=== PATIENT | female | born 1935 | race Hispanic/Latino ===

== ENCOUNTER 2017-07-10 15:14 | Inpatient (IN) | payer MEDICARE ==
[~2017-07-10] VITALS: Ht 162.6 cm; Wt 81.2 kg
[~2017-07-10 15:14] MED LIST: ALEVE220 M1 PO; LISINOPRIL20 MG PO; MECLIZINE HCL12.5 MG PO; OMEPRAZOLE40 MG PO; PRAVASTATIN SOD40 MG PO; TIZANIDINE HCL4 MG PO
[2017-07-10] MEDS ORDERED: HYDROCODONE/APAP 5MG-325MG TAB PO ONE (15:45)
[2017-07-10] MEDS ORDERED: IBUPROFEN 600 MG TAB PO STA (16:03)
[2017-07-10 16:16] LABS: BASOPHILS % 0.2 % (0.0-1.0); HEMATOCRIT 30.2 % (34.2-44.1); HEMOGLOBIN 10.3 g/dL (12.0-16.0); LYMPHOCYTES # (AUTO) 0.4 (1.0-3.2); MEAN CORPUSCULAR HEMOGLOBIN 36.9 pg (28-32); MEAN CORPUSCULAR HGB CONC 34.1 g/dL (31-35); MEAN CORPUSCULAR VOLUME 108.2 fL (81-99); MONOCYTES # (AUTO) 7.1 (0.2-0.8); MONOCYTES % 33.4 % (4.4-11.3); NEUTROPHILS # (AUTO) 13.5 (2.1-6.9); NEUTROPHILS % 63.5 % (38.7-80.0); PLATELET COUNT 211 x10e3/uL (140-360); RED BLOOD COUNT 2.79 x10e6/uL (3.6-5.1); RED CELL DISTRIBUTION WIDTH 18.2 % (11.7-14.4)
[2017-07-10 16:36] LABS: ALANINE AMINOTRANSFERASE 10 IU/L (0-55); ALBUMIN 3.6 g/dL (3.5-5.0); ALBUMIN/GLOBULIN RATIO 0.9 (0.8-2.0); ALKALINE PHOSPHATASE 63 IU/L (40-150); ANION GAP 13.9 mmol/L (8-16); BLOOD UREA NITROGEN 16 mg/dL (7-26); BUN/CREATININE RATIO 19 (6-25); CALCIUM 10.7 mg/dL (8.4-10.2); CARBON DIOXIDE 28 mmol/L (22-29); CHLORIDE 96 mmol/L (98-107); CREATININE, SERUM 0.84 mg/dL (0.57-1.11); EST GLOMERULAR FILTRATION RATE > 60 ML/MIN (60-); GLUCOSE 114 mg/dL (74-118); POTASSIUM 3.9 mmol/L (3.5-5.1); SODIUM 134 mmol/L (136-145)
--- NOTE | 2017-07-10 16:45 | Diagnostic Imaging Report ---
PROCEDURE:KNEE THREE VIEWS BILATERAL COMPARISON:None. INDICATIONS:LEFT KNEE PAIN/SWELLING FINDINGS: There are no fractures, dislocations, lytic or blastic lesions. The bones are well-mineralized. The soft-tissues are unremarkable. Severe degenerative changes in the right knee with lggv-jk-gpqs contact and bony remodeling of the lateral compartment. Moderate degenerative changes in the medial compartment with meniscal calcifications. Moderate degenerative changes in the patellofemoral compartment with a large suprapatellar joint effusion. Large loose joint bodies posteriorly. Moderate tricompartmental degenerative changes in the left knee. The lateral meniscal calcifications. Moderate suprapatellar joint effusions. Small lucent bodies. CONCLUSION: 1. Severe degenerative changes in the right knee with hrbh-mv-wryb contact and lateral compartment. 2. Moderate degenerative changes in left knee. Dictated by: Alfredo Hopkins M.D. on 07/10/2017 at 16:46 Electronically approved by: Alfredo Hopkins M.D. on 07/10/2017 at 16:46
[2017-07-10 17:07] LABS: LYMPHOCYTES % (MANUAL) 2 % (19-48); METAMYELOCYTES % (MANUAL) 3 % (0-0); MONOCYTES % (MANUAL) 24 % (3.4-9.0); NEUTROPHILS % (MANUAL) 70 % (40-74)
[2017-07-10 17:08] LABS: PLATELET ESTIMATE ADEQUATE; PLATELET MORPHOLOGY COMMENT NORMAL; RBC MORPHOLOGY COMMENT NORMAL
--- NOTE | 2017-07-10 20:47 | Diagnostic Imaging Report ---
EXAMINATION: CHEST SINGLE (PORTABLE) INDICATION: \S\fever \S\[id number] \S\1950 \S\Y COMPARISON: 07/06/2013 FINDINGS: AP view TUBES and LINES: None. LUNGS: Lungs are well inflated. Lungs are clear. There is no evidence of pneumonia or pulmonary edema. PLEURA: No pleural effusion or pneumothorax. HEART AND MEDIASTINUM: The cardiac silhouette is borderline in size. Aorta is calcified and mildly tortuous. BONES AND SOFT TISSUES: No acute osseous lesion. Soft tissues are unremarkable. UPPER ABDOMEN: No free air under the diaphragm. IMPRESSION: No acute thoracic abnormality. Signed by: Dr. Kenton Greer MD on 07/10/2017 8:44 PM
[2017-07-10] MEDS ORDERED: LIDOCAINE HCL 1% LOCAL INJ 20 ML VIAL INJ ONE (21:30)
[2017-07-10 21:41] LABS: BILIRUBIN,URINE 1+ (NEGATIVE); KETONES,URINE 2+ (NEGATIVE); LEUKOCYTE ESTERASE ,URINE TRACE (NEGATIVE); NITRITE,URINE NEGATIVE (NEGATIVE); URINE UROBILINOGEN 8 mg/dL (0.2 - 1)
[2017-07-10 21:42] LABS: CLARITY,URINE SL CLOUDY (CLEAR); COLOR,URINE ORANGE (YELLOW); PROTEIN,URINE DIPSTICK TRACE (NEGATIVE)
[2017-07-10] MEDS ORDERED: PIPER-TAZ 3.375 GM 50 ML IV STA (21:55)
[2017-07-10] MEDS ORDERED: VANCOMYCIN 1GM/NS 250 ML 250 ML IV STA (21:55)
[2017-07-10 22:00] LABS: BACTERIA,URINE FEW /HPF; EPITHELIAL CELLS,URINE RARE /LPF; WBC,URINE (MAN) 0-5 /HPF (0-5)
[2017-07-10 23:06] LABS: BODY FLUID APPEARANCE CLOUDY; BODY FLUID COLOR YELLOW; BODY FLUID TYPE SYNOVIAL
[2017-07-10 23:07] LABS: RBC,BODY FLUID 0 cells/uL; WBC,BODY FLUID 128267 cells/uL
[2017-07-10] MEDS ORDERED: HYDROCODONE/APAP 5MG-325MG TAB ONE (23:22)
[2017-07-10 23:34] LABS: LYMPHOCYTES,BODY FLUID 5 %; NEUTROPHILS,BODY FLUID 95 %
[2017-07-10] MEDS ORDERED: SODIUM CHLORIDE 0.9% 1000ML 1,000 ML IV ONE (23:45)
[2017-07-10] MEDS ORDERED: ONDANSETRON HCL INJ 2 MG/ML VIAL IV PRN (23:45)
[2017-07-10] MEDS ORDERED: VANCOMYCIN 1GM/NS 250 ML 250 ML IV SCH (23:45)
--- OUTSIDE RECORDS SUMMARY | 2017-07-10 23:58 | XMS REPORT ---
Author Author [facility] [place] Address Unknown Phone Unavailable Care Team Providers Care Salad Bar Clerk Name Role Phone VEDA LAWSON Unavailable Unavailable Problems This patient has no known problems. Allergies, Adverse Reactions, Alerts This patient has no known allergies or adverse reactions. Medications This patient has no known medications. Results Test Description Test Time Test Comments Text Results Atomic Results Result Comments CHEST SINGLE (PORTABLE) [place] [address] Patient Name: CARMINA ESPINAL MR #: [id number] : 1935 Age/Sex: 82/F Req #: [id number] Adm Physician: Ordered by: CONTRERAS MARROQUIN MD Report #: [id number] Location: ER Room/Bed: ___ Procedure: [id number] DX/CHEST SINGLE (PORTABLE) Exam Date: 07/10/17 Exam Time: 1949 REPORT STATUS: Signed EXAMINATION: CHEST SINGLE (PORTABLE) INDICATION: COMPARISON: 07/06/2013 FINDINGS: AP view TUBES and LINES: None. LUNGS: Lungs are well inflated. Lungs are clear. There is no evidence of pneumonia or pulmonary edema. PLEURA: No pleural effusion or pneumothorax. HEART AND MEDIASTINUM: The cardiac silhouette is borderline in size. Aorta is calcified and mildly tortuous. BONES AND SOFT TISSUES: No acute osseous lesion. Soft tissues are unremarkable. UPPER ABDOMEN: No free air under the diaphragm. IMPRESSION: No acute thoracic abnormality. Signed by: Dr. Kenton Weathers MD on 2017 8:44 PM Dictated By: KENTON WEATHERS MD 43 Transcribed By: KAILA on 07/10/172043 COPY TO: CONTRERAS MARROQUIN MD KNEE THREE VIEWS BILATERAL [place] [address] Patient Name: CARMINA ESPINAL MR #: [id number] : 1935 Age/Sex: 82/F Req #: [id number] Adm Physician: Ordered by: EMILIO HWANG NP Report #: [id number] Location: ER Room/Bed: Procedure: [id number] DX/KNEE THREE VIEWS BILATERAL Exam Date: 07/10/17 Exam Time: 1615 REPORT STATUS: Signed PROCEDURE: KNEE THREE VIEWS BILATERAL COMPARISON: None. INDICATIONS: LEFT KNEE PAIN/SWELLING FINDINGS: There are no fractures, dislocations, lytic or blastic lesions. The bones are well-mineralized. The soft-tissues are unremarkable. Severe degenerative changes in the right knee with brdj-rr-okva contact and bony remodeling of the lateral compartment. Moderate degenerative changes in the medial compartment with meniscal calcifications. Moderate degenerative changes in the patellofemoral compartment with a large suprapatellar joint effusion. Large loose joint bodies posteriorly. Moderate tricompartmental degenerative changes in the left knee. The lateral meniscal calcifications. Moderate suprapatellar joint effusions. Small lucent bodies. CONCLUSION: 1. Severe degenerative changes in the right knee with tinx-ik-bhas contact and lateral compartment. 2. Moderate degenerative changes in left knee. Dictated by : Christian Barron M.D. on 07/10/2017 at 16:46 Electronically approved by: Christian Barron M.D. on 07/10/2017 at 16:46 Dictated By: CHRISTIAN BARRON MD 45 Transcribed By: VIBHA on 07/10/171645 COPY TO: EMILIO HWANG NP
[2017-07-11] VITALS (45 sets, daily range): BP systolic 96–187; BP diastolic 44–130
[2017-07-11] MEDS: SODIUM CHLORIDE 0.9% 1000ML 1,000 ML IV SCH ×3 (01:04→19:20)
[2017-07-11] MEDS ORDERED: VITAMIN D35000 UNIT PO (02:24)
[2017-07-11] MEDS ORDERED: MELOXICAM7.5 MG PO (02:24)
[2017-07-11] MEDS ORDERED: SINGULAIR10 MG PO (02:24)
[2017-07-11] MEDS ORDERED: BACITRACIN 50,000 UNIT VIAL ONE ×3 (02:25→13:39)
[2017-07-11] MEDS ORDERED: ZOFRAN ODT4 MG SL (02:26)
[2017-07-11] MEDS ORDERED: TIMOLOL MALEATE10 ML OU (02:26)
[2017-07-11] MEDS ORDERED: PIPER-TAZ 3.375 GM 50 ML IV SCH (06:00)
[2017-07-11] MEDS ORDERED: ONDANSETRON HCL 4 MG ORAL DISINTEGRATING TAB SL PRN (06:30)
[2017-07-11 06:34] LABS: BASOPHILS % 0.2 % (0.0-1.0); HEMATOCRIT 23.6 % (34.2-44.1); HEMOGLOBIN 8.1 g/dL (12.0-16.0); LYMPHOCYTES # (AUTO) 1.2 (1.0-3.2); MEAN CORPUSCULAR HEMOGLOBIN 37.9 pg (28-32); MEAN CORPUSCULAR HGB CONC 34.3 g/dL (31-35); MEAN CORPUSCULAR VOLUME 110.3 fL (81-99); MONOCYTES # (AUTO) 6.4 (0.2-0.8); MONOCYTES % 38.7 % (4.4-11.3); NEUTROPHILS # (AUTO) 8.8 (2.1-6.9); NEUTROPHILS % 53.2 % (38.7-80.0); PLATELET COUNT 170 x10e3/uL (140-360); RED BLOOD COUNT 2.14 x10e6/uL (3.6-5.1); RED CELL DISTRIBUTION WIDTH 18.5 % (11.7-14.4)
[2017-07-11] MEDS: PIPER-TAZ 3.375 GM 50 ML IV SCH ×3 (06:51→23:22)
[2017-07-11 06:54] LABS: ALANINE AMINOTRANSFERASE 8 IU/L (0-55); ALBUMIN 2.6 g/dL (3.5-5.0); ALBUMIN/GLOBULIN RATIO 0.8 (0.8-2.0); ALKALINE PHOSPHATASE 53 IU/L (40-150); ANION GAP 10.5 mmol/L (8-16); BLOOD UREA NITROGEN 20 mg/dL (7-26); BUN/CREATININE RATIO 27 (6-25); CALCIUM 9.6 mg/dL (8.4-10.2); CARBON DIOXIDE 26 mmol/L (22-29); CHLORIDE 102 mmol/L (98-107); CREATININE, SERUM 0.73 mg/dL (0.57-1.11); EST GLOMERULAR FILTRATION RATE > 60 ML/MIN (60-); GLUCOSE 105 mg/dL (74-118); POTASSIUM 3.5 mmol/L (3.5-5.1); SODIUM 135 mmol/L (136-145)
[2017-07-11] MEDS: PANTOPRAZOLE SOD 40 MG TABEC PO SCH (07:30)
[2017-07-11] MEDS ORDERED: VANCOMYCIN 1GM/NS 250 ML 250 ML IV SCH (09:00)
[2017-07-11] MEDS: TIZANIDINE HCL 4 MG TAB PO SCH ×2 (09:00→17:00)
[2017-07-11] MEDS: TIMOLOL MALEATE(OPTHALMIC) 1 EA BTL OU SCH (09:00)
--- NOTE | 2017-07-11 09:01 | History and Physical ---
PRIMARY CARE PHYSICIAN: The patient does not recall. CHIEF COMPLAINT: Knee pain. HISTORY OF PRESENT ILLNESS: This is an 82-year-old woman with a history of septic knee, now developing swelling and pain of the bilateral knees. She states this has been ongoing for about 3 days. She has no fevers. Her last hospitalization she states was last year at [facility] when she had arthrocentesis. She states her last antibiotic use was last year. Here arthrocentesis was performed, which showed white blood cell count of 128,000. The patient was admitted for further evaluation and management. Overnight, the patient was found to have atrial fibrillation, which she states is new. PAST MEDICAL HISTORY: Septic arthritis of the knee, hypertension, GERD. PAST SURGICAL HISTORY: Hysterectomy, bilateral cataract excision. ALLERGIES: PER ELECTRONIC MEDICAL RECORD. FAMILY HISTORY AND SOCIAL HISTORY: The patient is . She has 3 children. No alcohol, illicits or cigarettes. MEDICATIONS: Per electronic medical record. REVIEW OF SYSTEMS: Denies any chest pain or shortness of breath. PHYSICAL EXAMINATION VITAL SIGNS: Have been reviewed. T-max 101.3, blood pressure 106/51. GENERAL: A tired-appearing woman resting in bed. HEENT: Anicteric. CARDIOVASCULAR: Normal S1 and S2. LUNGS: Moderate breath sounds. ABDOMEN: Soft, nontender, nondistended. EXTREMITIES: She has large, edematous knees with Band-Aid in place. She has minimal tenderness of the knees. SKIN: Dry. PSYCHIATRIC: Flat affect. NEUROLOGIC: Alert and oriented times 2. Moving all extremities. LABS: Reviewed. MEDICATIONS: Reviewed. ASSESSMENT AND PLAN: An 82-year-old woman. 1. Sepsis. 2. Septic arthritis of the knees. 3. Atrial fibrillation, new onset. 4. Microcytic anemia. 5. Hypercalcemia secondary to dehydration. 6. Hyperbilirubinemia, possibly secondary to dehydration. 7. Overweight state. Body mass index 29.2. 8. 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 PLAN 1. Continue IV Zosyn and IV vancomycin. 2. Rate control. Rehydrate. Cardiology consultation for AFib and for preop evaluation. 3. Receiving muscle relaxant, tizanidine. 4. Continue Singulair. 5. Follow blood counts. 6. Rehydrate and reassess calcium and bilirubin levels. 7. Pain control for severe degenerative joint knee disease. 8. Lovenox and Protonix. 9. Disposition: Cardiology for preop evaluation and for management of AFib. Orthopedics for management of septic arthritis. Will continue IV antibiotics. 10. Critical care time more than 35 minutes. Job#: [id number]
[2017-07-11 09:12] LABS: MAGNESIUM 1.3 MG/DL (1.3-2.1)
--- NOTE | 2017-07-11 09:19 | Consultation ---
DATE OF CONSULTATION: July 11, 2017 REASON FOR CONSULTATION: AFib. HPI: This is an 82-year-old female that presented with right knee pain and edema. According to the family, the son and daughter at the bedside, this has been going on for many years now. She is never getting better. She was brought over here for evaluation. She had an x-ray done that showed severe degenerative changes with nwpj-bl-aydj contact on the right knee, and surgical intervention was planned. Yesterday, she went into AFib, and was transferred to the ICU for surgical and cardiac evaluation. She has no cardiac history of AFib, and no cardiac issue according to the family in the past. She denied any chest pain, any palpitations, any dizziness, any shortness of breath, or diaphoresis. PAST MEDICAL HISTORY: Hypertension, hyperlipidemia, chronic anemia, vertigo, right knee pain and swelling. PAST SURGICAL HISTORY: and hysterectomy and fluid aspiration from the right knee. FAMILY HISTORY: Positive for hypertension. SOCIAL HISTORY: No smoking. No drinking. She lives at home with family. MEDICATIONS: See med list. ALLERGIES: SHE IS NOT ALLERGIC TO ANY MEDICATIONS. REVIEW OF SYSTEMS: Negative except as mentioned above. PHYSICAL EXAMINATION VITAL SIGNS: Temperature 98, heart rate 79, blood pressure 124/56, respirations 18, oxygen saturation 98% on 2 L nasal cannula. GENERAL: She is alert, awake and oriented times 3. HEENT: Mucous membranes moist. NECK: Supple. LUNGS: Bilateral clear to auscultation. CARDIOVASCULAR: Irregularly irregular. ABDOMEN: Soft. NEUROLOGICAL: Intact. EXTREMITIES: Lower with no edema. The right knee is swollen. LABS: Sodium 135, potassium 3.5, chloride 102, CO2 26, BUN 20, creatinine 0.73, glucose 105. White blood cells 16.6, hemoglobin 8.1, hematocrit 23.6, and platelets 170,000. IMPRESSION 1. Atrial fibrillation, new onset with controlled rate. 2. Hypertension. 3. Anemia. 4. Septic arthritis of the right knee. ASSESSMENT AND PLAN: Will go ahead and get an echocardiogram to assess the left ventricular and the valve function. Will put her on low dose beta joe. Check TSH. I discussed long-term p.o. anticoagulation with the family. They want to think about it. Will start anticoagulation if family agrees after surgical intervention. Further cardiac workup pending clinical course. Thank you for this consultation. DICTATED BY NURIA BROOKE NP Job#: [id number] RI
[2017-07-11 09:39] LABS: THYROID STIMULATING HORMONE 0.793 uIU/mL (0.350-4.940)
[2017-07-11] MEDS: VANCOMYCIN 1GM/NS 250 ML 250 ML IV SCH ×2 (10:06→21:22)
[2017-07-11 10:53] LABS: BODY FLUID TYPE SYNOVIAL
[2017-07-11 10:54] LABS: BODY FLUID APPEARANCE CLOUDY; BODY FLUID COLOR YELLOW
[2017-07-11 10:55] LABS: RBC,BODY FLUID 1980 cells/uL; WBC,BODY FLUID 516582 cells/uL
[2017-07-11 11:01] LABS: MONO/MACROPHG,BODY FLUID 2 %; NEUTROPHILS,BODY FLUID 98 %
[2017-07-11 11:25] LABS: BAND NEUTROPHILS % (MANUAL) 6 %; LYMPHOCYTES % (MANUAL) 6 % (19-48); MONOCYTES % (MANUAL) 23 % (3.4-9.0); NEUTROPHILS % (MANUAL) 65 % (40-74)
[2017-07-11 11:27] LABS: ANISOCYTOSIS MODERATE; PLATELET ESTIMATE ADEQUATE; PLATELET MORPHOLOGY COMMENT NORMAL; RBC MORPHOLOGY COMMENT ABNORMAL
[2017-07-11 11:28] LABS: HYPOCHROMASIA SLIGHT
[2017-07-11] MEDS ORDERED: FENTANYL CITRATE/PF 100MCG/2 ML INJ ONE ×2 (16:05→18:05)
[2017-07-11] MEDS: ENOXAPARIN SOD INJ 40 MG/0.4 ML SYR SC SCH (17:00)
[2017-07-11] MEDS: MONTELUKAST SODIUM 10 MG TAB PO SCH (17:00)
[2017-07-11] MEDS ORDERED: SEVOFLURANE INHAL SOLN 250 ML PEN BTL ONE (17:41)
[2017-07-11] MEDS ORDERED: ONDANSETRON HCL INJ 2 MG/ML VIAL ONE (17:41)
[2017-07-11] MEDS ORDERED: LABETALOL HCL 5 MG/ML 20ML VIAL ONE (17:41)
[2017-07-11] MEDS ORDERED: PROPOFOL IV EMULSION 10 MG/ML 20 ML VIAL ONE (17:41)
[2017-07-11] MEDS ORDERED: DEXAMETHASONE SOD PHOS INJ 4 MG/ML VIAL ONE (17:41)
[2017-07-11] MEDS ORDERED: LIDOCAINE HCL 2% LOCAL INJ 5 ML SDV VIAL INJ ONE (17:41)
[2017-07-11] MEDS ORDERED: HYDROMORPHONE 0.2MG/ML-SOD CHL 30ML PCA SYRINGE IV PRN (17:45)
[2017-07-11] MEDS ORDERED: MIDAZOLAM HCL 2 MG/2 ML VIAL ONE (18:05)
[2017-07-11] MEDS: PRAVASTATIN 20 MG TAB PO SCH (20:20)
[2017-07-11] MEDS: MORPHINE SULFATE 2 MG/ML SYR IV PRN (20:20)
[2017-07-11] MEDS: METOPROLOL TARTRATE 25 MG TAB PO SCH (23:22)
[2017-07-11] MEDS: ACETAMINOPHEN 325 MG TAB PO PRN (23:22)
[2017-07-12] VITALS (49 sets, daily range): BP systolic 98–176; BP diastolic 37–75
[2017-07-12] MEDS: SODIUM CHLORIDE 0.9% 1000ML 1,000 ML IV SCH ×2 (05:24→13:00)
[2017-07-12 06:06] LABS: BASOPHILS % 0.2 % (0.0-1.0); HEMATOCRIT 23.5 % (34.2-44.1); LYMPHOCYTES # (AUTO) 1.2 (1.0-3.2); LYMPHOCYTES % 7.7 % (18.0-39.1); MEAN CORPUSCULAR HEMOGLOBIN 37.7 pg (28-32); MEAN CORPUSCULAR VOLUME 110.8 fL (81-99); MONOCYTES # (AUTO) 4.9 (0.2-0.8); NEUTROPHILS # (AUTO) 9.5 (2.1-6.9); NEUTROPHILS % 60.3 % (38.7-80.0); PLATELET COUNT 176 x10e3/uL (140-360); RED BLOOD COUNT 2.12 x10e6/uL (3.6-5.1); RED CELL DISTRIBUTION WIDTH 18.5 % (11.7-14.4)
[2017-07-12] MEDS: PANTOPRAZOLE SOD 40 MG TABEC PO SCH (08:30)
[2017-07-12] MEDS: PIPER-TAZ 3.375 GM 50 ML IV SCH ×3 (08:30→23:00)
[2017-07-12] MEDS: METOPROLOL TARTRATE 25 MG TAB PO SCH ×2 (08:32→21:06)
[2017-07-12] MEDS: TIZANIDINE HCL 4 MG TAB PO SCH ×2 (08:33→17:00)
[2017-07-12] MEDS: TIMOLOL MALEATE(OPTHALMIC) 1 EA BTL OU SCH (09:00)
[2017-07-12] MEDS: VANCOMYCIN 1GM/NS 250 ML 250 ML IV SCH ×2 (09:30→21:07)
[2017-07-12 11:41] LABS: ANISOCYTOSIS SLIGHT; BAND NEUTROPHILS % (MANUAL) 2 %; LYMPHOCYTES % (MANUAL) 8 % (19-48); MONOCYTES % (MANUAL) 19 % (3.4-9.0); NEUTROPHILS % (MANUAL) 71 % (40-74); PLATELET ESTIMATE ADEQUATE; PLATELET MORPHOLOGY COMMENT NORMAL; RBC MORPHOLOGY COMMENT NORMAL
[2017-07-12] MEDS: MORPHINE SULFATE 2 MG/ML SYR IV PRN ×2 (11:55→21:38)
--- NOTE | 2017-07-12 13:14 | Progress Note ---
DATE: July 12, 2017 at 7:15 a.m. SUBJECTIVE: Overnight the patient underwent incision and drainage of bilateral knees. REVIEW OF SYSTEMS: Denies any dizziness. OBJECTIVE VITAL SIGNS: Reviewed. GENERAL APPEARANCE: A tired-appearing woman resting in the bed. HEENT: Anicteric. CARDIOVASCULAR: Normal S1 and S2. LUNGS: Moderate breath sounds, ABDOMEN: Soft and nontender. Nondistended. EXTREMITIES: Dressings on bilateral knees with Dalton bandage and drains bilaterally. NEUROLOGIC: Alert and appropriate. SKIN: Dry. PSYCHIATRIC: Flat affect. LABS: Reviewed. MEDICATIONS: Reviewed. ASSESSMENT: An 82-year-old woman with: 1. Sepsis. 2. Septic arthritis of the knees. 3. Atrial fibrillation, new onset. 4. Microcytic anemia. 5. Hypercalcemia secondary to dehydration. 6. Hyperbilirubinemia, possible dehydration. 7. Overweight state. Body mass index 29.2. 8. 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 PLAN: 1. Continue antibiotics. 2. Follow up cultures. 3. Continue pain control. 4. Leukocytosis, improving. 5. is in order. 6. Continue vancomycin and Zosyn. 7. Monitor closely. 8. The patient can transition out of the ICU. Job#: [id number]
[2017-07-12] MEDS: MONTELUKAST SODIUM 10 MG TAB PO SCH (17:00)
[2017-07-12] MEDS: ENOXAPARIN SOD INJ 40 MG/0.4 ML SYR SC SCH (17:00)
--- NOTE | 2017-07-12 20:17 | Consultation ---
DATE OF CONSULTATION: INFECTIOUS DISEASE CONSULTATION REASON FOR CONSULTATION: Concern about infection in the knee. HISTORY OF PRESENT ILLNESS: This is a patient who is an 82-year-old female who has history of multiple infections according to the son. She was at [facility] nine months ago with some knee swelling, but she was given antibiotic for a day or two and then discharged home. The patient apparently is coming now with redness and swelling of bilateral knees. The patient has been on antibiotic up to one year ago. The patient is known to have history of infection of the knee before, history of hypertension, GERD, hysterectomy, bilateral cataract surgery. ALLERGIES: NKA. SOCIAL HISTORY: There is no smoking, drug abuse, alcohol abuse. FAMILY HISTORY: Otherwise unremarkable. REVIEW OF SYSTEMS: HEENT: There is no headache, visual changes, hearing changes. GI: There is no nausea, no vomiting, no diarrhea. CARDIAC: There is no arrhythmia. NEURO: No seizure activity. SKIN: There is no rash. Patient was admitted. She was started on vancomycin and Zosyn. Orthopedics was consulted. Patient underwent surgery. LABORATORY DATA: Reviewed. Her cultures are still pending. White count 15.6, hemoglobin 8, hematocrit 23. She is currently on vancomycin and Zosyn. Her synovial fluid showed a WBC of 51,000, was cloudy, but culture is still pending. Gram stain showed many WBCs, no organism. IMPRESSION: Infection of the knee. We need to get the old record from [facility]. Continue the current choice of antibiotic. Obtain a sed rate, C-reactive protein. Obtain a PICC line. Will discuss with Orthopedics and will follow with you. Job#: [id number] EV
[2017-07-12] MEDS: PRAVASTATIN 20 MG TAB PO SCH (21:07)
[2017-07-13] VITALS (57 sets, daily range): BP systolic 92–179; BP diastolic 34–118
[2017-07-13] MEDS: ACETAMINOPHEN 325 MG TAB PO PRN (03:14)
[2017-07-13] MEDS: SODIUM CHLORIDE 0.9% 1000ML 1,000 ML IV SCH ×2 (05:01→20:41)
[2017-07-13 05:31] LABS: BASOPHILS % 0.2 % (0.0-1.0); EOSINOPHILS % 0.1 % (0.0-6.0); LYMPHOCYTES # (AUTO) 1.5 (1.0-3.2); LYMPHOCYTES % 11.8 % (18.0-39.1); MEAN CORPUSCULAR HEMOGLOBIN 37.9 pg (28-32); MEAN CORPUSCULAR HGB CONC 34.6 g/dL (31-35); MEAN CORPUSCULAR VOLUME 109.5 fL (81-99); MONOCYTES # (AUTO) 3.5 (0.2-0.8); MONOCYTES % 28.5 % (4.4-11.3); NEUTROPHILS # (AUTO) 7.3 (2.1-6.9); NEUTROPHILS % 58.8 % (38.7-80.0); PLATELET COUNT 169 x10e3/uL (140-360); RED CELL DISTRIBUTION WIDTH 18.2 % (11.7-14.4)
[2017-07-13 05:39] LABS: HEMATOCRIT 20.8 % (34.2-44.1); HEMOGLOBIN 7.2 g/dL (12.0-16.0)
[2017-07-13 05:56] LABS: BLOOD UREA NITROGEN 12 mg/dL (7-26); BUN/CREATININE RATIO 20 (6-25); CALCIUM 8.7 mg/dL (8.4-10.2); CARBON DIOXIDE 23 mmol/L (22-29); CHLORIDE 105 mmol/L (98-107); CREATININE, SERUM 0.59 mg/dL (0.57-1.11); EST GLOMERULAR FILTRATION RATE > 60 ML/MIN (60-); GLUCOSE 105 mg/dL (74-118); SODIUM 136 mmol/L (136-145)
[2017-07-13] MEDS: PIPER-TAZ 3.375 GM 50 ML IV SCH ×2 (06:15→15:12)
[2017-07-13] MEDS: PANTOPRAZOLE SOD 40 MG TABEC PO SCH (08:04)
[2017-07-13] MEDS: METOPROLOL TARTRATE 25 MG TAB PO SCH ×2 (08:05→21:00)
[2017-07-13] MEDS: TIZANIDINE HCL 4 MG TAB PO SCH ×2 (08:05→17:03)
[2017-07-13] MEDS: TIMOLOL MALEATE(OPTHALMIC) 1 EA BTL OU SCH (08:06)
[2017-07-13] MEDS: VANCOMYCIN 1GM/NS 250 ML 250 ML IV SCH ×3 (08:23→22:25)
[2017-07-13] MEDS ORDERED: LATANOPROST2.5 ML OP (09:03)
[2017-07-13] MEDS ORDERED: SODIUM CHLORIDE 0.9% 250ML 250 ML IV ONE (09:30)
[2017-07-13] MEDS ORDERED: POTASSIUM CHLORIDE 20 MEQ TAB CR PO ONE (09:30)
[2017-07-13 11:33] LABS: BAND NEUTROPHILS % (MANUAL) 1 %; LYMPHOCYTES % (MANUAL) 10 % (19-48); MONOCYTES % (MANUAL) 30 % (3.4-9.0); NEUTROPHILS % (MANUAL) 59 % (40-74)
[2017-07-13 11:34] LABS: PLATELET ESTIMATE ADEQUATE; PLATELET MORPHOLOGY COMMENT NORMAL; RBC MORPHOLOGY COMMENT NORMAL
[2017-07-13] MEDS: HYDROCODONE/APAP 5MG-325MG TAB PO PRN (15:43)
[2017-07-13] MEDS: FUROSEMIDE INJ 10 MG/ML 2 ML VIAL IV PRN ×2 (16:00→22:35)
[2017-07-13] MEDS: MONTELUKAST SODIUM 10 MG TAB PO SCH (17:02)
[2017-07-13] MEDS: ENOXAPARIN SOD INJ 40 MG/0.4 ML SYR SC SCH (17:05)
--- NOTE | 2017-07-13 19:01 | Progress Note ---
DATE: July 13, 2017 at 6:24 p.m. SUBJECTIVE: Overnight blood counts lower. Started on blood transfusion 2 units. REVIEW OF SYSTEMS: Denies any dizziness, chest pain. OBJECTIVE VITAL SIGNS: Reviewed. GENERAL APPEARANCE: A tired-appearing woman resting in the bed. HEENT: Anicteric. CARDIOVASCULAR: Normal S1 and S2. No murmurs. ABDOMEN: Soft and nontender. Nondistended. EXTREMITIES: She had dressing on bilateral forelegs. She has an Dalton bandage. She has drains bilateral knees. Serosanguineous material. She has overgrown toenails on both feet. NEUROLOGIC: Alert and appropriate. SKIN: Dry. PSYCHIATRIC: Flat affect. LABS: Reviewed. MEDICATIONS: Reviewed. ASSESSMENT: An 82-year-old woman. 1. Sepsis. 2. Septic arthritis of the knees. 3. Atrial fibrillation, new onset. 4. Microcytic anemia. Microcytic anemia requiring blood transfusion. 5. Hypercalcemia secondary to dehydration. 6. Hyperbilirubinemia with possible dehydration. 7. Overgrown toenails. 8. Overweight state. BMI 29.2. 9. 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 PLAN: 1. Two units of packed red blood cells transfusion. 2. Podiatry consultation for overgrown toenails. 3. Continue pain control. 4. Continue vancomycin and /Zosyn. 5. Follow up cultures. All cultures remain negative. 6. Leukocytosis. Continue to resolve, vancomycin trough was 15.1 today, therapeutic. Continue current dose. 7. Monitor closely. Job#: [id number]
[2017-07-13] MEDS: LATANOPROST(OPTH) 2.5 ML BTL OP SCH (22:25)
[2017-07-13] MEDS: PRAVASTATIN 20 MG TAB PO SCH (22:25)
--- NOTE | 2017-07-13 23:35 | Progress Note ---
DATE: Ms. Gregg remains in the intensive care unit. She received 2 units of blood. Events noted. PHYSICAL EXAMINATION: GENERAL: She is currently alert, does not seem to be in acute distress. VITAL SIGNS: Stable, currently afebrile. HEENT: Normocephalic, does not appear icteric. NECK: Supple. No JVD, no lymphadenopathy, no thyromegaly. CHEST: Clear bilaterally. HEART: S1 and S2. No S3, S4, or murmur. ABDOMEN: Soft. Bowel sounds present. No tenderness. EXTREMITIES: No edema. The 2 drains in the knees remain with some serosanguineous drainage. LABORATORY DATA: Reviewed. Her cultures, still no growth, many WBCs noted on the wound. Blood cultures negative. Her white count is down to 12.38 from 21.35, her hemoglobin 7.2 from 10.3. Sodium 136, potassium 3.0, glucose 126. IMPRESSION: 1. Infection of the knee, bilateral, source bacteria is still unknown. I would recommend 3 weeks of intravenous antibiotic. We are still waiting on the cultures. Would need a peripherally inserted central catheter line. Continue with Zosyn and vancomycin. Can change to vancomycin and Rocephin. Will get a peripherally inserted central catheter line and get old record. Weekly complete blood cell count, weekly chemistry panel. Will follow the sedimentation rate, originally it was 93. 2. Atrial fibrillation, new onset. 3. Anemia. 4. Hypercalcemia secondary to dehydration. 5. Hyperbilirubinemia. 6. 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 Job#: [id number]
[2017-07-13] MEDS: MORPHINE SULFATE 2 MG/ML SYR IV PRN (23:45)
[2017-07-14] VITALS (19 sets, daily range): BP systolic 92–165; BP diastolic 52–90
[2017-07-14] MEDS: ACETAMINOPHEN 325 MG TAB PO PRN
[2017-07-14] MEDS: HYDROCODONE/APAP 5MG-325MG TAB PO PRN ×3 (04:00→20:45)
[2017-07-14 06:14] LABS: BASOPHILS % 0.3 % (0.0-1.0); EOSINOPHILS % 0.3 % (0.0-6.0); HEMATOCRIT 25.3 % (34.2-44.1); HEMOGLOBIN 8.9 g/dL (12.0-16.0); LYMPHOCYTES # (AUTO) 1.8 (1.0-3.2); LYMPHOCYTES % 14.8 % (18.0-39.1); MEAN CORPUSCULAR HEMOGLOBIN 36.5 pg (28-32); MEAN CORPUSCULAR HGB CONC 35.2 g/dL (31-35); MEAN CORPUSCULAR VOLUME 103.7 fL (81-99); MONOCYTES # (AUTO) 3.9 (0.2-0.8); MONOCYTES % 32.6 % (4.4-11.3); NEUTROPHILS # (AUTO) 6.1 (2.1-6.9); PLATELET COUNT 178 x10e3/uL (140-360); RED BLOOD COUNT 2.44 x10e6/uL (3.6-5.1); RED CELL DISTRIBUTION WIDTH 23.7 % (11.7-14.4)
[2017-07-14 06:31] LABS: ANION GAP 10.3 mmol/L (8-16); BLOOD UREA NITROGEN 16 mg/dL (7-26); BUN/CREATININE RATIO 24 (6-25); CARBON DIOXIDE 26 mmol/L (22-29); CHLORIDE 107 mmol/L (98-107); CREATININE, SERUM 0.66 mg/dL (0.57-1.11); EST GLOMERULAR FILTRATION RATE > 60 ML/MIN (60-); GLUCOSE 107 mg/dL (74-118); POTASSIUM 3.3 mmol/L (3.5-5.1); SODIUM 140 mmol/L (136-145)
[2017-07-14] MEDS: PIPER-TAZ 3.375 GM 50 ML IV SCH ×4 (07:01→23:58)
[2017-07-14] MEDS: MORPHINE SULFATE 2 MG/ML SYR IV PRN (07:06)
[2017-07-14] MEDS: PANTOPRAZOLE SOD 40 MG TABEC PO SCH (07:42)
[2017-07-14] MEDS: SODIUM CHLORIDE 0.9% 1000ML 1,000 ML IV SCH (07:42)
[2017-07-14 07:54] LABS: BAND NEUTROPHILS % (MANUAL) 3 %; LYMPHOCYTES % (MANUAL) 14 % (19-48); METAMYELOCYTES % (MANUAL) 4 % (0-0); MONOCYTES % (MANUAL) 17 % (3.4-9.0); MYELOCYTES % (MANUAL) 2 % (0-0); NEUTROPHILS % (MANUAL) 59 % (40-74); PROMYELOCYTES % (MANUAL) 1 % (0-0)
[2017-07-14 07:55] LABS: ANISOCYTOSIS SLIGHT; PLATELET ESTIMATE ADEQUATE; PLATELET MORPHOLOGY COMMENT NORMAL; RBC MORPHOLOGY COMMENT ABNORMAL
[2017-07-14] MEDS ORDERED: POTASSIUM CHLORIDE 20 MEQ TAB CR PO STA (08:24)
[2017-07-14] MEDS ORDERED: POTASSIUM CHLORIDE 20 MEQ TAB CR PO SCH (08:30)
[2017-07-14] MEDS: METOPROLOL TARTRATE 25 MG TAB PO SCH ×2 (08:54→20:54)
[2017-07-14] MEDS: TIZANIDINE HCL 4 MG TAB PO SCH ×2 (08:54→16:34)
[2017-07-14] MEDS: TIMOLOL MALEATE(OPTHALMIC) 1 EA BTL OU SCH (08:54)
[2017-07-14] MEDS: VANCOMYCIN 1GM/NS 250 ML 250 ML IV SCH ×2 (09:30→20:54)
--- NOTE | 2017-07-14 14:53 | Operative Report ---
DATE OF PROCEDURE: July 11, 2017 PREOPERATIVE DIAGNOSIS: Bilateral septic knees. POSTOPERATIVE DIAGNOSIS: Bilateral septic knees. OPERATIONS/PROCEDURES PERFORMED 1. The patient underwent irrigation and debridement of bilateral septic knees. 2. Partial synovectomies. 3. Placement of drains. BREAKDOWN MAN: None. ANESTHESIA: General endotracheal intubation anesthesia. IV FLUIDS: Per anesthesia record. BRIEF DESCRIPTION OF THE PATIENT'S OPERATIVE PROCEDURE: Ms. Gregg was taken to the operating room and placed in the supine position on the operating table. Following induction general anesthesia, as well as endotracheal intubation, the patient's bilaterally knees were swollen and warm. The patient's bilateral extremities was prepped and draped in a standard surgical fashion. The case was begun by creating an incision medial to the patella on the right. This incision was carried through skin only. Blunt dissection was used to deepen the incision to the level of extensor mechanism. The extensor mechanism was then incised in line with the skin incision. Purulent appearing fluid was extravasated from the knee. The arthrotomy was extended proximally and distally gaining full access to the knee joint. Cultures were taken. Synovial samples were also taken. A partial synovectomy was performed in the suprapatellar pouch region. The wound was then copiously irrigated with Bacitracin laden normal saline followed by regular normal saline in a pulse lavage fashion. The extensor mechanism was then repaired with a nonabsorbable, non-braided sutures. The remaining soft tissues were also closed with nonabsorbable, non-braided sutures. The wound was then copiously irrigated with 3 L of Bacitracin laden normal saline followed by 3 L of regular normal saline in a pulse lavage fashion. A drain was then placed in the wound. The extensor mechanism was repaired with a nonabsorbable, non-braided suture. The remaining soft tissues were also closed with nonabsorbable, non-braided sutures. Sterile dressings were applied. Attention was then turned to the patient's contralateral knee. An incision was again created along the medial aspect of the patella. The incision was carried through the skin only. Blunt dissection used to deepen the incision to the level of the extensor mechanism. The extensor mechanism was then incised in line with the skin incision. Again, purulent fluid was extravasated from the knee. Cultures were taken of the fluid and synovial samples were also sent for culture. This wound was again copiously irrigated with Bacitracin laden followed by regular normal saline in a pulse lavage fashion. A drain was placed in the bed of the wound. The extensor mechanism was repaired using nonabsorbable, non-braided suture. The remaining soft tissues were also closed with nonabsorbable, non-braided sutures. Sterile dressings were applied. The patient was provided bilateral knee immobilizers, awakened and taken to the postanesthesia care in stable condition. Job#: [id number] MERCEDES
[2017-07-14] MEDS: MONTELUKAST SODIUM 10 MG TAB PO SCH (16:33)
[2017-07-14] MEDS: ENOXAPARIN SOD INJ 40 MG/0.4 ML SYR SC SCH (16:34)
[2017-07-14] MEDS ORDERED: SODIUM CHLORIDE 0.9% 250ML 250 ML ONE (20:37)
[2017-07-14] MEDS: LATANOPROST(OPTH) 2.5 ML BTL OP SCH (20:54)
[2017-07-14] MEDS: PRAVASTATIN 20 MG TAB PO SCH (20:54)
[2017-07-15] VITALS (9 sets, daily range): BP systolic 105–182; BP diastolic 51–72
[2017-07-15] MEDS: HYDROCODONE/APAP 5MG-325MG TAB PO PRN ×4 (02:50→19:35)
[2017-07-15] MEDS: PIPER-TAZ 3.375 GM 50 ML IV SCH ×3 (06:36→15:16)
[2017-07-15] MEDS: PANTOPRAZOLE SOD 40 MG TABEC PO SCH (07:30)
[2017-07-15 07:48] LABS: BASOPHILS % 0.4 % (0.0-1.0); EOSINOPHILS # (AUTO) 0.1 (0.0-0.4); EOSINOPHILS % 0.8 % (0.0-6.0); HEMATOCRIT 27.1 % (34.2-44.1); HEMOGLOBIN 9.1 g/dL (12.0-16.0); LYMPHOCYTES # (AUTO) 1.8 (1.0-3.2); LYMPHOCYTES % 15.4 % (18.0-39.1); MEAN CORPUSCULAR HEMOGLOBIN 35.1 pg (28-32); MEAN CORPUSCULAR HGB CONC 33.6 g/dL (31-35); MEAN CORPUSCULAR VOLUME 104.6 fL (81-99); MONOCYTES # (AUTO) 3.3 (0.2-0.8); MONOCYTES % 28.7 % (4.4-11.3); NEUTROPHILS # (AUTO) 6.1 (2.1-6.9); NEUTROPHILS % 53.9 % (38.7-80.0); PLATELET COUNT 216 x10e3/uL (140-360); RED BLOOD COUNT 2.59 x10e6/uL (3.6-5.1); RED CELL DISTRIBUTION WIDTH 22.7 % (11.7-14.4)
[2017-07-15] MEDS: TIMOLOL MALEATE(OPTHALMIC) 1 EA BTL OU SCH (08:59)
[2017-07-15] MEDS: DOCUSATE SODIUM 100 MG CAP PO SCH ×2 (08:59→17:05)
[2017-07-15] MEDS: POTASSIUM CHLORIDE 20 MEQ TAB CR PO SCH (09:00)
[2017-07-15] MEDS: TIZANIDINE HCL 4 MG TAB PO SCH ×2 (09:00→17:05)
[2017-07-15] MEDS: SENNOSIDES 8.6 MG TAB PO SCH ×2 (09:00→17:05)
[2017-07-15] MEDS: METOPROLOL TARTRATE 25 MG TAB PO SCH ×2 (09:00→21:59)
[2017-07-15] MEDS: VANCOMYCIN 1GM/NS 250 ML 250 ML IV SCH ×2 (09:30→22:35)
[2017-07-15 11:02] LABS: BAND NEUTROPHILS % (MANUAL) 2 %; LYMPHOCYTES % (MANUAL) 15 % (19-48); MONOCYTES % (MANUAL) 13 % (3.4-9.0); NEUTROPHILS % (MANUAL) 62 % (40-74)
[2017-07-15 11:03] LABS: HYPOCHROMASIA SLIGHT
[2017-07-15 11:04] LABS: ANISOCYTOSIS SLIGHT; PLATELET ESTIMATE ADEQUATE; PLATELET MORPHOLOGY COMMENT NORMAL; RBC MORPHOLOGY COMMENT NORMAL
[2017-07-15] MEDS: ENOXAPARIN SOD INJ 40 MG/0.4 ML SYR SC SCH (17:05)
[2017-07-15] MEDS: MONTELUKAST SODIUM 10 MG TAB PO SCH (17:05)
[2017-07-15] MEDS: LATANOPROST(OPTH) 2.5 ML BTL OP SCH (21:59)
[2017-07-15] MEDS: PRAVASTATIN 20 MG TAB PO SCH (21:59)
[2017-07-16] VITALS (7 sets, daily range): BP systolic 121–194; BP diastolic 53–90
[2017-07-16] MEDS: HYDROCODONE/APAP 5MG-325MG TAB PO PRN ×3 (01:15→14:53)
[2017-07-16] MEDS: PIPER-TAZ 3.375 GM 50 ML IV SCH ×3 (07:03→23:27)
[2017-07-16] MEDS: PANTOPRAZOLE SOD 40 MG TABEC PO SCH (07:30)
[2017-07-16 09:26] LABS: ANION GAP 8.7 mmol/L (8-16); BLOOD UREA NITROGEN 12 mg/dL (7-26); BUN/CREATININE RATIO 19 (6-25); CALCIUM 9.6 mg/dL (8.4-10.2); CARBON DIOXIDE 28 mmol/L (22-29); CHLORIDE 105 mmol/L (98-107); CREATININE, SERUM 0.62 mg/dL (0.57-1.11); EST GLOMERULAR FILTRATION RATE > 60 ML/MIN (60-); GLUCOSE 127 mg/dL (74-118); POTASSIUM 3.7 mmol/L (3.5-5.1); SODIUM 138 mmol/L (136-145)
[2017-07-16] MEDS: DOCUSATE SODIUM 100 MG CAP PO SCH ×2 (10:09→17:44)
[2017-07-16] MEDS: POTASSIUM CHLORIDE 20 MEQ TAB CR PO SCH (10:09)
[2017-07-16] MEDS: TIMOLOL MALEATE(OPTHALMIC) 1 EA BTL OU SCH (10:09)
[2017-07-16] MEDS: TIZANIDINE HCL 4 MG TAB PO SCH ×2 (10:10→17:44)
[2017-07-16] MEDS: SENNOSIDES 8.6 MG TAB PO SCH ×2 (10:10→17:44)
[2017-07-16] MEDS: VANCOMYCIN 1GM/NS 250 ML 250 ML IV SCH ×2 (10:10→22:00)
[2017-07-16] MEDS: METOPROLOL TARTRATE 25 MG TAB PO SCH ×2 (10:10→21:10)
--- NOTE | 2017-07-16 16:27 | Diagnostic Imaging Report ---
PROCEDURE: A single AP view of the chest. COMPARISON: Patients [facility], DX, CHEST SINGLE (PORTABLE), 07/10/2017, 19:50. INDICATIONS: PICC LINE PLACEMENT FINDINGS: See impression. IMPRESSION: 1. interval placement of right-sided PICC line, with distal tip projecting in the proximal SVC. 2. Otherwise, no significant interval change. Darin Willams M.D. Dictated by: Darin Willams M.D. on 07/16/2017 at 16:28 Electronically approved by: Darin Willams M.D. on 07/16/2017 at 16:28
[2017-07-16] MEDS: ENOXAPARIN SOD INJ 40 MG/0.4 ML SYR SC SCH (17:44)
[2017-07-16] MEDS: MONTELUKAST SODIUM 10 MG TAB PO SCH (17:44)
[2017-07-16] MEDS: LATANOPROST(OPTH) 2.5 ML BTL OP SCH (21:09)
[2017-07-16] MEDS: PRAVASTATIN 20 MG TAB PO SCH (21:10)
[2017-07-16] MEDS ORDERED: SODIUM CHLORIDE 0.9% 250ML 250 ML ONE (22:06)
[2017-07-16] MEDS: MORPHINE SULFATE 2 MG/ML SYR IV PRN (22:28)
[2017-07-17] VITALS: BP 173/86
[2017-07-17] MEDS: MORPHINE SULFATE 2 MG/ML SYR IV PRN (02:33)
[2017-07-17 04:00] VITALS: BP 157/73
[2017-07-17] MEDS: PIPER-TAZ 3.375 GM 50 ML IV SCH ×3 (07:11→23:07)
[2017-07-17 07:18] LABS: BASOPHILS # (AUTO) 0.1 (0.0-0.1); BASOPHILS % 0.6 % (0.0-1.0); EOSINOPHILS # (AUTO) 0.1 (0.0-0.4); EOSINOPHILS % 0.8 % (0.0-6.0); HEMATOCRIT 27.7 % (34.2-44.1); HEMOGLOBIN 9.6 g/dL (12.0-16.0); LYMPHOCYTES # (AUTO) 1.7 (1.0-3.2); LYMPHOCYTES % 12.2 % (18.0-39.1); MEAN CORPUSCULAR HEMOGLOBIN 35.6 pg (28-32); MEAN CORPUSCULAR HGB CONC 34.7 g/dL (31-35); MEAN CORPUSCULAR VOLUME 102.6 fL (81-99); MONOCYTES # (AUTO) 4.4 (0.2-0.8); MONOCYTES % 31.8 % (4.4-11.3); NEUTROPHILS # (AUTO) 7.3 (2.1-6.9); NEUTROPHILS % 52.7 % (38.7-80.0); PLATELET COUNT 237 x10e3/uL (140-360); RED CELL DISTRIBUTION WIDTH 20.3 % (11.7-14.4)
--- NOTE | 2017-07-17 07:21 | Progress Note ---
DATE: July 14, 2017 TIME: 7 a.m. OVERNIGHT: No events. REVIEW OF SYSTEMS: Denies any dizziness. PHYSICAL EXAMINATION VITAL SIGNS: Reviewed. GENERAL: A tired-appearing woman resting in bed. HEENT: Anicteric. CARDIOVASCULAR: Normal S1 and S2. LUNGS: Moderate breath sounds. ABDOMEN: Soft and nontender. EXTREMITIES: Bilateral knee dressing. SKIN: Dry. PSYCHIATRIC: Normal affect. LABS: Reviewed. MEDICATIONS: Reviewed. ASSESSMENT: An 82-year-old woman with: 1. Sepsis. 2. Septic arthritis of the knees. 3. Atrial fibrillation, new-onset. 4. Microcytic anemia. 5. Hypercalcemia. 6. Hyperbilirubinemia. 7. Overgrown toenails. 8. Overweight state. Body mass index 29.2. 9. Severe degenerative joint disease. PLAN 1. She is status post blood transfusion. Hemoglobin has improved. 2. Continue physical therapy. 3. Continue local wound care. 4. Continue antibiotics per infectious disease. 5. All cultures remain negative. Job#: [id number] MS
--- NOTE | 2017-07-17 07:22 | Progress Note ---
DATE: July 15, 2017 TIME: 7 a.m. OVERNIGHT: No events. REVIEW OF SYSTEMS: Denies any dizziness or chest pain. PHYSICAL EXAMINATION VITAL SIGNS: Reviewed. GENERAL: A tired-appearing woman resting in bed. HEENT: Anicteric. CARDIOVASCULAR: Normal S1 and S2. LUNGS: Moderate breath sounds. ABDOMEN: Soft, nontender and nondistended. EXTREMITIES: Bilateral knee dressing. SKIN: Dry. PSYCHIATRIC: Flat affect. NEUROLOGY: Awake and alert. LABS: Reviewed. MEDICATIONS: Reviewed. ASSESSMENT: This is an 82-year-old woman with: 1. Sepsis. 2. Septic arthritis of the knees. 3. Atrial fibrillation, new-onset. 4. Microcytic anemia requiring blood transfusion. 5. Hypercalcemia secondary to dehydration. 6. Hyperbilirubinemia due to dehydration. 7. Overgrown toenails. 8. Overweight state: Body mass index 29.2. 9. Severe degenerative joint disease. 10. Constipation. PLAN 1. Bowel regimen. 2. Follow up blood counts. 3. Continue pain control. 4. Continue antibiotics. 5. All cultures remain negative. 6. Discharge planning. Job#: [id number] CA
--- NOTE | 2017-07-17 07:23 | Progress Note ---
DATE: July 16, 2017 TIME: 7:30 a.m. OVERNIGHT: No events. REVIEW OF SYSTEMS: Denies any dizziness. PHYSICAL EXAMINATION VITAL SIGNS: Reviewed. GENERAL: A tired-appearing woman resting in bed. HEENT: Anicteric. CARDIOVASCULAR: Normal S1 and S2. LUNGS: Moderate breath sounds. ABDOMEN: Soft, nontender and nondistended. EXTREMITIES: She has bilateral knee dressing. SKIN: Dry. PSYCHIATRIC: Flat affect. LABS: Reviewed. MEDICATIONS: Reviewed. ASSESSMENT: This is an 82-year-old woman with: 1. Sepsis. 2. Septic arthritis of the knees. 3. Atrial fibrillation, new-onset. 4. Microcytic anemia requiring blood transfusion. 5. Hypocalcemia due to dehydration. 6. Hyperbilirubinemia. 7. Overgrown toenails. 8. Overweight state: Body mass index 29.2. 9. Severe degenerative joint disease. 10. Constipation. PLAN 1. Continue bowel regimen. 2. Hemoglobin has improved to 9.1. 3. White blood cell count is 11.3. 4. Check potassium level. 5. Continue physical therapy. 6. Continue broad-spectrum antibiotics. 7. Discharge planning. Job#: [id number] MS
[2017-07-17] MEDS: PANTOPRAZOLE SOD 40 MG TABEC PO SCH (07:30)
--- NOTE | 2017-07-17 07:31 | Progress Note ---
DATE: July 17, 2017 TIME: 6:56 a.m. OVERNIGHT: No events. REVIEW OF SYSTEMS: Denies any dizziness or chest pain. VITAL SIGNS: Reviewed. PHYSICAL EXAMINATION GENERAL: A tired-appearing woman resting in bed. HEENT: Anicteric. Pupils respond to light. No oral lesions. CARDIOVASCULAR: Normal S1 and S2. LUNGS: Moderate breath sounds. ABDOMEN: Soft, nontender and nondistended. EXTREMITIES: Bilateral knee dressings. No edema. SKIN: Dry. PSYCHIATRIC: Flat affect. NEUROLOGIC: Alert and awake. LABS: Reviewed. MEDICATIONS: Reviewed. ASSESSMENT: An 82-year-old woman. 1. Sepsis. 2. Septic arthritis of the knees. 3. Atrial fibrillation, new onset. 4. Microcytic anemia requiring blood transfusion. 5. Hypocalcemia secondary to dehydration. 6. Hyperbilirubinemia with dehydration. 7. Overgrown toenails. 8. Overweight state. Body mass index 29.2. 9. 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 10. Constipation. PLAN 1. Continue antibiotics 2. Continue to follow blood counts. 3. Check CBC. 4. Discharge planning pending. 5. Apparently no pain at this time. Job#: [id number]
[2017-07-17 08:00] VITALS: BP 158/88
[2017-07-17] MEDS: DOCUSATE SODIUM 100 MG CAP PO SCH ×2 (09:06→16:48)
[2017-07-17] MEDS: TIMOLOL MALEATE(OPTHALMIC) 1 EA BTL OU SCH (09:06)
[2017-07-17] MEDS: POTASSIUM CHLORIDE 20 MEQ TAB CR PO SCH (09:09)
[2017-07-17] MEDS: METOPROLOL TARTRATE 25 MG TAB PO SCH ×2 (09:10→23:00)
[2017-07-17] MEDS: TIZANIDINE HCL 4 MG TAB PO SCH ×2 (09:11→16:48)
[2017-07-17] MEDS: VANCOMYCIN 1GM/NS 250 ML 250 ML IV SCH ×2 (09:11→21:08)
[2017-07-17] MEDS: SENNOSIDES 8.6 MG TAB PO SCH ×2 (09:11→16:48)
[2017-07-17 09:42] LABS: ANISOCYTOSIS SLIGHT; EOSINOPHILS % (MANUAL) 2 % (0-7); HYPOCHROMASIA SLIGHT; LYMPHOCYTES % (MANUAL) 11 % (19-48); MONOCYTES % (MANUAL) 27 % (3.4-9.0); NEUTROPHILS % (MANUAL) 60 % (40-74); PLATELET ESTIMATE ADEQUATE; PLATELET MORPHOLOGY COMMENT NORMAL; RBC MORPHOLOGY COMMENT NORMAL
[2017-07-17 12:00] VITALS: BP 113/53
[2017-07-17 16:00] VITALS: BP 176/72
[2017-07-17] MEDS: ENOXAPARIN SOD INJ 40 MG/0.4 ML SYR SC SCH (16:48)
[2017-07-17] MEDS: MONTELUKAST SODIUM 10 MG TAB PO SCH (16:48)
[2017-07-17] MEDS: ACETAMINOPHEN 325 MG TAB PO PRN (16:48)
[2017-07-17] MEDS: PRAVASTATIN 20 MG TAB PO SCH (21:08)
[2017-07-17] MEDS: LATANOPROST(OPTH) 2.5 ML BTL OP SCH (21:08)
[2017-07-17 22:14] VITALS: BP 176/72
[2017-07-17] MEDS: HYDROCODONE/APAP 5MG-325MG TAB PO PRN (22:30)
[2017-07-17] MEDS ORDERED: SODIUM CHLORIDE 0.9% 250ML 250 ML ONE (23:07)
[2017-07-18] MEDS: HYDROCODONE/APAP 5MG-325MG TAB PO PRN ×3 (07:59→23:09)
[2017-07-18 08:16] VITALS: BP 169/86
--- NOTE | 2017-07-18 08:23 | Progress Note ---
DATE: July 18, 2017 TIME: 7:50 a.m. OVERNIGHT: Some bleeding of the left knee incision secondary to fall. REVIEW OF SYSTEMS: Denies any dizziness or chest pain. VITAL SIGNS: Reviewed. PHYSICAL EXAMINATION GENERAL: A tired-appearing woman resting in bed. HEENT: Anicteric. CARDIOVASCULAR: Normal S1 and S2. LUNGS: Moderate breath sounds. ABDOMEN: Soft, nontender and nondistended. EXTREMITIES: She has dressings on bilateral knees. She has some dried blood on the left knee dressing. SKIN: Dry. PSYCHIATRIC: Flat affect. NEUROLOGIC: Awake and alert. LABS: Reviewed. MEDICATIONS: Reviewed. ASSESSMENT: An 82-year-old woman. 1. Sepsis. 2. Septic arthritis of the knees. 3. Atrial fibrillation, new onset. 4. Microcytic anemia requiring blood transfusion. 5. Hypocalcemia secondary to dehydration. 6. Hyperbilirubinemia. 7. Overgrown toenails. 8. Overweight state. Body mass index 29.2. 9. 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 10. Constipation. PLAN 1. Continue antibiotics 2. Follow up blood counts. 3. Local wound care and dressing changes. 4. All cultures remain negative. 5. Follow up H and H this morning. 6. Discharge plan to skilled facility pending. Job#: [id number]
[2017-07-18 09:10] VITALS: BP 169/86
[2017-07-18] MEDS: DOCUSATE SODIUM 100 MG CAP PO SCH ×2 (09:10→16:26)
[2017-07-18] MEDS: TIMOLOL MALEATE(OPTHALMIC) 1 EA BTL OU SCH (09:10)
[2017-07-18] MEDS: HYDRALAZINE HCL 25 MG TAB PO SCH ×3 (09:10→21:00)
[2017-07-18] MEDS: POTASSIUM CHLORIDE 20 MEQ TAB CR PO SCH (09:10)
[2017-07-18] MEDS: TIZANIDINE HCL 4 MG TAB PO SCH ×2 (09:10→17:03)
[2017-07-18] MEDS: PANTOPRAZOLE SOD 40 MG TABEC PO SCH (09:10)
[2017-07-18] MEDS: METOPROLOL TARTRATE 25 MG TAB PO SCH ×2 (09:10→21:00)
[2017-07-18] MEDS: SENNOSIDES 8.6 MG TAB PO SCH ×2 (09:10→16:26)
[2017-07-18 09:25] LABS: HEMATOCRIT 25.4 % (34.2-44.1); HEMOGLOBIN 8.9 g/dL (12.0-16.0)
[2017-07-18] MEDS: VANCOMYCIN 1GM/NS 250 ML 250 ML IV SCH (10:00)
[2017-07-18 11:53] VITALS: BP 128/68
[2017-07-18 16:27] VITALS: BP 150/70
[2017-07-18] MEDS: ENOXAPARIN SOD INJ 40 MG/0.4 ML SYR SC SCH (17:03)
[2017-07-18] MEDS: MONTELUKAST SODIUM 10 MG TAB PO SCH (17:03)
[2017-07-18 20:16] VITALS: BP 109/49
[2017-07-18] MEDS: LATANOPROST(OPTH) 2.5 ML BTL OP SCH (21:00)
[2017-07-18] MEDS: PRAVASTATIN 20 MG TAB PO SCH (21:37)
[2017-07-19] MEDS: HYDROCODONE/APAP 5MG-325MG TAB PO PRN ×2 (00:14→08:46)
[2017-07-19 00:53] VITALS: BP 175/74
[2017-07-19 05:24] VITALS: BP 188/83
[2017-07-19] MEDS: HYDRALAZINE HCL 25 MG TAB PO SCH (06:04)
[2017-07-19] MEDS: METOPROLOL TARTRATE 25 MG TAB PO SCH (06:04)
[2017-07-19] MEDS ORDERED: VANCOMYCIN 1GM/NS 250 ML 250 ML IV SCH (07:30)
[2017-07-19 07:58] VITALS: BP 148/83
[2017-07-19 08:46] VITALS: BP 148/83
[2017-07-19] MEDS: SENNOSIDES 8.6 MG TAB PO SCH (08:46)
[2017-07-19] MEDS: PANTOPRAZOLE SOD 40 MG TABEC PO SCH (08:46)
[2017-07-19] MEDS: DOCUSATE SODIUM 100 MG CAP PO SCH (08:46)
[2017-07-19] MEDS: TIZANIDINE HCL 4 MG TAB PO SCH (08:46)
[2017-07-19] MEDS: POTASSIUM CHLORIDE 20 MEQ TAB CR PO SCH (08:46)
[2017-07-19] MEDS: TIMOLOL MALEATE(OPTHALMIC) 1 EA BTL OU SCH (08:46)
[2017-07-19 12:17] VITALS: BP 129/57
== END 2017-07-19 13:51 | DRG 854 ==
LOC: ER 15:14 → UNDOADMIN 23:54 → ERHOLD 23:54 → OR 07-11 02:20 → ERHOLD 07-11 02:23 → ICU 07-11 03:55 → MED/SURG2 07-14 17:02
PROVIDERS: ADMIT Internal Medicine; ATTEND Internal Medicine
PROC: 0S9D3ZX Drainage of Left Knee Joint, Percutaneous Approach, Diagnostic (ICD-10-PCS; 2017-07-10)
PROC: 0S9C3ZX Drainage of Right Knee Joint, Percutaneous Approach, Diagnostic (ICD-10-PCS; 2017-07-10)
PROC: 30250N1 (ICD-10-PCS; principal; 2017-07-13)
PROC: 0SBC0ZZ Excision of Right Knee Joint, Open Approach (ICD-10-PCS; 2017-07-14)
PROC: 0SBD0ZZ Excision of Left Knee Joint, Open Approach (ICD-10-PCS; 2017-07-14)
PROC: 0S9C00Z Drainage of Right Knee Joint with Drainage Device, Open Approach (ICD-10-PCS; 2017-07-14)
PROC: 0S9D00Z Drainage of Left Knee Joint with Drainage Device, Open Approach (ICD-10-PCS; 2017-07-14)
PROC: 02HV33Z Insertion of Infusion Device into Superior Vena Cava, Percutaneous Approach (ICD-10-PCS; 2017-07-16)
PROC: B5181ZA Fluoroscopy of Superior Vena Cava using Low Osmolar Contrast, Guidance (ICD-10-PCS; 2017-07-16)
DX: A41.9 Sepsis, unspecified organism (principal); M00.9 Pyogenic arthritis, unspecified; E87.5 Hyperkalemia; I48.91 Unspecified atrial fibrillation; E83.52 Hypercalcemia; B35.1 Tinea unguium; I10 Essential (primary) hypertension; M19.90 Unspecified osteoarthritis, unspecified site; D50.9 Iron deficiency anemia, unspecified; E80.6 Other disorders of bilirubin metabolism; E86.0 Dehydration; M17.0 Bilateral primary osteoarthritis of knee; E66.3 Overweight; Z68.29 Body mass index [BMI] 29.0-29.9, adult; K59.00 Constipation, unspecified
CPT/HCPCS: 36415; 36569; 71045; 80048; 80053; 80061; 80202; 81001; 82948; 83036; 83735; 84443; 85014; 85018; 85025; 85651; 86850; 86900; 86920; 87040; 87070; 87071; 87075; 87102; 87116; 87205; 87206; 89051; 89060; 93005; 93306; 96361; 96367; 96376; 97139; 99284; J1100; J1650; J1940; J2001; J2250; J2270; J2405; J2543; J3370; J7030; J7050; P9016

== ENCOUNTER 2017-09-17 22:32 | Inpatient (IN) | payer MEDICARE ==
[~2017-09-17] VITALS: Ht 162.6 cm; Wt 99.8 kg
[~2017-09-17 22:32] MED LIST changes: +LATANOPROST2.5 ML OP; +MELOXICAM7.5 MG PO; +SINGULAIR10 MG PO; +TIMOLOL MALEATE10 ML OU; +VITAMIN D35000 UNIT PO; +ZOFRAN ODT4 MG SL
--- OUTSIDE RECORDS SUMMARY | 2017-09-17 22:35 | XMS REPORT | Continuity of Care Document ---
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 No 07/11/17 3:30am If yes, is advance directive on file with [facility]? No 07/11/17 3:30am If not on file with [facility] will patient provide a copy? No 07/11/17 3:30am Do you have a Directive to Physician? No 07/10/17 9:32pm Do you have a Medical Power of Chronic Manager? No 07/10/17 9:32pm Do you have an out of hospital Do Not Resuscitate Order? No 07/10/17 9:32pm Do you have any special needs we should be aware of? No 07/10/17 9:32pm Do you have a support person here with you today? Yes 07/10/17 9:32pm Did patient receive Notice of Privacy Practices? Yes 07/10/17 9:32pm Did patient receive patient rights and responsibilities? Yes 07/10/17 9:32pm Problems Medical Problem Onset Date Status Fever Unknown Leukocytosis Unknown Septic arthritis of knee, left Unknown Medications Current Home Medications Medication Dose Units Route Directions Days Qty Instructions Start Date Cholecalciferol (Vitamin D3) (Vitamin D3) 5,000 Unit Capsule 5,000 Unit Oral Daily Latanoprost 2.5 Ml Drops 2.5 Ml Ophthalmic Bedtime Lisinopril (Prinavil / Zestril) 20 Mg Tablet 20 Mg Oral Daily Meclizine Hcl 12.5 Mg Tablet 12.5 Mg Oral Daily Meloxicam 7.5 Mg Tablet 7.5 Mg Oral Daily 30 Tab Montelukast Sodium (Singulair) 10 Mg Tablet 5 Mg Oral Daily Naproxen Sodium (Aleve) 220 Mg Capsule Mg Oral As Needed Omeprazole 40 Mg Capsule.dr 40 Mg Oral Daily Ondansetron (Zofran Odt) 4 Mg Tab.rapdis 8 Mg Sublingual Every 6 Hours as needed for Nausea Pravastatin Sodium 40 Mg Tablet 40 Mg Oral Bedtime Timolol Maleate 10 Ml Drops 1 Drop Each Eye Daily Tizanidine Hcl 4 Mg Tablet 4 Mg Oral At Bedtime Social History Social History Problem Response Recorded Date/Time Onset Date Status Hx Psychiatric Problems No 07/11/2017 3:30am Not Applicable Not Applicable Hx Eating Disorder No 07/11/2017 3:30am Not Applicable Not Applicable Hx Substance Use Disorder No 07/11/2017 3:30am Not Applicable Not Applicable Hx Depression No 07/11/2017 3:30am Not Applicable Not Applicable Hx Alcohol Use No 07/11/2017 3:30am Not Applicable Not Applicable Hx Substance Use Treatment No 07/11/2017 3:30am Not Applicable Not Applicable Hx Physical Abuse No 07/11/2017 3:30am Not Applicable Not Applicable Smoking Status Start Date Stop Date Former smoker Hospital Discharge Instructions No hospital discharge instruction information available. Plan of Care Discharge Date 07/19/17 1:51pm Disposition TRANSFER DETENTION Prescriptions See Medication Section Functional Status Query Response Date Recorded FUNCTIONAL STATUS . July 14, 2017 1:17pm Assistive Devices Standard Walker July 11, 2017 3:30am Ambulation Ability Moderate Assistance 1 person assist July 11, 2017 3:30am Toileting Ability Maximum Assistance July 17, 2017 6:30pm Allergies, Adverse Reactions, Alerts No known allergies. Immunizations No immunization information available. Vital Signs Acute Vital Signs Vital Response Date/Time Temperature (Fahrenheit) 98.2 degrees F (97.6 - 99.5) 07/19/2017 12:17pm Pulse Pulse Rate (adult) 64 bpm (60 - 90) 07/19/2017 12:17pm Respiratory Rate 18 bpm (12 - 24) 07/19/2017 12:17pm Blood Pressure 129/57 mm Hg 07/19/2017 12:17pm Height 5 ft 4 in 07/10/2017 3:44pm Weight 179.03 lb 07/13/2017 5:41am Body Mass Index 30.7 kg/m^2 07/13/2017 5:41am Results Laboratory Results Test Name Result Units Flags Reference Collection Date/Time Result Date/ Time Comments White Blood Count 13.75 x10e3/uL H 4.8-10.8 07/17/2017 6:50am 2017 7:20am Red Blood Count 2.70 x10e6/uL L 3.6-5.1 07/17/2017 6:50am 07/17/2017 7: 20am Hemoglobin 8.9 g/dL L 12.0-16.0 07/18/2017 9:00am 07/18/2017 9:27am Hematocrit 25.4 % L 34.2-44.1 07/18/2017 9:00am 07/18/2017 9:27am Mean Corpuscular Volume 102.6 fL H 81-99 07/17/2017 6:50am 07/17/2017 7: 20am Mean Corpuscular Hemoglobin 35.6 pg H 28-32 07/17/2017 6:50am 2017 7:20am Mean Corpuscular Hemoglobin Concent 34.7 g/dL 31-35 07/17/2017 6:50am 07/17/2017 7:20am Red Cell Distribution Width 20.3 % H 11.7-14.4 07/17/2017 6:50am 2017 7:20am Platelet Count 237 x10e3/uL 140-360 07/17/2017 6:50am 07/17/2017 7: 20am Neutrophils (%) (Auto) 52.7 % 38.7-80.0 07/17/2017 6:50am 07/17/2017 7: 20am Lymphocytes (%) (Auto) 12.2 % L 18.0-39.1 07/17/2017 6:50am 07/17/2017 7 :20am Monocytes (%) (Auto) 31.8 % H 4.4-11.3 07/17/2017 6:50am 07/17/2017 7: 20am Eosinophils (%) (Auto) 0.8 % 0.0-6.0 07/17/2017 6:50am 07/17/2017 7: 20am Basophils (%) (Auto) 0.6 % 0.0-1.0 07/17/2017 6:50am 07/17/2017 7:20am IM GRANULOCYTES % 1.9 % H 0.0-1.0 07/17/2017 6:50am 07/17/2017 7:20am Neutrophils # (Auto) 7.3 H 2.1-6.9 07/17/2017 6:50am 07/17/2017 7: 20am Lymphocytes # (Auto) 1.7 1.0-3.2 07/17/2017 6:50am 07/17/2017 7:20am Monocytes # (Auto) 4.4 H 0.2-0.8 07/17/2017 6:50am 07/17/2017 7:20am Eosinophils # (Auto) 0.1 0.0-0.4 07/17/2017 6:50am 07/17/2017 7:20am Basophils # (Auto) 0.1 0.0-0.1 07/17/2017 6:50am 07/17/2017 7:20am Absolute Immature Granulocyte (auto 0.26 x10e3/uL H 0-0.1 07/17/2017 6: 50am 07/17/2017 7:20am Differential Total Cells Counted 100 07/17/2017 6:50am 07/17/2017 9 :42am Neutrophils % (Manual) 60 % 40-74 07/17/2017 6:50am 07/17/2017 9:42am Band Neutrophils % 2 % 07/15/2017 7:29am 07/15/2017 11:04am Lymphocytes % (Manual) 11 % L 19-48 07/17/2017 6:50am 07/17/2017 9:42am Monocytes % (Manual) 27 % H 3.4-9.0 07/17/2017 6:50am 07/17/2017 9:42am Eosinophils % (Manual) 2 % 0-7 07/17/2017 6:50am 07/17/2017 9:42am Basophils % (Manual) 3 % H 0-1.5 07/15/2017 7:29am 07/15/2017 11:04am Metamyelocytes % 4 % H 0-0 07/14/2017 5:40am 07/14/2017 7:55am Myelocytes % 2 % H 0-0 07/14/2017 5:40am 07/14/2017 7:55am Promyelocytes % 1 % H 0-0 07/14/2017 5:40am 07/14/2017 7:55am Reactive Lymphocytes 5 07/15/2017 7:29am 07/15/2017 11:04am Platelet Estimate ADEQUATE 07/17/2017 6:50am 07/17/2017 9:42am Platelet Morphology Comment NORMAL 07/17/2017 6:50am 07/17/2017 9: 42am Hypochromasia SLIGHT 07/17/2017 6:50am 07/17/2017 9:42am Anisocytosis SLIGHT 07/17/2017 6:50am 07/17/2017 9:42am Macrocytosis MODERATE 07/15/2017 7:29am 07/15/2017 11:04am Red Cell Morphology Comment NORMAL 07/17/2017 6:50am 07/17/2017 9: 42am Erythrocyte Sedimentation Rate 93 mm/hr H 0-20 07/11/2017 7:05am 2017 7:50am Urine Color ORANGE H YELLOW 07/10/2017 9:28pm 07/10/2017 9:42pm Urine Clarity SL CLOUDY CLEAR 07/10/2017 9:28pm 07/10/2017 9:42pm Urine Specific [place] 1.025 1.010-1.025 07/10/2017 9:28pm 2017 9:42pm Urine pH 5 5 - 7 07/10/2017 9:28pm 07/10/2017 9:42pm Urine Leukocyte Esterase TRACE H NEGATIVE 07/10/2017 9:28pm 2017 9:42pm Urine Nitrite NEGATIVE NEGATIVE 07/10/2017 9:28pm 07/10/2017 9:42pm Urine Protein TRACE H NEGATIVE 07/10/2017 9:28pm 07/10/2017 9:42pm Urine Glucose (UA) NEGATIVE NEGATIVE 07/10/2017 9:pm 07/10/2017 9: 42pm Urine Ketones 2+ H NEGATIVE 07/10/2017 9:28pm 07/10/2017 9:42pm Urine Urobilinogen 8 mg/dL H 0.2 - 1 07/10/2017 9:28pm 07/10/2017 9: 42pm Urine Bilirubin 1+ H NEGATIVE 07/10/2017 9:28pm 07/10/2017 9:42pm Urine Blood TRACE H NEGATIVE 07/10/2017 9:pm 07/10/2017 9:42pm Urine WBC 0-5 /HPF 0-5 07/10/2017 9:28pm 07/10/2017 10:00pm Urine RBC NONE /HPF 0-5 07/10/2017 9:28pm 07/10/2017 10:00pm Urine Bacteria FEW /HPF NONE 07/10/2017 9:28pm 07/10/2017 10:00pm Urine Epithelial Cells RARE /LPF NONE 07/10/2017 9:28pm 07/10/2017 10: 00pm Sodium Level 138 mmol/L 136-145 07/16/2017 8:54am 07/16/2017 9:28am Potassium Level 3.7 mmol/L 3.5-5.1 07/16/2017 8:54am 07/16/2017 9:28am Chloride Level 105 mmol/L 98-107 07/16/2017 8:54am 07/16/2017 9:28am Carbon Dioxide Level 28 mmol/L 07/16/2017 8:54am 07/16/2017 9: 28am Anion Gap 8.7 mmol/L 807/16/2017 8:54am 07/16/2017 9:28am Blood Urea Nitrogen 12 mg/dL 11-0607/16/2017 8:54am 07/16/2017 9:28am Creatinine 0.62 mg/dL 0.57-1.11 07/16/2017 8:54am 07/16/2017 9:28am BUN/Creatinine Ratio 19 6-25 07/16/2017 8:54am 07/16/2017 9:28am Estimat Glomerular Filtration Rate > 60 ML/MIN 60- 07/16/2017 8:54am 9:28am Ranges were taken from the National Kidney Disease Education Program and the National Kid[employer] Foundation literature. Reference ranges: 60 or greater: Normal 16-59 (for 3 consecutive months): Chronic kidney disease 15 or less: Kidney failure Glucose Level 127 mg/dL H 74-118 07/16/2017 8:54am 07/16/2017 9:28am Calcium Level 9.6 mg/dL 8.4-10.2 07/16/2017 8:54am 07/16/2017 9:28am Bedside Glucose 126 mg/dL H 70-120 07/12/2017 4:14pm 07/12/2017 4:26pm Meter ID: [id number] Hemoglobin A1c Percent 4.6 % 4.0-7.0 07/11/2017 5:30am 07/11/2017 6: 52am Magnesium Level 1.3 MG/DL 1.3-2.1 07/11/2017 5:30am 07/11/2017 9:12am Total Bilirubin 2.3 mg/dL H 0.2-1.2 07/11/2017 5:30am 07/11/2017 7:07am Aspartate Amino Transf (AST/SGOT) 14 IU/L 5-34 07/11/2017 5:30am 2017 7:07am Alanine Aminotransferase (ALT/SGPT) 8 IU/L 0-55 07/11/2017 5:30am 07/11 7:07am Total Protein 5.9 g/dL # L 6.5-8.1 07/11/2017 5:30am 07/11/2017 7:07am Albumin 2.6 g/dL L 3.5-5.0 07/11/2017 5:30am 07/11/2017 7:07am Globulin 3.3 g/dL 2.3-3.5 07/11/2017 5:30am 07/11/2017 7:07am Albumin/Globulin Ratio 0.8 0.8-2.0 07/11/2017 5:30am 07/11/2017 7: 07am Alkaline Phosphatase 53 IU/L 40-150 07/11/2017 5:30am 07/11/2017 7: 07am Triglycerides Level 47 MG/DL 0-149 07/11/2017 5:30am 07/11/2017 7:12am Cholesterol Level 138 MD/DL 0-199 07/11/2017 5:30am 07/11/2017 7:12am Less than 200 mg/dL Low Risk 201 - 239 mg/dL Borderline Risk 240 mg/dl and greater High Risk LDL Cholesterol 83 MG/DL 60-130 07/11/2017 5:30am 07/11/2017 7:12am HDL Cholesterol 46 MG/DL 40-60 07/11/2017 5:30am 07/11/2017 7:12am Cholesterol/HDL Ratio 3.0 3.0-3.6 07/11/2017 5:30am 07/11/2017 7: 12am Thyroid Stimulating Hormone (TSH) 0.793 uIU/mL 0.350-4.940 07/11/2017 5: 30am 07/11/2017 9:41am Vancomycin Level Trough 16.1 ug/mL *H 5.0-10.0 07/18/2017 9:00am 2017 9:47am Results called to SENAIT PACHECO RN at 0942 on 07/18/17 by Katharine Méndez. RB OK. Body Fluid Type SYNOVIAL 07/11/2017 4:50am 07/11/2017 10:56am Body Fluid Color YELLOW 07/11/2017 4:50am 07/11/2017 10:56am Body Fluid Appearance CLOUDY 07/11/2017 4:50am 07/11/2017 10:56am Body Fluid WBC 328308 cells/uL 07/11/2017 4:50am 07/11/2017 10:56am Body Fluid RBC 1980 cells/uL 07/11/2017 4:50am 07/11/2017 10:56am Body Fluid Neutrophils 98 % 07/11/2017 4:50am 07/11/2017 11:01am Body Fluid Lymphocytes 5 % 07/10/2017 9:50pm 07/10/2017 11:34pm Body Fluid Monocytes 2 % 07/11/2017 4:50am 07/11/2017 11:01am Body Fluid Total Cells Counted 100 07/11/2017 4:50am 07/11/2017 11: 01am CRYSTALS,BODY FLUID Calcium Pyrophosphate Dihydrate crystals observed by polarized light microscopy. Observed on direct prep (unconcentrated) specimen. Testing performed by: [address] [address] Dir: Clarence Mendez MD 07/11/2017 4:50am 07/16/2017 9:42am Microbiology Results Procedure Source Organism/Result Collection Date/Time Result Date/Time Result Status Blood Culture Blood NO GROWTH AFTER 5 DAYS, FINAL REPORT 07/10/2017 3:58pm 07/15/2017 4:14pm Final Procedures Procedure Status Date Provider(s) Incision and drainage Active 07/11/17 PHIL NEGRETE MD Incision and drainage Completed 07/11/17 PHIL NEGRETE MD Encounters Encounter Location Arrival/Admit Date Discharge/Depart Date Attending Provider Discharged Inpatient [facility] 07/11/17 2:23am 07/19/17 1:51pm CHRISTOPHER SAENZ MD
[2017-09-17] MEDS ORDERED: SODIUM CHLORIDE 0.9% 1000ML 1,000 ML IV STA (22:58)
[2017-09-17 23:38] LABS: HEMATOCRIT 23.2 % (34.2-44.1); HEMOGLOBIN 7.7 g/dL (12.0-16.0); RED BLOOD COUNT 2.37 x10e6/uL (3.6-5.1)
[2017-09-17 23:39] LABS: BASOPHILS % 0.3 % (0.0-1.0); EOSINOPHILS % 0.2 % (0.0-6.0); LYMPHOCYTES % 7.5 % (18.0-39.1); MEAN CORPUSCULAR HEMOGLOBIN 32.5 pg (28-32); MEAN CORPUSCULAR HGB CONC 33.2 g/dL (31-35); MEAN CORPUSCULAR VOLUME 97.9 fL (81-99); MONOCYTES % 18.2 % (4.4-11.3); PLATELET COUNT 189 x10e3/uL (140-360)
[2017-09-17 23:40] LABS: BASOPHILS # (AUTO) 0.1 (0.0-0.1); EOSINOPHILS # (AUTO) 0.1 (0.0-0.4); LYMPHOCYTES # (AUTO) 2.7 (1.0-3.2); MONOCYTES # (AUTO) 4.5 (0.2-0.8); NEUTROPHILS # (AUTO) 24.6 (2.1-6.9)
[2017-09-17 23:44] LABS: INR 1.24; PARTIAL THROMBOPLASTIN TIME 30.2 seconds (23.8-35.5); PROTHROMBIN TIME 14.7 seconds (11.9-14.5)
[2017-09-17 23:58] LABS: ANION GAP 12.5 mmol/L (8-16); CREATININE, SERUM 1.69 mg/dL (0.57-1.11); POTASSIUM 3.5 mmol/L (3.5-5.1)
[2017-09-17 23:59] LABS: ALBUMIN 1.8 g/dL (3.5-5.0); ALBUMIN/GLOBULIN RATIO 0.7 (0.8-2.0); CREATINE KINASE MB 0.7 ng/mL (0-5.0)
[2017-09-18] VITALS (90 sets, daily range): BP systolic 59–126; BP diastolic 27–76
[2017-09-18] MEDS ORDERED: SODIUM CHLORIDE 0.9% 1000ML 1,000 ML IV SCH
--- NOTE | 2017-09-18 00:52 | Diagnostic Imaging Report ---
EXAMINATION: CHEST SINGLE (PORTABLE) INDICATION: Syncope. COMPARISON: 07/10/2017 FINDINGS: TUBES and LINES: Interval placement of right upper extremity PICC line with tip overlying the mid SVC. LUNGS: Lungs are not well inflated. There are bibasilar atelectasis. There is no evidence of pneumonia or pulmonary edema. PLEURA: No pleural effusion or pneumothorax. HEART AND MEDIASTINUM: The cardiomediastinal silhouette is unremarkable. There are atherosclerotic calcifications within the aorta. BONES AND SOFT TISSUES: No acute osseous lesion. Soft tissues are unremarkable. UPPER ABDOMEN: No free air under the diaphragm. IMPRESSION: No acute thoracic abnormality. Signed by: Dr. Kwame Crain M.D. on 09/18/2017 12:49 AM
[2017-09-18] MEDS ORDERED: NOREPINEPHRINE 8 MG/D5W 250 ML 250 ML ONE (01:13)
[2017-09-18] MEDS ORDERED: ALTEPLASE RECOMBINANT 2 MG/2 ML VIAL IV ONE (01:30)
[2017-09-18] MEDS: NOREPINEPHRINE 8 MG/D5W 250 ML 250 ML IV SCH (01:31)
--- NOTE | 2017-09-18 01:44 | Diagnostic Imaging Report ---
Examination: CT head without contrast Clinical Indication: Syncope. Technique: Transaxial noncontrast images from the skull base through the vertex were obtained. Sagittal and coronal reformatted images were done. Comparison: None. Findings: Scalp: No abnormalities. Bones: Intact. No fractures. No blastic or lytic lesions. Brain sulci: Appropriate for patient's age. Ventricles: Normal in size and configuration. No hydrocephalus. . Extra-axial space: No abnormalities. Parenchyma: There are mild confluent areas of low-attenuation within subcortical and periventricular white matter, nonspecific, but could represent microvascular ischemic disease. No masses, hemorrhage, or acute or chronic cortical based vascular insults. Suprasellar region: No abnormalities. Craniocervical junction: The foramen magnum is patent. No Chiari one malformation. Incidental findings: Atherosclerotic calcification of the cavernous and supraclinoid internal carotid and V4 segments of the bilateral vertebral arteries. Impression: 1. No acute intracranial finding. 2. Mild chronic microvascular ischemic change. Signed by: Dr. Samira Smith M.D. on 09/18/2017 1:41 AM
[2017-09-18 01:57] LABS: CLARITY,URINE CLOUDY (CLEAR); COLOR,URINE YELLOW (YELLOW); LEUKOCYTE ESTERASE ,URINE 1+ (NEGATIVE); NITRITE,URINE NEGATIVE (NEGATIVE); PROTEIN,URINE DIPSTICK TRACE (NEGATIVE)
[2017-09-18 01:58] LABS: BACTERIA,URINE MANY /HPF; BILIRUBIN,URINE 1+ (NEGATIVE); EPITHELIAL CELLS,URINE FEW /LPF; KETONES,URINE NEGATIVE (NEGATIVE); RBC,URINE 0-5 /HPF (0-5); URINE UROBILINOGEN 0.2 mg/dL (0.2 - 1); WBC,URINE (MAN) >50 /HPF (0-5)
[2017-09-18] MEDS ORDERED: ONDANSETRON HCL INJ 2 MG/ML VIAL IV PRN (02:00)
[2017-09-18] MEDS: METRONIDAZOLE 500MG/NS 100ML 100 ML IV SCH ×4 (02:10→18:26)
[2017-09-18] MEDS: SODIUM CHLORIDE 0.9% 1000ML 1,000 ML IV SCH ×3 (02:30→16:55)
[2017-09-18] MEDS: VANCOMYCIN 250MG/5ML ORAL SOLN PO SCH ×4 (02:30→17:46)
[2017-09-18 02:42] LABS: BAND NEUTROPHILS % (MANUAL) 4 %; LYMPHOCYTES % (MANUAL) 8 % (19-48); MONOCYTES % (MANUAL) 13 % (3.4-9.0); NEUTROPHILS % (MANUAL) 75 % (40-74); NUCLEATED RED BLOOD CELLS 2
[2017-09-18 02:43] LABS: ANISOCYTOSIS SLIGHT; PLATELET ESTIMATE ADEQUATE; PLATELET MORPHOLOGY COMMENT NORMAL; RBC MORPHOLOGY COMMENT NORMAL
[2017-09-18] MEDS ORDERED: MORPHINE SULFATE INJ 4 MG/ML INJ IV PRN (07:30)
[2017-09-18] MEDS: MORPHINE SULFATE 2 MG/ML SYR IV PRN ×3 (07:38→18:26)
[2017-09-18 07:54] LABS: HEMATOCRIT 29.5 % (34.2-44.1); HEMOGLOBIN 9.6 g/dL (12.0-16.0); MEAN CORPUSCULAR HEMOGLOBIN 32.5 pg (28-32); MEAN CORPUSCULAR HGB CONC 32.5 g/dL (31-35); PLATELET COUNT 224 x10e3/uL (140-360); RED BLOOD COUNT 2.95 x10e6/uL (3.6-5.1); RED CELL DISTRIBUTION WIDTH 22.1 % (11.7-14.4)
[2017-09-18 07:55] LABS: BASOPHILS # (AUTO) 0.3 (0.0-0.1); BASOPHILS % 0.6 % (0.0-1.0); EOSINOPHILS # (AUTO) 0.1 (0.0-0.4); EOSINOPHILS % 0.2 % (0.0-6.0); LYMPHOCYTES # (AUTO) 2.6 (1.0-3.2); LYMPHOCYTES % 4.7 % (18.0-39.1); MONOCYTES # (AUTO) 12.1 (0.2-0.8); MONOCYTES % 22.3 % (4.4-11.3); NEUTROPHILS # (AUTO) 34.1 (2.1-6.9); NEUTROPHILS % 62.7 % (38.7-80.0)
[2017-09-18 07:55] LABS: ALBUMIN 1.8 g/dL (3.5-5.0); ALBUMIN/GLOBULIN RATIO 0.7 (0.8-2.0); ANION GAP 13.6 mmol/L (8-16); CALCIUM 7.9 mg/dL (8.4-10.2); CREATINE KINASE MB 0.9 ng/mL (0-5.0); CREATININE, SERUM 1.54 mg/dL (0.57-1.11); POTASSIUM 3.6 mmol/L (3.5-5.1)
[2017-09-18] MEDS ORDERED: CEFTRIAXONE SOD 1 GM VIAL IV SCH (08:00)
[2017-09-18] MEDS ORDERED: SODIUM CHLORIDE 0.9% 1000ML 1,000 ML IV ONE ×3 (08:00→21:30)
[2017-09-18] MEDS: CHOLESTYRAMINE 4 GM PACKET PO SCH ×4 (08:13→21:00)
[2017-09-18] MEDS ORDERED: ONDANSETRON HCL 4 MG ORAL DISINTEGRATING TAB SL PRN (08:30)
[2017-09-18] MEDS: PANTOPRAZOLE SOD 40 MG TABEC PO SCH (08:31)
[2017-09-18] MEDS: TIZANIDINE HCL 4 MG TAB PO SCH ×2 (08:31→21:00)
[2017-09-18] MEDS: MONTELUKAST SODIUM 10 MG TAB PO SCH (08:31)
[2017-09-18 08:34] LABS: INR 1.24; PARTIAL THROMBOPLASTIN TIME 30.2 seconds (23.8-35.5); PROTHROMBIN TIME 14.7 seconds (11.9-14.5)
--- NOTE | 2017-09-18 08:59 | History and Physical ---
PRIMARY CARE PHYSICIAN: The patient does not recall. CHIEF COMPLAINT: Diarrhea and low blood pressure. HISTORY OF PRESENT ILLNESS: This is an 82-year-old woman with a history of septic arthritis, who was in [facility] for re[facility] needs, now developed C. diff diarrhea, treated and diarrhea worsened. Sent to the hospital and found to be septic and in septic shock. She was admitted for further evaluation and management. The patient complains of abdominal pain at this time. She has a rectal tube in place. PAST MEDICAL HISTORY: Septic arthritis of the knees, hypertension, GERD, C. difficile colitis, sepsis, atrial fibrillation, microcytic anemia requiring blood transfusion, hypocalcemia secondary to dehydration, hyperbilirubinemia, overweight state, severe degenerative joint disease of the knees, constipation. PAST SURGICAL HISTORY: Hysterectomy, bilateral cataract excision. ALLERGIES: PER ELECTRONIC MEDICAL RECORD. FAMILY HISTORY/SOCIAL HISTORY: Patient is . She has 3 children. No alcohol, illicits or cigarettes. MEDICATIONS: Per electronic medical record. REVIEW OF SYSTEMS: Denies any dizziness or chest pain. PHYSICAL EXAMINATION VITAL SIGNS: Blood pressure as low as 79/46, heart rate as high as 112. GENERAL: A tired-appearing woman resting in bed. HEENT: Anicteric. CARDIOVASCULAR: Normal S1 and S2. LUNGS: Moderate breath sounds. ABDOMEN: Soft and nondistended. She has tenderness in the abdomen. Rectal tube in place. EXTREMITIES: No edema or calf tenderness. She has surgical scars on the bilateral knees, which are well-healed. SKIN: Dry. PSYCHIATRIC: Flat affect. NEUROLOGICAL: Alert and appropriate. Moving all extremities. LABS: Reviewed. MEDICATIONS: Reviewed. ASSESSMENT: An 83-year-old woman with: 1. Septic shock. 2. Moderate normocytic anemia. 3. Acute kidney injury. 4. Lactic acidosis. 5. Clostridium difficile colitis which is acute. 6. Atrial fibrillation. 7. Obesity. 8. Urinary tract infection. 9. Physical deconditioning. PLAN 1. Continue with IV fluid bolus and more fluids. Continue with pressors. 2. Continue oral vancomycin and IV Flagyl, and Questran. 3. Use IV ceftriaxone for urinary tract infection and follow up cultures. 4. Add SCDs. Anticoagulation is contraindicated in this patient with recurrent anemia. Use PPI. 5. Disposition. Obtain H and H later today at 2 p.m. Continue pressors. Monitor closely in the ICU. Critical care time more than 35 minutes. Job#: [id number] RI
[2017-09-18] MEDS ORDERED: SODIUM CHLORIDE 0.9% 500ML 500 ML IV ONE (12:30)
[2017-09-18 14:35] LABS: HEMATOCRIT 31.8 % (34.2-44.1); HEMOGLOBIN 10.3 g/dL (12.0-16.0)
[2017-09-18] MEDS ORDERED: AMIODARONE HCL 900 MG in DEXTROSE 5% 500ML 500 ML IV SCH (19:00)
[2017-09-18] MEDS ORDERED: AMIODARONE HCL 150 MG/100 ML BAG IV ONE (19:00)
[2017-09-18] MEDS ORDERED: AMIODARONE HCL 150 MG in DEXTROSE 5% 100ML 100 ML IV ONE (19:30)
[2017-09-18] MEDS ORDERED: AMIODARONE HCL 900 MG in DEXTROSE 5 % 500ML BOTTLE 500 ML IV ONE (19:40)
[2017-09-18] MEDS ORDERED: AMIODARONE HCL 900 MG in DEXTROSE 5 % 500ML BOTTLE 500 ML IV SCH (19:40)
[2017-09-18] MEDS ORDERED: NON-FORMULARY MEDICATION (Pravastatin Sodium 40 MG) PO SCH (21:00)
[2017-09-18] MEDS ORDERED: SIMVASTATIN 20 MG TAB PO SCH (21:00)
[2017-09-18] MEDS: LATANOPROST(OPTH) 2.5 ML BTL OP SCH (21:21)
[2017-09-18 22:03] LABS: ANION GAP 14.9 mmol/L (8-16); CALCIUM 7.1 mg/dL (8.4-10.2); CREATININE, SERUM 2.07 mg/dL (0.57-1.11); POTASSIUM 3.9 mmol/L (3.5-5.1)
[2017-09-19] VITALS (77 sets, daily range): BP systolic 74–151; BP diastolic 23–82
[2017-09-19] MEDS: METRONIDAZOLE 500MG/NS 100ML 100 ML IV SCH ×4 (00:16→17:53)
[2017-09-19] MEDS: VANCOMYCIN 250MG/5ML ORAL SOLN PO SCH ×4 (00:16→17:58)
[2017-09-19] MEDS: SODIUM CHLORIDE 0.9% 1000ML 1,000 ML IV SCH (00:23)
[2017-09-19] MEDS ORDERED: DEXTROSE 5% 1,000 ML IV ONE (01:19)
[2017-09-19] MEDS ORDERED: SODIUM BICARBONATE 8.4% SYRING 150 ML ONE (01:20)
[2017-09-19] MEDS ORDERED: BUMETANIDE INJ 0.25MG/ML 4ML VIAL IV ONE (01:30)
[2017-09-19] MEDS: SODIUM BICARBONATE 8.4% SYRING 150 ML in DEXTROSE 5% 1,000 ML IV SCH ×2 (01:40→17:59)
[2017-09-19] MEDS: MORPHINE SULFATE 2 MG/ML SYR IV PRN (05:06)
[2017-09-19 05:55] LABS: BASOPHILS # (AUTO) 1.8 (0.0-0.1); BASOPHILS % 1.9 % (0.0-1.0); EOSINOPHILS # (AUTO) 0.2 (0.0-0.4); EOSINOPHILS % 0.2 % (0.0-6.0); HEMATOCRIT 33.6 % (34.2-44.1); HEMOGLOBIN 10.8 g/dL (12.0-16.0); LYMPHOCYTES # (AUTO) 15.9 (1.0-3.2); LYMPHOCYTES % 16.9 % (18.0-39.1); MEAN CORPUSCULAR HEMOGLOBIN 32.7 pg (28-32); MEAN CORPUSCULAR HGB CONC 32.1 g/dL (31-35); MEAN CORPUSCULAR VOLUME 101.8 fL (81-99); MONOCYTES # (AUTO) 10.1 (0.2-0.8); MONOCYTES % 10.7 % (4.4-11.3); NEUTROPHILS # (AUTO) 46.5 (2.1-6.9); NEUTROPHILS % 49.8 % (38.7-80.0); PLATELET COUNT 169 x10e3/uL (140-360)
[2017-09-19 06:16] LABS: ALBUMIN 1.5 g/dL (3.5-5.0); ALBUMIN/GLOBULIN RATIO 0.6 (0.8-2.0); ANION GAP 16.8 mmol/L (8-16); CALCIUM 7.1 mg/dL (8.4-10.2); CREATININE, SERUM 2.31 mg/dL (0.57-1.11); POTASSIUM 3.8 mmol/L (3.5-5.1)
[2017-09-19] MEDS ORDERED: SODIUM BICARBONATE 8.4% INJ 50 ML SYR IV STA (06:33)
[2017-09-19] MEDS ORDERED: SODIUM BICARBONATE 8.4% SYRING 100 ML ONE (06:34)
[2017-09-19 06:37] LABS: PHOSPHORUS 4.6 MG/DL (2.3-4.7)
[2017-09-19 06:40] LABS: MAGNESIUM 0.9 MG/DL (1.3-2.1)
[2017-09-19] MEDS ORDERED: MAGNESIUM SULF 1GRAM/DEXTROSE 300 ML IV ONE (06:45)
--- NOTE | 2017-09-19 07:11 | Progress Note ---
DATE: September 19, 2017 OVERNIGHT: Reduced urine output. Worsening renal function. REVIEW OF SYSTEMS: Unobtainable. PHYSICAL EXAMINATION VITAL SIGNS: Have been reviewed. Blood pressure is still in the 80s and 90s. GENERAL: A tired-appearing woman resting in bed. HEENT: Anicteric. CARDIOVASCULAR: Normal S1 and S2. LUNGS: Moderate breath sounds. ABDOMEN: Soft and nondistended. Mild tenderness in the abdomen. EXTREMITIES: No edema. She has SCDs. She has bilateral knee scars. SKIN: Dry. PSYCHIATRIC: Flat affect. NEUROLOGICAL: Awake. LABS: Reviewed. MEDICATIONS: Reviewed. ASSESSMENT: An 83-year-old woman with: 1. Septic shock. 2. Acute kidney injury. 3. Marked leukocytosis. 4. Clostridium difficile colitis. 5. Hyponatremia. 6. Lactic acidosis. 7. Atrial fibrillation. 8. Obesity. 9. Urinary tract infection. 10. Physical deconditioning. 11. Severe hypomagnesemia. 12. Shock liver. PLAN 1. Continue IV fluids and pressors. 2. Dialysis catheter being placed. 3. Line removal needed. 4. Infectious disease consultation. 5. Continue bicarb and follow up labs. Repeat labs. 6. Anemia has remained stable. 7. Severe hypomagnesemia. Will replace and recheck. 8. Acute transaminitis/shock liver. Will rehydrate. 9. Critical care time more than 35 minutes. Job#: [id number] [place]CEDES
[2017-09-19 07:32] LABS: BAND NEUTROPHILS % (MANUAL) 9 %; LYMPHOCYTES % (MANUAL) 14 % (19-48); METAMYELOCYTES % (MANUAL) 7 % (0-0); MONOCYTES % (MANUAL) 15 % (3.4-9.0); MYELOCYTES % (MANUAL) 2 % (0-0); NEUTROPHILS % (MANUAL) 47 % (40-74); NUCLEATED RED BLOOD CELLS 4; PROMYELOCYTES % (MANUAL) 1 % (0-0)
[2017-09-19 07:36] LABS: HYPOCHROMASIA SLIGHT; PLATELET ESTIMATE ADEQUATE; PLATELET MORPHOLOGY COMMENT FEW LARGE; RBC MORPHOLOGY COMMENT ABNORMAL
[2017-09-19 07:37] LABS: ANISOCYTOSIS MODE; POIKILOCYTOSIS SLIGHT
[2017-09-19] MEDS ORDERED: VANCOMYCIN 1GM/NS 250 ML 250 ML IV ONE (08:00)
--- NOTE | 2017-09-19 08:21 | Diagnostic Imaging Report ---
PROCEDURE:X-RAY ABDOMEN - KUB COMPARISON:None. INDICATIONS:CDIFF, DIARRHEA FINDINGS: The bowel gas pattern shows no dilated, air-filled loops of bowel. No mass effect or organomegaly. No abnormal calcifications. Regional skeletal structures are intact with multilevel degenerative disc changes and facet arthropathy of the lumbar spine. CONCLUSION: Nonobstructive bowel gas pattern. Dictated by: Ifeanyi French M.D. on 09/19/2017 at 8:25 Electronically approved by: Ifeanyi French M.D. on 09/19/2017 at 8:25
--- NOTE | 2017-09-19 08:47 | Consultation ---
DATE OF CONSULTATION: September 19, 2017 PULMONARY CONSULTATION Patient of Dr. Julio Webster, Dr. Pizarro. An unfortunate 82-year-old woman with a history of recurrent septic arthritis apparently since 2013. She has had bilateral knee surgeries, but no evidence of prosthesis. She was recently discharged to a senior living after an episode of sepsis related to her joints in June of this year. She has a history of hypertension, atrial fibrillation, joint surgeries in 2004 and 2018 with synovectomies. She has been in the senior living. ALLERGIES: THERE ARE NO KNOWN ALLERGIES. She has had a history of C. diff colitis. MEDICATIONS: Have included lisinopril, meclizine, meloxicam, Timolol, vitamin D, naproxen, latanoprost, Prilosec, Pravachol, . She has had cataract surgery, hysterectomy and knee surgeries. SOCIAL HISTORY: Unknown. PHYSICAL EXAMINATION GENERAL: She is awake, but not answering questions. VITALS: Temperature 97.8, pulse 105 and irregular. HEENT: Head is normocephalic and atraumatic. NECK: Trachea midline. LUNGS: Clear. HEART: Regular rhythm. ABDOMEN: Diffusely tender. EXTREMITIES: There are scars of the knees. IMPRESSION 1. Multiorgan system failure. 2. Gram-positive sepsis, most likely contaminate in this setting. The patient did have a PICC line in the right arm in the senior living. This is to be removed and changed for a central line and tip cultured. Check echocardiogram. Will discontinue cefepime pending discussion with infectious disease. One dose of vancomycin pending discussion with infectious disease. 3. Hyponatremia. 4. Hypomagnesemia. 5. Apparent acute tubular necrosis: Despite fluid boluses, will defer to Dr. Hirsch. The patient remains gravely ill. Will check arterial blood gases. Gram-positive coverage for therapy of C. diff colitis. 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 C. diff was positive on September 18, 2017, and this was confirmed. Will request KUB. There is evidence of anemia and leukemoid reaction with immature forms. The patient's prognosis is poor. I am told by the nurse that the family has requested full code status. Case discussed with Dr. Webster and called to . Thank you for this kind referral. Job#: [id number] [place]
[2017-09-19 08:51] LABS: ABG HCO3 11 mmol/L (23-28); ABG PCO2 25 mmHg (41-51); ABG PH 7.27 (7.31-7.41); ABG PO2 79 mmHg (80-105)
[2017-09-19] MEDS ORDERED: CEFEPIME HCL 1 GM VIAL IV SCH (09:00)
[2017-09-19] MEDS: CHOLESTYRAMINE 4 GM PACKET PO SCH ×4 (09:00→21:00)
--- NOTE | 2017-09-19 09:41 | Consultation ---
DATE OF CONSULTATION: September 19, 2017 REASON FOR CONSULTATION: Atrial fibrillation. HISTORY OF PRESENT ILLNESS: Ms. Gregg is an 82-year-old lady with past medical history listed below is brought in after she lost consciousness. Patient reportedly was lying down and suddenly was unresponsive. There was no chest pain or shortness of breath. Patient was noted to be hypotensive and was given IV fluids and started on pressors, and sent to the intensive care unit. Patient was also noted to be septic and started on antibiotics. Patient had atrial fibrillation with rapid ventricular rate. She was given pressors and then started on amiodarone. Patient's heart rate has come down, but she is still in A-flutter/fib. Patient states she feels very weak and tired. Denies any chest pain. Has some vague abdominal discomfort. No vomiting or diarrhea. ALLERGIES: NO KNOWN DRUG ALLERGIES. MEDICATIONS: See list. PAST MEDICAL HISTORY: History of hypertension, history of anemia, history of hyperlipidemia, history of atrial fibrillation, history of GERD, history of UTIs. PAST SURGICAL HISTORY: History of hysterectomy, history of C-sections. SOCIAL HISTORY: Does not smoke or drink. FAMILY HISTORY: Noncontributory. PHYSICAL EXAMINATION GENERAL: Moderately built and nourished lady awake, lethargic and communicates. VITALS: Heart rate is 118, blood pressure 119/66, respiratory rate 16. HEENT: Atraumatic. NECK: No JVD or bruit, thyromegaly, or lymphadenopathy. CARDIOVASCULAR: First and 2nd heart sounds heard. No murmurs, rubs or gallops are appreciated. CHEST: Decreased air entry at the bases. No adventitious sounds appreciated. ABDOMEN: Soft and nontender. EXTREMITIES: One plus edema. LABS: WBC is 93.7, hemoglobin is 10.8, hematocrit is 33.6, and platelets are 169,000. Sodium is 122, potassium 3.8, chloride 100, bicarb is 9, BUN is 27, creatinine is 2.3. AST is 312, ALT is 151 and alk phos is 88. Lactic acid is 63.6. Troponin 0.021 and 0.018. IMPRESSION 1. Sepsis. 2. Hypotension. 3. Atrial fibrillation. 4. Clostridium difficile. 5. Hyponatremia. 6. Leukocytosis. 7. Renal failure. PLAN 1. Patient is on IV fluids and continue the same. She is also on pressors. 2. Patient has been started on amiodarone. Heart rate fluctuates, but she is still on AFib/flutter. 3. Has deranged LFTs. Unfortunately, we are not able to give her any beta blockers or calcium channel blockers due to hypotension. 4. If her LFTs keep going up, will discontinue amiodarone. 5. Get echocardiogram to assess LV function and valvular function. 6. Correct electrolytes. 7. Further cardiac workup depending on clinical course. As always, I appreciate and thank you very much for this referral. Job#: [id number] [facility]
[2017-09-19] MEDS: MONTELUKAST SODIUM 10 MG TAB PO SCH (09:51)
[2017-09-19] MEDS: TIZANIDINE HCL 4 MG TAB PO SCH ×2 (09:51→21:00)
[2017-09-19] MEDS: PANTOPRAZOLE SOD 40 MG TABEC PO SCH (09:51)
[2017-09-19] MEDS: HEPARIN SOD (PORCINE) 5,000 UNIT/ML VIAL SC SCH ×2 (09:52→21:00)
[2017-09-19] MEDS: AMIODARONE HCL 900 MG in DEXTROSE 5 % 500ML BOTTLE 500 ML IV SCH (12:22)
--- NOTE | 2017-09-19 12:34 | Diagnostic Imaging Report ---
PROCEDURE:KNEE THREE VIEWS BILATERAL COMPARISON:None. INDICATIONS:BILATERAL KNEE PAIN FINDINGS: Right knee: No acute, displaced fracture or dislocation. Advanced tricompartmental degenerative joint disease manifest by subchondral sclerosis, marginal osteophytosis. Medial meniscal calcifications are also noted. Soft tissues are unremarkable. Left knee: No acute, displaced fracture or dislocation. Advanced tricompartmental degenerative joint disease manifest by subchondral sclerosis and marginal osteophytosis. Medial meniscal calcifications are also noted. Soft tissues unremarkable. 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 Dictated by: Ifeanyi French M.D. on 09/19/2017 at 12:37 Electronically approved by: Ifeanyi French M.D. on 09/19/2017 at 12:37
--- NOTE | 2017-09-19 12:53 | Diagnostic Imaging Report ---
PROCEDURE:US RETROPERITONEAL ( KIDNEY ). COMPARISON:None. INDICATIONS:Anuric TECHNIQUE: Collazo-scale and color sonographic images of the bilateral kidneys and bladder where obtained in transverse and longitudinal planes. FINDINGS: Limited examination. The patient is unable to follow breathing instructions. RIGHT KIDNEY: 8.2 cm, cortex of the cm Cysts: None Solid masses: None Stones: None Hydronephrosis: None Echogenicity: Normal LEFT KIDNEY: 9.0 cm, cortex 1.4 cm Cysts: None Solid masses: None Stones: None Hydronephrosis: None Echogenicity: Normal Bladder: Collapsed by a Galeana catheter. Incidental note of a mild amount of ascites in the abdomen. CONCLUSION: No hydronephrosis, stones, or solid renal mass. Dictated by: Mina Che M.D. on 09/19/2017 at 12:56 Electronically approved by: Mina Che M.D. on 09/19/2017 at 12:56
[2017-09-19] MEDS ORDERED: SUCCINYLCHOLINE 200 MG/10 ML SYR ONE (14:34)
[2017-09-19] MEDS ORDERED: ETOMIDATE 2 MG/ML 10 ML INJ IV ONE (14:34)
[2017-09-19] MEDS ORDERED: ROCURONIUM BROMIDE 10 MG/ML 5ML VIAL ONE (14:34)
[2017-09-19] MEDS ORDERED: PHENYLEPHRINE HCL 1% 10 MG/ML VIAL ONE (14:34)
[2017-09-19] MEDS ORDERED: LIDOCAINE HCL 2% LOCAL INJ 5 ML SDV VIAL INJ ONE (14:34)
[2017-09-19] MEDS ORDERED: PROPOFOL IV EMULSION 10 MG/ML 20 ML VIAL ONE (14:34)
[2017-09-19] MEDS ORDERED: MANNITOL 25% 12.5GM/50ML 100 ML ONE (14:39)
[2017-09-19] MEDS ORDERED: SODIUM CHLORIDE 0.9% 1000ML 2,000 ML ONE (14:39)
[2017-09-19] MEDS ORDERED: MIDAZOLAM HCL 2 MG/2 ML VIAL ONE (14:42)
[2017-09-19] MEDS ORDERED: FENTANYL CITRATE/PF 100MCG/2 ML INJ ONE (14:42)
[2017-09-19] MEDS ORDERED: VASOPRESSIN 100 UNIT in DEXTROSE 5% 100ML 100 ML IV PRN (15:00)
--- NOTE | 2017-09-19 15:15 | Consultation ---
DATE OF CONSULTATION: September 19, 2017 History is partly from son, chart and the patient. Renal consulted for acute kidney injury, anuric state. This is an 82-year-old female who was in [facility] and developed C. diff diarrhea, which worsened. Subsequently brought to the hospital. She is currently septic and hypotensive. Alert, complaining of bellyache. She has history of possible septic arthritis of the left knee status post surgery, history of atrial fibrillation, history of abnormal liver function tests, anemia, prior hysterectomy, cataract surgery and hypertension. There is no prior history of any renal insufficiency. Recent labs show white count 93.6 thousand, hemoglobin 10.8, platelets 169. Chemistries show sodium 122, potassium 3.8, bicarbonate 9, BUN 27, creatinine 2.3 with a lactic acid 63.6. Magnesium level 0.9. Albumin of 1.5, AST 312, ALT 151, alkaline phosphatase 88. ALLERGIES: NO APPARENT DRUG ALLERGIES. CURRENT MEDICATIONS: Patient did receive magnesium sulfate once today. She is on D5 bicarbonate drip per my order. She got several liters of normal saline bolus. She received ceftriaxone. She is on simvastatin, which I am going to stop. She is on vancomycin 250 mg p.o. q.6. She is on Zanaflex 4 mg p.o. q.12. She is on pantoprazole 40 mg daily. She is on Xalatan 2.5 mg OP at bedtime. She is on cholestyramine, Questran, 4 grams p.o. q.i.d. She is on heparin 5,000 subcutaneous. She will receive 1 gram of vancomycin IV. She is currently on pressors in the form of norepinephrine. SOCIAL HISTORY: Does not smoke or drink. FAMILY HISTORY: Significant for hypertension. PHYSICAL EXAMINATION GENERAL: Awake, alert, lying supine, complaining of pain in her belly. VITALS: Blood pressure of 115/50. Pulse rate of 105. Afebrile. Oxygen saturation 99% on 2 liters nasal cannula. HEAD AND NECK: No icterus noted. Oral mucosa is dry. Neck veins are flat. LUNGS: Somewhat decreased air entry at the bases. No rales. HEART: S1 and S2 audible. ABDOMEN: Tender with rebound tenderness positive. No deep palpation done. It is distended, though, with flanks full. LOWER EXTREMITIES: No edema. IMPRESSION AND PLAN 1. Acute tubular necrosis. 2. Anuric with severe metabolic acidosis. 3. Hyponatremia. 4. Septic. 5. Hypotensive with severe Clostridium difficile colitis. Discussed with Dr. Julio Webster. Discussed with Dr. Asad Robles. GI to see on a stat basis. Will order CT of the abdomen and pelvis without IV contrast, oral contrast okay. Dr. Barnes of general surgery has been consulted. Discussed with son. All questions answered. Job#: [id number]
[2017-09-19] MEDS ORDERED: HEPARIN SOD (PORCINE) 1000 UNIT/ML SDV ONE (15:43)
--- NOTE | 2017-09-19 17:42 | Consultation ---
DATE OF CONSULTATION: September 19, 2017 REASON FOR CONSULTATION: To evaluate and assist in management of the patient with septic shock, Clostridium difficile colitis, and report of positive blood cultures. Information is gathered from the current medical record. I interviewed the patient and her son at the bedside. The patient is an 82-year-old woman with medical history significant for hypertension, gastroesophageal reflux disease, atrial fibrillation, microcytic anemia requiring blood transfusion, history of obesity and severe degenerative joint disease. The son reports that the patient received antibiotic treatment for what was thought to be bilateral septic arthritis of the knees about 1 month or so ago. According to him, after the antibiotics were discontinued, the patient developed diarrhea. She was diagnosed with Clostridium difficile colitis, which was treated with Flagyl through the PICC line that had been used to treat her septic arthritis for about 14 days. According to him, the diarrhea resolved and the Flagyl was discontinued. A few days after the Flagyl was discontinued the patient redeveloped diarrhea. She developed hypotension and "passed out", for which she was admitted to this facility on September 18, 2017 for further evaluation and treatment. Her admission H\\T\\P indicates that she had a blood pressure of 79/46, heart rate of 112. It is not clear what her temperature was at presentation. In the computer system, the first temperature recorded was 99 degrees. Her CBC at presentation showed a white count of 35.5 on September 17. On September 18, white count had gone up to 54.3 and on September 19 it is up to 93.7 with 9% bands today. She had blood cultures drawn on September 17. One set is reported negative after 24 hours, and another set is reported with gram positive cocci in clusters from the anaerobic bottle. A urine culture from September 17 is growing more than 100,000 colonies of gram-negative bacilli. Her blood cultures were repeated on September 18, reported negative. The patient is receiving metronidazole IV and vancomycin orally. She has received a dose of vancomycin IV. It is not clear whether she also received ceftriaxone. I am told that cefepime was started, but has been discontinued. PAST MEDICAL HISTORY: As reported above. She has had hysterectomy in the past as well as cataract surgery. There is no prior history of renal failure, liver disease, myocardial infarction or CVA. SOCIAL HISTORY: She quit smoking about 40 years ago. No report of alcohol use or abuse. FAMILY HISTORY: Significant for hypertension. ALLERGIES: NO KNOWN DRUG ALLERGIES. MEDICATIONS: She is on IV Flagyl and p.o. vancomycin. The rest of her medications are per the medication admission report. REVIEW OF SYSTEMS: The patient is awake and responsive. Her sensorium is clear. She appears critically ill. She is currently in no acute distress except for abdominal pain. She has no complaint of headache or neck stiffness. No sore throat. No visual or auditory complaints. No chest pain. She has abdominal pain. No report of nausea or vomiting. She has diarrhea. No report of blood in the stools. PHYSICAL EXAMINATION GENERAL: She is an elderly woman. She appears very ill, complaining of abdominal pain, otherwise in no acute distress, but resting quietly in bed. VITAL SIGNS: Maximum temperature recorded was at presentation of 99 degrees Fahrenheit. Her current temperature is 97 degrees. Heart rate 108. Respiratory rate 81. Blood pressure 92-115 systolic. She is on vasopressors. HEENT: She has no gross pallor, no obvious icterus, no oropharyngeal lesions. NECK: Supple. CHEST: Symmetric. LUNGS: Sound clear. HEART: Sounds are irregular without significant murmur. ABDOMEN: Full. Tender to light palpation. Bowel sounds are hypoactive. EXTREMITIES: There is no acute erythema of the extremities. Her PICC line is in place in the right arm. : A Galeana catheter is in place. Her white count is up to 93.7 with 9% bands, 47% neutrophils, 14% lymphocytes, 15% monocytes. Her hemoglobin 10.8, platelet count 169,000. Her serum creatinine 1.5 at presentation, 2.3 currently. BUN 27. Serum sodium 122. Her AST increased from 10 to 312. ALT increased from 8 to 151. Bilirubin and alkaline phosphatase are normal. Her lactic acid is up to 63.6. One of 2 blood cultures from September 19 showed gram-positive cocci in anaerobic bottle. The other set was negative. Repeat blood cultures on September 18 are negative. Her urine culture is showing more than 100,000 colonies of gram-negative rods. I am told that the patient's current Galeana catheter was placed here. A chest x-ray shows no acute thoracic abnormality. Plain films show no free air under the diaphragm. I am told by the nursing staff that a CT scan of the abdomen is being considered. A plain film of the abdomen on September 19, 2017 reports nonobstructive bowel gas pattern. IMPRESSION: This 82-year-old woman in severe sepsis with shock and multiorgan dysfunction present at the time of admission associated with, presumed Clostridium difficile colitis. The patient also has gram-negative urinary tract infection. It appears her blood culture from September 17 was contaminated, except if the isolate turns out to be Staph aureus. Repeat blood cultures from September 18 are already reported negative after 24 hours. RECOMMENDATIONS: I suggest we continue p.o. vancomycin and IV Flagyl. The patient is to be seen by surgery. I have called and spoke to the surgeon and expressed my concern for possible peritonitis, and expressed my concern for possible acute abdomen. I am told by the nursing staff that the patient is to get a CT scan of the abdomen and pelvis, likely without contrast, given her increasing creatinine. Possible acute abdomen/peritonitis. Urgent surgical evaluation. I spoke to the surgeon and expressed my concern about possible acute abdomen. I am told by the nursing staff that the patient is being considered for CT scan of the abdomen and pelvis. We should continue treatment with IV Flagyl and p.o. vancomycin. If peritonitis/acute abdomen/bowel perforation is not found, we may need to consider vancomycin enema as well for possibly a severe Clostridium difficile colitis case. We will add cefepime to her antibiotic regimen to cover the gram-negative urinary tract infection, pending full identification of the urine culture isolate. Monitor temperatures. CBC. Renal function. Monitor clinical response to treatment. The patient's prognosis is guarded given the severe sepsis with shock and multiorgan dysfunction at her age. I have discussed all of these findings, concerns and treatment plan with the patient's son at the bedside as well as with the ICU staff. Total care time, 40 minutes. I am going to call Dr. Webster and discuss the patient with him further. Job#: [id number]
[2017-09-19] MEDS: CEFEPIME HCL 1 GM VIAL IV SCH (17:52)
--- NOTE | 2017-09-19 17:55 | Diagnostic Imaging Report ---
PROCEDURE: CT ABDOMEN AND PELVIS WITHOUT CONTRAST TECHNIQUE: The abdomen and pelvis were scanned utilizing a multidetector helical scanner from the diaphragm to the lesser trochanter without intravenous contrast. Coronal and sagittal multiplanar reformations were obtained. COMPARISON: None. INDICATIONS: CDIFF COLITIS LEUKOCYTES FINDINGS: ABSENCE OF INTRAVENOUS CONTRAST DECREASES SENSITIVITY FOR DETECTION OF FOCAL LESIONS AND VASCULAR PATHOLOGY. LOWER THORAX: Small bilateral pleural effusions. Right basilar atelectasis/consolidation. Mild cardiomegaly. HEPATOBILIARY: No focal hepatic lesions. No biliary ductal dilatation. The gallbladder is distended and there are questionable tiny stones in the dependent portion of gallbladder. SPLEEN: No splenomegaly. PANCREAS: No focal masses or ductal dilatation. ADRENALS: No adrenal nodules. KIDNEYS/URETERS: No hydronephrosis, stones, or solid mass lesions. PELVIC ORGANS/BLADDER: There is a Galeana catheter in the bladder. The uterus is absent. PERITONEUM / RETROPERITONEUM: Moderate ascites. No free intraperitoneal air. LYMPH NODES: No lymphadenopathy. VESSELS: Moderate atherosclerotic ossifications of the aorta and its branches. GI TRACT: There is severe diffuse wall thickening of nearly the entire colon. No evidence of free intraperitoneal air. No bowel obstruction. A rectal tube is present. BONES AND SOFT TISSUES: Mild anasarca. Multilevel degenerative changes of the thoracic and lumbar spine. IMPRESSION: 1. Severe diffuse wall thickening of nearly the entire colon. No evidence of free intraperitoneal air. 2. Moderate ascites. 3. Small bilateral pleural effusions. There is atelectasis or consolidation in the right lung base. Findings were discussed with Dr. Barnes at 5:53 PM on 09/19/2017. Dictated by: Mina Che M.D. on 09/19/2017 at 17:59 Electronically approved by: Mina Che M.D. on 09/19/2017 at 17:59
[2017-09-19] MEDS ORDERED: HEPARIN SOD/SOD CHLORIDE 1,000 ML ONE (18:57)
--- NOTE | 2017-09-19 18:58 | Consultation ---
DATE OF CONSULTATION: September 19, 2017 CHIEF COMPLAINT: Abdominal pain. HISTORY OF PRESENT ILLNESS: The patient is an 82-year-old female with history of C. Diff colitis after treatment for knee septic arthritis several weeks ago. Patient received a full dose of Flagyl with some improvement; however, her symptoms of diarrhea and abdominal pain returned and recurrent C. diff. colitis is diagnosed. Patient developed hypertension requiring 2 vasopressors. She also has been vomiting. PAST MEDICAL HISTORY: As mentioned, positive for septic arthritis of the knee, hypertension. Atrial fibrillation. C. diff. colitis. Degenerative knee arthritis. PAST SURGICAL HISTORY: Positive for hysterectomy. ALLERGIES: NO KNOWN DRUG ALLERGIES. SOCIAL HISTORY: No history of alcohol abuse or smoking. REVIEW OF SYSTEMS: Mainly GI symptoms predominant. PHYSICAL EXAMINATION: VITALS: Heart [id number], blood pressure 91/74. GENERAL: She is awake, responsive and in moderate discomfort. HEENT: Sclerae non-nonicteric. NECK: Supple. LUNGS: Clear. HEART: Tachycardiac. No murmurs. ABDOMEN: Distended with rebound tenderness in all 4 quadrants. EXTREMITIES: With no edema. White cell count 93,000 with hemoglobin of 10.8, platelet count 169,000. Creatinine is 2.31. Abdominal CT showing severe diffuse wall thickening of the entire colon consistent with colitis. There is some ascites. No evidence of intraperitoneal air. ASSESSMENT: Fulminant colitis most likely secondary to Clostridium difficile. Patient is already on vasopressor and received dialysis for metabolic acidosis. PLAN: Recommend to family urgent total colectomy to remove source of the fulminant infection. Attendant risk has been also discussed. Job#: [id number]
[2017-09-19] MEDS ORDERED: SODIUM CHLORIDE 0.9% 250ML 250 ML IV ONE (19:00)
[2017-09-19] MEDS ORDERED: SODIUM BICARBONATE 8.4% SYRING 150 ML in DEXTROSE 5% 1,000 ML IV SCH (19:00)
[2017-09-19] MEDS: NOREPINEPHRINE 8 MG/D5W 250 ML 250 ML IV SCH (19:30)
[2017-09-19] MEDS: LATANOPROST(OPTH) 2.5 ML BTL OP SCH (21:00)
[2017-09-19] MEDS ORDERED: ALBUMIN 25% 12.5GM 100 ML IV ONE (21:21)
[2017-09-19] MEDS ORDERED: THROMBIN FOR SOLN 5,000 UNIT VIAL ONE (22:35)
[2017-09-19] MEDS ORDERED: GELATIN SPONGE SZ 100 ONE (22:35)
[2017-09-20] VITALS (125 sets, daily range): BP systolic 77–148; BP diastolic 34–70
[2017-09-20] MEDS ORDERED: LACTATED RINGER'S 1,000 ML IV SCH
[2017-09-20] MEDS ORDERED: PROPOFOL IV EMULSION 10 MG/ML 50 ML VIAL IV PRN (01:45)
[2017-09-20 04:47] LABS: ABG HCO3 18 mmol/L (23-28); ABG PCO2 28 mmHg (41-51); ABG PH 7.43 (7.31-7.41); ABG PO2 147 mmHg (80-105)
[2017-09-20 05:29] LABS: BASOPHILS # (AUTO) 0.2 (0.0-0.1); BASOPHILS % 0.7 % (0.0-1.0); EOSINOPHILS # (AUTO) 0.1 (0.0-0.4); EOSINOPHILS % 0.1 % (0.0-6.0); HEMATOCRIT 24.6 % (34.2-44.1); HEMOGLOBIN 8.7 g/dL (12.0-16.0); LYMPHOCYTES # (AUTO) 1.9 (1.0-3.2); LYMPHOCYTES % 5.4 % (18.0-39.1); MEAN CORPUSCULAR HEMOGLOBIN 31.8 pg (28-32); MEAN CORPUSCULAR HGB CONC 35.4 g/dL (31-35); MONOCYTES # (AUTO) 4.4 (0.2-0.8); MONOCYTES % 12.6 % (4.4-11.3); NEUTROPHILS # (AUTO) 20.3 (2.1-6.9); NEUTROPHILS % 57.9 % (38.7-80.0); PLATELET COUNT 71 x10e3/uL (140-360); RED BLOOD COUNT 2.74 x10e6/uL (3.6-5.1); RED CELL DISTRIBUTION WIDTH 21.6 % (11.7-14.4)
[2017-09-20 05:35] LABS: MEAN CORPUSCULAR VOLUME 89.8 fL (81-99)
[2017-09-20 05:50] LABS: ALBUMIN 1.6 g/dL (3.5-5.0); ALBUMIN/GLOBULIN RATIO 1.2 (0.8-2.0); ANION GAP 16.9 mmol/L (8-16); CREATININE, SERUM 1.59 mg/dL (0.57-1.11)
[2017-09-20 05:51] LABS: POTASSIUM 2.9 mmol/L (3.5-5.1)
[2017-09-20 05:52] LABS: CALCIUM 6.2 mg/dL (8.4-10.2)
--- NOTE | 2017-09-20 05:55 | Diagnostic Imaging Report ---
EXAMINATION: CHEST SINGLE (PORTABLE) INDICATION: Intubated. COMPARISON: 09/19/2017 FINDINGS: TUBES and LINES: Endotracheal, nasogastric tube and right IJ central line catheters are in good position. LUNGS: Lungs are not well inflated. There are bibasilar atelectasis. There is mild prominence of the central pulmonary vasculature, consistent with pulmonary venous congestion. Interlobular septi thickening compatible with fluid overload PLEURA: Small bilateral pleural effusions right greater than left HEART AND MEDIASTINUM: Cardiac size is mildly enlarged. There are atherosclerotic calcifications within the aorta. BONES AND SOFT TISSUES: No acute osseous lesion. Soft tissues are unremarkable. UPPER ABDOMEN: No free air under the diaphragm. IMPRESSION: Mild fluid overload with bilateral pleural effusions and central vascular congestion. Signed by: Dr. Kwame Crain M.D. on 09/20/2017 5:52 AM
[2017-09-20] MEDS: VANCOMYCIN 250MG/5ML ORAL SOLN PO SCH ×2 (06:00)
[2017-09-20] MEDS ORDERED: SODIUM CHLORIDE 0.9% 1000ML 1,000 ML IV SCH (06:45)
[2017-09-20] MEDS ORDERED: POTASSIUM CHLORIDE 20MEQ/100ML 200 ML IV ONE (06:45)
[2017-09-20] MEDS ORDERED: CALCIUM GLUCONATE 10% INJ 9.3 MEQ in SODIUM CHLORIDE 0.9% 100 ML 100 ML IV ONE (06:45)
[2017-09-20 06:54] LABS: BAND NEUTROPHILS % (MANUAL) 6 %; LYMPHOCYTES % (MANUAL) 13 % (19-48); METAMYELOCYTES % (MANUAL) 5 % (0-0); MONOCYTES % (MANUAL) 11 % (3.4-9.0); MYELOCYTES % (MANUAL) 3 % (0-0); NEUTROPHILS % (MANUAL) 61 % (40-74); PLATELET ESTIMATE SLIGHTLY DECREASED; PLATELET MORPHOLOGY COMMENT FEW GIANT; RBC MORPHOLOGY COMMENT NORMAL
--- NOTE | 2017-09-20 07:19 | Progress Note ---
DATE: September 20, 2017 TIME: 5:50 a.m. OVERNIGHT: Patient underwent total colectomy. She is intubated, remains on amiodarone and pressors and IV fluids. She produced 650 mL of urine. REVIEW OF SYSTEMS: Unobtainable. PHYSICAL EXAMINATION: VITAL SIGNS: Have been reviewed. GENERAL APPEARANCE: Tired-appearing woman resting in bed, intubated. HEENT: Anicteric. Pupils 2 mm, not reactive, but wandering pupils. ET tube is in place. CARDIOVASCULAR: Normal S1 and S2. LUNGS: Moderate breath sounds. ABDOMEN: Soft. She has dressing in place. She has a ROIXE drain in place. She has ostomy in place. EXTREMITIES: SCD bilaterally. SKIN: Dry. PSYCHIATRIC: Unable to assess. NEUROLOGICAL: Not interactive. Moves all extremities. LABS: Reviewed. MEDICATIONS: Reviewed. ASSESSMENT: An 82-year-old woman. 1. Septic shock. 2. Fulminant colitis Clostridium difficile. 3. Acute renal failure, started on dialysis yesterday. 4. Lactic acidemia. 5. Clostridium difficile colitis. 6. Hyponatremia. 7. Atrial fibrillation. 8. Obesity. 9. Urinary tract infection. 10. Physical deconditioning. 11. Severe electrolyte derangement. 12. Shock liver. 13. Moderate anemia, status post 1 unit packed red blood cell transfusion. 14. Gram-negative sagrario urinary tract infection. 15. Acute respiratory failure. 16. Thrombocytopenia. 17. Bilateral pleural effusions. PLAN: 1. Patient is status post total colectomy. 2. Continue vent support. 3. Continue broad-spectrum antibiotics, cefepime, IV Flagyl, and oral vancomycin and Questran. 4. Continue amiodarone drip for atrial fibrillation. 5. Replace potassium this morning. 6. Follow up urine output. 7. Follow up cultures. 8. Replace calcium. 9. Continue IV fluids, normal saline. 10. Follow up labs at 2 p.m. again, follow up labs this morning. 11. Monitor closely in the ICU. Critical care time more than 90 minutes. Job#: [id number]
[2017-09-20] MEDS: METRONIDAZOLE 500MG/NS 100ML 100 ML IV SCH ×6 (07:26→23:36)
[2017-09-20] MEDS ORDERED: SODIUM CHLORIDE 23.4% 38.5 MEQ in STERILE WATER IV SOLN 1,000 ML IV SCH (07:30)
[2017-09-20] MEDS ORDERED: POTASSIUM CHLORIDE 20MEQ/100ML 100 ML IV ONE (07:30)
[2017-09-20] MEDS: MONTELUKAST SODIUM 10 MG TAB PO SCH (08:00)
[2017-09-20] MEDS: TIZANIDINE HCL 4 MG TAB PO SCH ×2 (08:00→20:06)
[2017-09-20] MEDS ORDERED: SODIUM CHLORIDE IV SCH (08:30)
[2017-09-20] MEDS: MIDAZOLAM HCL 25 MG in SODIUM CHLORIDE 0.9% 50ML 45 ML IV PRN ×2 (08:44→14:34)
[2017-09-20] MEDS ORDERED: SODIUM CHLORIDE 0.9% IV ONE (08:45)
[2017-09-20] MEDS ORDERED: CALCIUM CHLORIDE IV ONE (08:45)
[2017-09-20] MEDS ORDERED: MANNITOL 25% 12.5GM/50ML 100 ML ONE (09:39)
[2017-09-20] MEDS ORDERED: SODIUM CHLORIDE 0.9% 1000ML 2,000 ML ONE (09:41)
[2017-09-20] MEDS ORDERED: HEPARIN SOD (PORCINE) 1000 UNIT/ML SDV ONE (09:45)
[2017-09-20] MEDS: SODIUM BICARBONATE 8.4% IV SCH (10:08)
[2017-09-20] MEDS: SODIUM CHLORIDE IV SCH (10:08)
[2017-09-20] MEDS: [UNRECOGNIZED DRUG - OTHER] IV SCH (10:08)
[2017-09-20] MEDS: NOREPINEPHRINE 8 MG/D5W 250 ML 250 ML IV SCH ×2 (10:20→23:38)
--- NOTE | 2017-09-20 10:35 | Progress Note ---
DATE: September 20, 2017 Recent events have been noted. The patient was apparently taken to surgery yesterday, and told that she had a colectomy with end-ileostomy. She remains on a ventilator currently. No overt medication reaction reported. PHYSICAL EXAMINATION VITALS: In the past 24 hours, she had temperatures ranging from 93.2 to 98.5 degrees Fahrenheit. She is on a warming blanket. She remains on vasopressors with blood pressure currently 99/49, pulse rate 91. HEENT: Shows pallor. No obvious icterus. No oropharyngeal lesions. NECK: Supple. CHEST: Symmetric. Breath sounds are coarse in the lung licea. HEART: Sounds are regular. There is no new murmur. ABDOMEN: Soft. Bowel sounds are not heard. A colostomy is in place. EXTREMITIES: No acute erythema of her extremities. Her white count is down to 35.1. Hemoglobin is 8.7 and platelet count 71,000. Also, creatinine is down to 1.5. She was dialyzed yesterday. Her AST is down to 180, ALT down to 129. Lactic acid 77.6. Her urine culture from September 17, 2017, is growing Klebsiella sensitive to all antibiotics tested, except ampicillin and nitrofurantoin. The positive blood culture from September 17, 2017, isolette has not yet been identified. It was one of 2 sets that showed gram-positive cocci in clusters. Repeat blood cultures on September 18, 2017, and September 19, 2017, are reported negative so far. IMPRESSION: She is in severe sepsis with shock associated with Clostridium difficile colitis. She has had exploratory laparotomy with total colectomy and end-ileostomy. She has a urinary tract infection with klebsiella. She has multiorgan dysfunction. She is currently on a ventilator. She was dialyzed yesterday. I suggest continue current antimicrobial therapy. Monitor temperatures, CBC, renal function. Continue ventilator management. Continue supportive care. Job#: [id number] [facility]
[2017-09-20] MEDS: AMIODARONE HCL 900 MG in DEXTROSE 5 % 500ML BOTTLE 500 ML IV SCH (11:24)
[2017-09-20 14:46] LABS: ABG HCO3 22 mmol/L (23-28); ABG PCO2 27 mmHg (41-51); ABG PH 7.51 (7.31-7.41); ABG PO2 103 mmHg (80-105)
[2017-09-20] MEDS: IPRATROPIUM BROMIDE 0.02% 2.5 ML NEB NEB SCH ×2 (15:01→23:02)
[2017-09-20] MEDS: CEFEPIME HCL 1 GM VIAL IV SCH (17:03)
--- NOTE | 2017-09-20 17:08 | Operative Report ---
DATE OF PROCEDURE: September 19, 2017 PREOPERATIVE DIAGNOSIS: Fulminant colitis. POSTOPERATIVE DIAGNOSIS: Fulminant colitis. OPERATIVE PROCEDURES: 1. Total colectomy. 2. End ileostomy. ANESTHESIA: Dr. Giron INDICATIONS: This is 82-year-old female with history of severe colitis with metabolic acidosis requiring dialysis and vasopressor to maintain blood pressure. The patient had a CT scan which showed diffuse colitis involving the entire colon. Patient's family has consented for total colectomy with end ileostomy with all attendant risks discussed. PROCEDURE FINDINGS: Diffuse colitis down to the rectum. DESCRIPTION OF THE PROCEDURE: The patient is brought to the OR, intubated, and the abdomen is prepped with alcohol and draped in sterile fashion. A midline incision is made from the xiphoid down towards the pubic symphysis going through the midline linea alba. Adhesion from prior surgery is encountered and the omental adhesion is taken down with cautery. The colon is noted to be thickened and edematous with approximately 800 mL of ascites intraperitoneally removed. We proceeded to mobilize the area of the ileocecal valve by dividing the white line of Toldt with cautery. The terminal ileum is transected 5 cm from the ileocecal valve with a GINNY stapler and we proceeded to stay close to the mesentery border of the bowel to minimize bleeding using the LigaSure instrument for hemostasis. Dissection is carried towards the hepatic flexure, it is taken down under direct vision to the mid transverse colon where it is divided with a GINNY stapler. The right colon is removed with good hemostasis achieved. We then proceeded to remove the left colon taking care to take down the splenic flexure. There was some bleeding from the spleen which was controlled with a combination of cautery, Gelfoam with thrombin and Surgicel. With the left colon mobilized, dissection is carried towards the sigmoid colon where the GINNY stapler is used to transect it and the left colon is removed. The sigmoid colon is then mobilized down to the mid rectum using the LigaSure instrument to control bleeding. Hemostasis is achieved. The mid rectum is then transected with a TA 60 instrument closing the rectal stump. The sigmoid colon is removed and opened. There is evidence of disease process at the distal end, therefore an extra 5 cm of the rectum is removed with a TLC instrument. At this point, the operative field is irrigated, and with hemostasis achieved, we then proceeded to create an end ileostomy in the right lower quadrant going through the rectus muscle. The loop ileostomy is brought through the right lower quadrant ostomy site and 3-0 silk stitches placed inside the abdominal wall to anchor the loop of bowel from retraction. The abdominal cavity is then closed with running #0 PDS reinforced with #0 Vicryl and skin with staple. The ileostomy is then matured with 3-0 Vicryl everting the to the skin. Appliance is inserted for the ileostomy. Patient then transported intubated to intensive care unit in a guarded condition. ESTIMATED BLOOD LOSS: 200 mL. Job#: [id number]
[2017-09-20 19:17] LABS: BASOPHILS # (AUTO) 0.2 (0.0-0.1); BASOPHILS % 0.6 % (0.0-1.0); EOSINOPHILS % 0.1 % (0.0-6.0); HEMATOCRIT 24.6 % (34.2-44.1); HEMOGLOBIN 8.9 g/dL (12.0-16.0); LYMPHOCYTES % 6.1 % (18.0-39.1); MEAN CORPUSCULAR HEMOGLOBIN 31.6 pg (28-32); MEAN CORPUSCULAR HGB CONC 36.2 g/dL (31-35); MEAN CORPUSCULAR VOLUME 87.2 fL (81-99); MONOCYTES % 15.5 % (4.4-11.3); NEUTROPHILS # (AUTO) 17.6 (2.1-6.9); PLATELET COUNT 79 x10e3/uL (140-360); RED BLOOD COUNT 2.82 x10e6/uL (3.6-5.1)
[2017-09-20 19:28] LABS: ANION GAP 15.7 mmol/L (8-16); CREATININE, SERUM 1.13 mg/dL (0.57-1.11); POTASSIUM 3.7 mmol/L (3.5-5.1)
[2017-09-20 20:11] LABS: BAND NEUTROPHILS % (MANUAL) 6 %; LYMPHOCYTES % (MANUAL) 14 % (19-48); METAMYELOCYTES % (MANUAL) 1 % (0-0); MONOCYTES % (MANUAL) 6 % (3.4-9.0); MYELOCYTES % (MANUAL) 9 % (0-0); NEUTROPHILS % (MANUAL) 64 % (40-74); NUCLEATED RED BLOOD CELLS 4
[2017-09-20 20:12] LABS: ANISOCYTOSIS MODERATE; PLATELET ESTIMATE MODERATELY DECREASED; PLATELET MORPHOLOGY COMMENT FEW LARGE; RBC MORPHOLOGY COMMENT ABNORMAL
[2017-09-20 20:13] LABS: POIKILOCYTOSIS SLIGHT
[2017-09-20] MEDS: LATANOPROST(OPTH) 2.5 ML BTL OP SCH (20:27)
[2017-09-21] VITALS (98 sets, daily range): BP systolic 77–140; BP diastolic 33–73
[2017-09-21 05:13] LABS: BASOPHILS # (AUTO) 0.2 (0.0-0.1); BASOPHILS % 0.6 % (0.0-1.0); EOSINOPHILS % 0.1 % (0.0-6.0); HEMATOCRIT 23.9 % (34.2-44.1); HEMOGLOBIN 8.7 g/dL (12.0-16.0); LYMPHOCYTES # (AUTO) 2.4 (1.0-3.2); LYMPHOCYTES % 7.7 % (18.0-39.1); MEAN CORPUSCULAR HEMOGLOBIN 31.8 pg (28-32); MEAN CORPUSCULAR HGB CONC 36.4 g/dL (31-35); MEAN CORPUSCULAR VOLUME 87.2 fL (81-99); MONOCYTES % 15.8 % (4.4-11.3); NEUTROPHILS # (AUTO) 16.8 (2.1-6.9); NEUTROPHILS % 52.9 % (38.7-80.0); PLATELET COUNT 62 x10e3/uL (140-360); RED BLOOD COUNT 2.74 x10e6/uL (3.6-5.1)
[2017-09-21 05:25] LABS: ANION GAP 12.7 mmol/L (8-16); CALCIUM 7.1 mg/dL (8.4-10.2); CREATININE, SERUM 1.18 mg/dL (0.57-1.11); PHOSPHORUS 2.7 MG/DL (2.3-4.7); POTASSIUM 3.7 mmol/L (3.5-5.1)
[2017-09-21 05:29] LABS: MAGNESIUM 0.9 MG/DL (1.3-2.1)
[2017-09-21] MEDS: AMIODARONE HCL 900 MG in DEXTROSE 5 % 500ML BOTTLE 500 ML IV SCH (05:47)
[2017-09-21] MEDS: METRONIDAZOLE 500MG/NS 100ML 100 ML IV SCH ×4 (05:47→23:57)
--- NOTE | 2017-09-21 06:14 | Diagnostic Imaging Report ---
EXAMINATION: CHEST SINGLE (PORTABLE) INDICATION: Intubation COMPARISON: 09/20/2017 FINDINGS: TUBES and LINES: Endotracheal, nasogastric tube and right IJ central line catheters are stable, in good position. LUNGS: Lungs are not well inflated. There are bibasilar atelectasis. There is mild prominence of the central pulmonary vasculature, consistent with pulmonary venous congestion. Interlobular septi thickening compatible with fluid overload this is stable PLEURA: Small bilateral pleural effusions right greater than left HEART AND MEDIASTINUM: Cardiac size is mildly enlarged. There are atherosclerotic calcifications within the aorta. BONES AND SOFT TISSUES: No acute osseous lesion. Soft tissues are unremarkable. UPPER ABDOMEN: No free air under the diaphragm. IMPRESSION: Stable chest demonstrating mild fluid overload and bilateral pleural effusions. Signed by: Dr. Kwame Crain M.D. on 09/21/2017 6:10 AM
[2017-09-21] MEDS: IPRATROPIUM BROMIDE 0.02% 2.5 ML NEB NEB SCH ×3 (06:28→22:48)
[2017-09-21 06:55] LABS: BAND NEUTROPHILS % (MANUAL) 21 %; BLAST CELLS % MANUAL 19; LYMPHOCYTES % (MANUAL) 11 % (19-48); METAMYELOCYTES % (MANUAL) 2 % (0-0); MONOCYTES % (MANUAL) 5 % (3.4-9.0); NEUTROPHILS % (MANUAL) 42 % (40-74)
[2017-09-21 06:58] LABS: PLATELET ESTIMATE MODERATELY DECREASED; PLATELET MORPHOLOGY COMMENT NORMAL; RBC MORPHOLOGY COMMENT NORMAL
[2017-09-21] MEDS ORDERED: MAGNESIUM SULF 1GRAM/DEXTROSE 300 ML IV ONE (07:00)
[2017-09-21] MEDS ORDERED: SODIUM CHLORIDE 0.9% 1000ML 2,000 ML ONE (08:56)
[2017-09-21] MEDS ORDERED: HEPARIN SOD (PORCINE) 1000 UNIT/ML SDV ONE (08:57)
[2017-09-21] MEDS: MONTELUKAST SODIUM 10 MG TAB PO SCH (09:00)
[2017-09-21] MEDS: TIZANIDINE HCL 4 MG TAB PO SCH ×2 (09:00→20:14)
[2017-09-21] MEDS ORDERED: DEXTROSE 5%/0.9% SOD CHL 1,000 ML IV ONE (09:15)
[2017-09-21] MEDS: PANTOPRAZOLE 40 MG 10ML VIAL IV SCH (09:54)
[2017-09-21] MEDS: FUROSEMIDE INJ 10 MG/ML 2 ML VIAL IV SCH (09:54)
[2017-09-21] MEDS: SODIUM CHLORIDE IV SCH (09:55)
[2017-09-21] MEDS: [UNRECOGNIZED DRUG - OTHER] IV SCH (09:55)
[2017-09-21] MEDS: SODIUM BICARBONATE 8.4% IV SCH (09:55)
[2017-09-21] MEDS ORDERED: VANCOMYCIN 1GM/NS 250 ML 250 ML IV SCH (12:45)
[2017-09-21] MEDS ORDERED: FENTANYL CITRATE INJ 2,000 MCG in SODIUM CHLORIDE 0.9% 250ML 210 ML IV PRN (13:00)
--- NOTE | 2017-09-21 13:38 | Progress Note ---
DATE: September 21, 2017 The patient remains intubated and sedated. No acute distress. No report of diarrhea. No report of vomiting. No overt medication reaction reported. PHYSICAL EXAMINATION VITALS: In the past 24 hours, temperatures ranged from 93.2 to 98.9 degrees Fahrenheit. Her most recent blood pressure 160/41. She remains on vasopressors. HEENT: There is no gross pallor. No obvious icterus. No oropharyngeal lesions. NECK: Supple. CHEST: Symmetric. The lungs are clear. HEART: Sounds are regular. There is no new murmur. ABDOMEN: Soft. There is infrequent bowel sounds. The ostomy is in place. EXTREMITIES: No acute erythema of her extremities. Her creatinine is down to 1.1. Her white count is 31.7, hemoglobin 8.7 and platelet count down to 62,000. Her line tip cultures from September 19, 2017, is growing methicillin-resistant Staph aureus. One of 2 blood cultures from September 17, 2017, grew methicillin-resistant Staph aureus. Urine culture from September 17, 2017, grew Klebsiella pneumoniae. Repeat blood cultures on September 18, 2017, and September 19, 2016, are negative. IMPRESSION: She is on treatment for severe sepsis with shock and multiorgan dysfunction associated with prominent Clostridium difficile colitis. She also has septicemia due to methicillin-resistant Staphylococcus aureus associated with an infected PICC line, which was removed on September 19, 2017. She has a urinary tract infection with klebsiella as well. She is in respiratory failure on a ventilator. Her renal function is improving. She was dialyzed yesterday. I suggest start her on a regular dosing schedule of vancomycin. Check serum levels. Follow up on her cultures. Monitor temperature, CBC, renal function. Continue ventilator management. Continue colostomy care. I have discussed the patient with the ICU staff. Job#: [id number] [place]
[2017-09-21] MEDS: CEFEPIME HCL 1 GM VIAL IV SCH (17:41)
[2017-09-21] MEDS ORDERED: CENTRAL TPN FORMULA 1 BAG IV SCH (20:00)
[2017-09-21] MEDS: LATANOPROST(OPTH) 2.5 ML BTL OP SCH (20:15)
--- NOTE | 2017-09-21 20:54 | Progress Note ---
DATE: September 21, 2017 TIME: 5:40 p.m. OVERNIGHT: No change. Patient remains intubated. REVIEW OF SYSTEMS: Unobtainable. PHYSICAL EXAMINATION: VITAL SIGNS: Have been reviewed. GENERAL APPEARANCE: Tired-appearing woman resting in bed. HEENT: Atraumatic. She has ET tube in place. She has NG tube in place. CARDIOVASCULAR: Normal S1 and S2. LUNGS: Moderate breath sounds. ABDOMEN: Soft. She has dressing in place. She has ROXIE drain in place. There was serosanguineous material. EXTREMITIES: SCD bilaterally. SKIN: Dry. PSYCHIATRIC: Unable to assess. NEUROLOGICAL: Not interactive, sedated. LABS: Reviewed. MEDICATIONS: Reviewed. ASSESSMENT: An 82-year-old woman. 1. Septic shock. 2. Fulminant colitis, likely secondary to Clostridium difficile. 3. Acute renal failure, starting on dialysis. 4. Lactic acidemia. 5. Clostridium difficile colitis. 6. Hyponatremia. 7. Atrial fibrillation. 8. Obesity. 9. Urinary tract infection. 10. Physical deconditioning. 11. Severe electrolyte derangement. 12. Shock liver. 13. Moderate anemia, requiring 1 unit packed red blood cell transfusion. 14. Gram-negative sagrario urinary tract infection. 15. Acute kidney injury. 16. Thrombocytopenia. 17. Bilateral pleural effusions. 18. Methicillin-resistant Staphylococcus aureus bacteremia. 19. Klebsiella pneumoniae urinary tract infection, only resistant to nitrofurantoin. PLAN: 1. Continue IV antibiotics. 2. Continue local wound care. 3. Will need TPN nutritional support. 4. Continue vancomycin, Flagyl, and Questran. 5. Continue rate control in the setting of atrial fibrillation. 6. Chest x-ray is stable with mild bilateral pleural effusions. 7. Continue IV cefepime and IV vancomycin. 8. WBC 31,000, unchanged from yesterday. 9. Hemoglobin is stable at 8.7. 10. Platelet was at 62,000 secondary to sepsis. 11. Severe hypomagnesemia, replace and recheck. 12. Renal function continues to remain stable, GFR is 44 and I's and O's 2563/1405. Critical care time more than 35 minutes. Job#: [id number]
[2017-09-22] VITALS (123 sets, daily range): BP systolic 80–138; BP diastolic 36–82
[2017-09-22] MEDS: CEFEPIME HCL 1 GM VIAL IV SCH (04:04)
[2017-09-22] MEDS: MIDAZOLAM HCL 25 MG in SODIUM CHLORIDE 0.9% 50ML 45 ML IV PRN (04:06)
[2017-09-22 05:22] LABS: HEMOGLOBIN 7.4 g/dL (12.0-16.0); MEAN CORPUSCULAR HEMOGLOBIN 31.4 pg (28-32); MEAN CORPUSCULAR HGB CONC 35.6 g/dL (31-35); MEAN CORPUSCULAR VOLUME 88.1 fL (81-99); RED BLOOD COUNT 2.36 x10e6/uL (3.6-5.1); RED CELL DISTRIBUTION WIDTH 21.7 % (11.7-14.4)
[2017-09-22 05:24] LABS: HEMATOCRIT 20.8 % (34.2-44.1); PLATELET COUNT 40 x10e3/uL (140-360)
[2017-09-22] MEDS: METRONIDAZOLE 500MG/NS 100ML 100 ML IV SCH ×3 (05:32→22:11)
[2017-09-22 05:41] LABS: ALBUMIN 1.2 g/dL (3.5-5.0); ALBUMIN/GLOBULIN RATIO 0.6 (0.8-2.0); ANION GAP 9.7 mmol/L (8-16); CALCIUM 7.2 mg/dL (8.4-10.2); CREATININE, SERUM 0.98 mg/dL (0.57-1.11)
[2017-09-22 05:45] LABS: POTASSIUM 2.7 mmol/L (3.5-5.1)
[2017-09-22] MEDS ORDERED: SODIUM CHLORIDE 0.9% 250ML 250 ML IV ONE (06:30)
[2017-09-22] MEDS ORDERED: FUROSEMIDE INJ 10 MG/ML 2 ML VIAL IV PRN (06:30)
--- NOTE | 2017-09-22 06:50 | Diagnostic Imaging Report ---
EXAMINATION: CHEST SINGLE (PORTABLE) INDICATION: Intubation COMPARISON: 09/21/2017 FINDINGS: TUBES and LINES: Endotracheal, nasogastric tube and right IJ central line catheters are stable. LUNGS: Lungs are not well inflated. There are bibasilar atelectasis. There is mild prominence of the central pulmonary vasculature, consistent with pulmonary venous congestion. PLEURA: Stable bilateral pleural effusions HEART AND MEDIASTINUM: The cardiomediastinal silhouette is unremarkable. There are atherosclerotic calcifications within the aorta. BONES AND SOFT TISSUES: No acute osseous lesion. Soft tissues are unremarkable. UPPER ABDOMEN: No free air under the diaphragm. IMPRESSION: 1. Stable chest. 2. Bibasilar atelectasis and pleural effusions. 3. Tubes and lines are stable. Signed by: Dr. Kwame Crain M.D. on 09/22/2017 6:47 AM
[2017-09-22] MEDS ORDERED: POTASSIUM CHLORIDE 10MEQ/100ML 600 ML IV ONE (07:00)
[2017-09-22] MEDS: IPRATROPIUM BROMIDE 0.02% 2.5 ML NEB NEB SCH ×3 (07:14→23:15)
--- NOTE | 2017-09-22 08:18 | Progress Note ---
DATE: September 22, 2017 TIME: 6:20 a.m. OVERNIGHT: No events. Remains intubated. REVIEW OF SYSTEMS: Unobtainable. PHYSICAL EXAMINATION VITAL SIGNS: Have been reviewed. GENERAL: A tired-appearing woman resting in bed. HEENT: ET tube in place. NG tube in place. CARDIOVASCULAR: Normal S1 and S2. LUNGS: Moderate breath sounds. ABDOMEN: Soft. Dressing in place clean and dry. Ostomy in place. Drain in place. EXTREMITIES: SCDs. SKIN: Dry. Bilateral knee scars. NEUROLOGIC: Not interactive. Sedated. LABS: Reviewed. MEDICATIONS: Reviewed. ASSESSMENT: An 82-year-old woman with: 1. Septic shock. 2. Fulminant colitis secondary to Clostridium difficile. 3. Severe Clostridium difficile colitis. 4. Acute renal failure: Started on dialysis with improvement in renal function. 5. Lactic acidemia. 6. Hyponatremia. 7. Atrial fibrillation. 8. Urinary tract infection. 9. Obesity. 10. Severe electrolyte derangement. 11. Shock liver. 12. Moderate anemia requiring 1 unit of packed red blood cell transfusion. 13. Gram-negative sagrario urinary tract infection. 14. Bilateral pleural effusions. 15. Methicillin-resistant Staphylococcus aureus bacteremia. 16. Klebsiella pneumoniae urinary tract infection. 17. Hyperbilirubinemia. PLAN 1. IV antibiotics per infectious disease. 2. TPN initiated. 3. Give 2 units of packed red blood cell transfusion for worsening anemia. 4. The patient also has worsened platelet counts. Hematology consultation. Multiple medications that could cause thrombocytopenia and also septic shock. 5. Improving leukocytosis. WBC 16,000 and previously 31,000. 6. Worsening platelet count. Hematology consult. 7. Hypokalemia. Replace and recheck. 8. Renal function continues to improve today. GFR is 54. 9. Replace phosphorus. 10. Prognosis is guarded, but the patient has been doing relatively okay. Will continue to monitor closely. 11. Critical care time more than 35 minutes. Obtain labs again this afternoon at 2 p.m. Job#: [id number] [place]
[2017-09-22] MEDS ORDERED: POTASSIUM PHOSPHATE 20 MM in SODIUM CHLORIDE 0.9% 250ML 250 ML IV ONE (08:45)
[2017-09-22] MEDS: TIZANIDINE HCL 4 MG TAB PO SCH ×2 (09:00→20:05)
[2017-09-22] MEDS: PANTOPRAZOLE 40 MG 10ML VIAL IV SCH (09:00)
[2017-09-22] MEDS: MONTELUKAST SODIUM 10 MG TAB PO SCH (09:00)
[2017-09-22] MEDS: AMIODARONE HCL 900 MG in DEXTROSE 5 % 500ML BOTTLE 500 ML IV SCH (12:00)
[2017-09-22 12:28] LABS: BAND NEUTROPHILS % (MANUAL) 4 %; EOSINOPHILS % (MANUAL) 2 % (0-7); LYMPHOCYTES % (MANUAL) 15 % (19-48); METAMYELOCYTES % (MANUAL) 1 % (0-0); MONOCYTES % (MANUAL) 6 % (3.4-9.0); MYELOCYTES % (MANUAL) 1 % (0-0); NEUTROPHILS % (MANUAL) 71 % (40-74); NUCLEATED RED BLOOD CELLS 3
[2017-09-22 12:29] LABS: PLATELET ESTIMATE MARKEDLY DECREASED; PLATELET MORPHOLOGY COMMENT NORMAL; RBC MORPHOLOGY COMMENT ABNORMAL
[2017-09-22 12:32] LABS: ANISOCYTOSIS MODERATE; HYPOCHROMASIA SLIGHT
[2017-09-22 12:35] LABS: TOXIC GRANULATION SLIGHT
[2017-09-22] MEDS: FUROSEMIDE INJ 10 MG/ML 2 ML VIAL IV SCH (12:47)
[2017-09-22] MEDS: DAPTOMYCIN 600 MG in SODIUM CHLORIDE 0.9% 100 ML IV SCH (13:00)
[2017-09-22] MEDS: LEVOFLOXACIN 500MG/D5W 100ML 100 ML IV SCH (13:09)
[2017-09-22] MEDS ORDERED: SODIUM CHLORIDE 0.9% 250ML 250 ML ONE ×2 (13:25→14:24)
[2017-09-22] MEDS ORDERED: MAGNESIUM SULFATE 2GM/50ML 50 ML IV ONE (15:15)
--- NOTE | 2017-09-22 17:15 | Progress Note ---
DATE: September 22, 2017 INFECTIOUS DISEASE PROGRESS NOTE The patient remains bedridden and intubated. She is sedated. No acute distress. No report of vomiting. No report of an adverse medication reaction. In the past 24 hours, her maximum temperature was up to 98.9 degrees Fahrenheit. She has required vasopressor support. She has no gross pallor, no obvious icterus, no oropharyngeal lesions. Her neck is supple. The chest is symmetric. The lungs sound fairly clear to auscultation. Heart sounds are regular without a new murmur. The abdomen is soft. There are infrequent bowel sounds. No acute erythema of her extremities. Her white count is down to 16,000. Differentials are not available. Her hemoglobin is 7.4. Platelet count is down to 40,000. Her serum creatinine is down to 0.9. Her AST is down to 139 from 180, previously was 312. Her ALT is up to 140. Her blood cultures from September 21 and are being processed. Line-tip culture September 19 positive with Methicillin-resistant Staph aureus. September 18 and blood cultures are negative. Urine culture September 17 grew klebsiella. Blood culture 1 of 2 sets September 17 grew Methicillin-resistant Staph aureus. IMPRESSION: She is on treatment for severe sepsis with shock and multiorgan failure. She had line infection with Methicillin-resistant Staphylococcus aureus with associated septicemia. She has urinary tract infection with klebsiella. She has fulminant Clostridium difficile colitis for which she has had a colectomy. Clostridium difficile test was positive on September 18. She has developed progressive thrombocytopenia which is likely multifactorial including the effect of sepsis, the effect of medications. I suggest we discontinue vancomycin and cefepime, both of which may cause thrombocytopenia in some patients. Will start levofloxacin and Cleocin. Evaluate her other medications for possible contributors to thrombocytopenia and replace with appropriate substitutes. Continue Flagyl. Follow up on her cultures. Continue ventilator management. Continue supportive care. I have discussed the patient with the ICU staff. I have discussed the patient with Pharmacy. Total care time 30 minutes. MARKO JULIAN MD Job#: [id number] [place]
[2017-09-22] MEDS ORDERED: CENTRAL TPN FORMULA 1 BAG IV SCH (20:00)
[2017-09-22 20:51] LABS: BASOPHILS # (AUTO) 0.1 (0.0-0.1); BASOPHILS % 0.2 % (0.0-1.0); EOSINOPHILS # (AUTO) 0.1 (0.0-0.4); EOSINOPHILS % 0.2 % (0.0-6.0); HEMATOCRIT 32.2 % (34.2-44.1); HEMOGLOBIN 11.3 g/dL (12.0-16.0); LYMPHOCYTES # (AUTO) 3.4 (1.0-3.2); MEAN CORPUSCULAR HEMOGLOBIN 31.3 pg (28-32); MEAN CORPUSCULAR HGB CONC 35.1 g/dL (31-35); MEAN CORPUSCULAR VOLUME 89.2 fL (81-99); MONOCYTES # (AUTO) 7.7 (0.2-0.8); MONOCYTES % 29.5 % (4.4-11.3); NEUTROPHILS # (AUTO) 11.5 (2.1-6.9); NEUTROPHILS % 43.7 % (38.7-80.0); RED BLOOD COUNT 3.61 x10e6/uL (3.6-5.1); RED CELL DISTRIBUTION WIDTH 20.2 % (11.7-14.4)
[2017-09-22 20:55] LABS: PLATELET COUNT 35 x10e3/uL (140-360)
[2017-09-22 21:07] LABS: ANION GAP 13.7 mmol/L (8-16); BLOOD UREA NITROGEN 20 mg/dL (7-26); BUN/CREATININE RATIO 25 (6-25); CALCIUM 7.6 mg/dL (8.4-10.2); CARBON DIOXIDE 24 mmol/L (22-29); CHLORIDE 100 mmol/L (98-107); EST GLOMERULAR FILTRATION RATE > 60 ML/MIN (60-); GLUCOSE 189 mg/dL (74-118); MAGNESIUM 1.4 MG/DL (1.3-2.1); PHOSPHORUS 2.5 MG/DL (2.3-4.7); POTASSIUM 3.7 mmol/L (3.5-5.1); SODIUM 134 mmol/L (136-145)
[2017-09-22] MEDS: LATANOPROST(OPTH) 2.5 ML BTL OP SCH (21:14)
[2017-09-23] VITALS (106 sets, daily range): BP systolic 84–152; BP diastolic 41–112
[2017-09-23] MEDS: METRONIDAZOLE 500MG/NS 100ML 100 ML IV SCH ×3 (05:20→21:42)
[2017-09-23 06:05] LABS: HEMATOCRIT 28.7 % (34.2-44.1); HEMOGLOBIN 10.4 g/dL (12.0-16.0); MEAN CORPUSCULAR HEMOGLOBIN 31.9 pg (28-32); MEAN CORPUSCULAR HGB CONC 36.2 g/dL (31-35); RED BLOOD COUNT 3.26 x10e6/uL (3.6-5.1); RED CELL DISTRIBUTION WIDTH 20.2 % (11.7-14.4)
[2017-09-23 06:42] LABS: ALANINE AMINOTRANSFERASE 103 IU/L (0-55); ALBUMIN 1.3 g/dL (3.5-5.0); ALBUMIN/GLOBULIN RATIO 0.6 (0.8-2.0); ALKALINE PHOSPHATASE 136 IU/L (40-150); ANION GAP 10.7 mmol/L (8-16); BLOOD UREA NITROGEN 22 mg/dL (7-26); BUN/CREATININE RATIO 30 (6-25); CALCIUM 7.5 mg/dL (8.4-10.2); CARBON DIOXIDE 26 mmol/L (22-29); CHLORIDE 104 mmol/L (98-107); CREATININE, SERUM 0.73 mg/dL (0.57-1.11); EST GLOMERULAR FILTRATION RATE > 60 ML/MIN (60-); GLUCOSE 152 mg/dL (74-118); MAGNESIUM 1.7 MG/DL (1.3-2.1); POTASSIUM 3.7 mmol/L (3.5-5.1); SODIUM 137 mmol/L (136-145)
[2017-09-23 06:43] LABS: AMYLASE 27 U/L (25-125); LIPASE 26 U/L (8-78)
[2017-09-23 06:46] LABS: PLATELET COUNT 26 x10e3/uL (140-360)
--- NOTE | 2017-09-23 06:48 | Diagnostic Imaging Report ---
EXAM: CHEST SINGLE (PORTABLE), AP 1 view INDICATION: Altered mental status COMPARISON: AP view of the chest September 22, 2017 FINDINGS: LINES/TUBES: Stable position of endotracheal tube, nasal/orogastric tube, right internal jugular vein temporary hemodialysis catheter and central line. LUNGS: Bibasilar atelectasis. PLEURA: Stable bilateral pleural effusions. HEART AND MEDIASTINUM: Stable BONES AND SOFT TISSUES: Stable IMPRESSION: No interval change. Signed by: Dr. Luz Khoury M.D. on 09/23/2017 6:45 AM
[2017-09-23] MEDS: IPRATROPIUM BROMIDE 0.02% 2.5 ML NEB NEB SCH ×3 (07:17→19:16)
[2017-09-23] MEDS ORDERED: FUROSEMIDE INJ 10 MG/ML 4 ML VIAL IV NR (08:00)
--- NOTE | 2017-09-23 08:31 | Progress Note ---
DATE: September 23, 2017 TIME: 7:42 a.m. OVERNIGHT: No change. Remains intubated. REVIEW OF SYSTEMS: Unobtainable. PHYSICAL EXAMINATION VITAL SIGNS: Reviewed. Temperature 96.2, pulse 103, blood pressure 115/67. GENERAL: A tired-appearing woman resting in bed. HEENT: NG tube in place. ET tube in place. CARDIOVASCULAR: Normal S1 and S2. LUNGS: Moderate breath sounds. ABDOMEN: Soft. She has an ostomy in place. She has dressings in place. : She has a Galeana in place. EXTREMITIES: SCDs bilaterally. Upper extremities have pitting edema. SKIN: Dry. PSYCHIATRIC: Unable to assess. NEUROLOGIC: Not awake. LABS: Reviewed. MEDICATIONS: Reviewed. ASSESSMENT: An 82-year-old woman. 1. Septic shock. 2. Fulminant colitis secondary to Clostridium difficile. 3. Severe Clostridium difficile colitis. 4. Acute renal failure. 5. Atrial fibrillation. 6. Urinary tract infection. 7. Electrolyte derangement. 8. Obesity. 9. Shock liver. 10. Moderate anemia requiring blood transfusion. 11. Methicillin-resistant Staphylococcus aureus bacteremia. 12. Klebsiella pneumoniae urinary tract infection. 13. Hyperbilirubinemia. 14. Bilateral pleural effusions. PLAN 1. Leukocytosis, improving. 2. Anemia is stable. 3. Worsening platelet counts. Defer to hematology. 4. Renal function continues to improve. GFR is more than 60. 5. Follow up HIT antibody. 6. Chest x-ray shows no interval change. 7. Continue IV Flagyl, IV Levaquin, IV daptomycin. 8. Continue amiodarone. 9. Continue TPN. 10. Critical care time more than 35 minutes. Job#: [id number]
[2017-09-23] MEDS ORDERED: POTASSIUM CHLORIDE 10MEQ/100ML 200 ML IV ONE (08:45)
[2017-09-23] MEDS: TIZANIDINE HCL 4 MG TAB PO SCH ×2 (09:00→20:39)
[2017-09-23] MEDS: PANTOPRAZOLE 40 MG 10ML VIAL IV SCH (09:00)
[2017-09-23] MEDS ORDERED: MAGNESIUM SULFATE 2GM/50ML 50 ML IV ONE (09:00)
[2017-09-23] MEDS: FUROSEMIDE INJ 10 MG/ML 2 ML VIAL IV SCH (09:00)
[2017-09-23] MEDS: MONTELUKAST SODIUM 10 MG TAB PO SCH (09:00)
[2017-09-23 09:35] LABS: BAND NEUTROPHILS % (MANUAL) 5 %; LYMPHOCYTES % (MANUAL) 18 % (19-48); MONOCYTES % (MANUAL) 6 % (3.4-9.0); MYELOCYTES % (MANUAL) 5 % (0-0); NEUTROPHILS % (MANUAL) 63 % (40-74); NUCLEATED RED BLOOD CELLS 2
[2017-09-23 09:37] LABS: ANISOCYTOSIS MODE; PLATELET ESTIMATE MARKEDLY DECREASED; PLATELET MORPHOLOGY COMMENT FEW GIANT; POIKILOCYTOSIS MODERATE; RBC MORPHOLOGY COMMENT ABNORMAL
[2017-09-23 09:38] LABS: POLYCHROMASIA FEW
[2017-09-23] MEDS: AMIODARONE HCL 900 MG in DEXTROSE 5 % 500ML BOTTLE 500 ML IV SCH (12:00)
[2017-09-23] MEDS ORDERED: MAGNESIUM SULFATE 2GM/50ML 50 ML IV SCH ×2 (13:00)
[2017-09-23] MEDS ORDERED: POTASSIUM CHLORIDE 10MEQ/100ML 200 ML IV SCH (13:00)
[2017-09-23] MEDS: DAPTOMYCIN 600 MG in SODIUM CHLORIDE 0.9% 100 ML IV SCH (13:00)
[2017-09-23] MEDS: LEVOFLOXACIN 500MG/D5W 100ML 100 ML IV SCH (13:00)
[2017-09-23] MEDS ORDERED: SODIUM CHLORIDE 0.9% 250ML 250 ML ONE (13:36)
[2017-09-23] MEDS ORDERED: BUMETANIDE INJ 0.25MG/ML 4ML VIAL IV ONE (15:45)
[2017-09-23] MEDS: BUMETANIDE 10 MG in SODIUM CHLORIDE 0.9% 100 ML 60 ML IV SCH (16:00)
--- NOTE | 2017-09-23 17:30 | Progress Note ---
DATE: September 23, 2017 The patient remains bedridden and sedated. No acute distress. No report of significant changes in respiratory secretions. No report of vomiting or diarrhea. No overt medication reaction reported. PHYSICAL EXAMINATION VITAL SIGNS: In the past 24 hours she had temperatures up to 98.7 degrees Fahrenheit. She has required vasopressors before. HEENT: She has no gross pallor. No obvious icterus. No oropharyngeal lesions. NECK: Supple. CHEST: Symmetric. LUNGS: Sound clear. HEART: Sounds are regular. There is no new murmur. ABDOMEN: Soft. Bowel sounds are present. The ostomy is in place. EXTREMITIES: No acute erythema of the extremities. Her white count is 19.1, hemoglobin 10.4, platelet count 26,000. Differential on the white count not available. Her creatinine is 0.7. Her blood cultures from September 21 and are negative. September 19 blood cultures are also negative. September 19 line tip culture grew Methicillin-resistant Staph aureus. September 17 blood cultures grew Methicillin-resistant Staph aureus in 1 of 2 sets. Urine culture September 17 grew klebsiella. IMPRESSION: She is recovering from severe sepsis with shock and multiorgan dysfunction due to septicemia, due to Methicillin-resistant Staph aureus associated with an infected line that has been removed. Also due to urinary tract infection with klebsiella and also due to fulminant Clostridium difficile colitis for which she has had exploratory laparotomy with colectomy and colostomy. Clinically she seems to be slowly recovering. Her renal function has improved. She temporarily had dialysis. She is in respiratory failure on a ventilator. She has thrombocytopenia which maybe multifactorial. I suggest continue current antimicrobial therapy, monitor temperature, CBC and renal function. Recheck urine culture. If negative to discontinue gram negative antimicrobial coverage. Continue ventilator management. Continue supportive care. Job#: [id number] SERJIO
[2017-09-23 17:49] LABS: ABG HCO3 26 mmol/L (23-28); ABG PCO2 34 mmHg (41-51); ABG PO2 137 mmHg (80-105)
[2017-09-23] MEDS ORDERED: CENTRAL TPN FORMULA 1 BAG IV SCH (20:00)
[2017-09-23] MEDS ORDERED: PROPOFOL IV EMULSION 10MG/ML 100 ML IV PRN (20:30)
[2017-09-23] MEDS: LATANOPROST(OPTH) 2.5 ML BTL OP SCH (20:49)
[2017-09-24] VITALS (99 sets, daily range): BP systolic 65–168; BP diastolic 36–117
[2017-09-24] MEDS: BUMETANIDE 10 MG in SODIUM CHLORIDE 0.9% 100 ML 60 ML IV SCH ×3 (01:58→21:34)
[2017-09-24 05:50] LABS: BASOPHILS # (AUTO) 0.1 (0.0-0.1); BASOPHILS % 0.7 % (0.0-1.0); EOSINOPHILS # (AUTO) 0.1 (0.0-0.4); EOSINOPHILS % 0.3 % (0.0-6.0); HEMATOCRIT 30.2 % (34.2-44.1); HEMOGLOBIN 10.8 g/dL (12.0-16.0); LYMPHOCYTES # (AUTO) 2.3 (1.0-3.2); LYMPHOCYTES % 11.4 % (18.0-39.1); MEAN CORPUSCULAR HEMOGLOBIN 32.3 pg (28-32); MEAN CORPUSCULAR HGB CONC 35.8 g/dL (31-35); MEAN CORPUSCULAR VOLUME 90.4 fL (81-99); MONOCYTES % 29.4 % (4.4-11.3); NEUTROPHILS # (AUTO) 9.8 (2.1-6.9); NEUTROPHILS % 47.9 % (38.7-80.0); PLATELET COUNT 58 x10e3/uL (140-360); RED BLOOD COUNT 3.34 x10e6/uL (3.6-5.1); RED CELL DISTRIBUTION WIDTH 20.8 % (11.7-14.4)
[2017-09-24 06:08] LABS: BLOOD UREA NITROGEN 25 mg/dL (7-26); BUN/CREATININE RATIO 36 (6-25); CALCIUM 7.9 mg/dL (8.4-10.2); CARBON DIOXIDE 27 mmol/L (22-29); CHLORIDE 103 mmol/L (98-107); EST GLOMERULAR FILTRATION RATE > 60 ML/MIN (60-); GLUCOSE 153 mg/dL (74-118); SODIUM 139 mmol/L (136-145)
[2017-09-24] MEDS: METRONIDAZOLE 500MG/NS 100ML 100 ML IV SCH ×3 (06:13→22:06)
--- NOTE | 2017-09-24 06:32 | Diagnostic Imaging Report ---
EXAM: CHEST SINGLE (PORTABLE), AP 1 view INDICATION: Intubated COMPARISON: AP view of the chest September 23, 2017 FINDINGS: LINES/TUBES: Stable position endotracheal tube, nasal/orogastric tube, right internal jugular vein temporary hemodialysis catheter and central line. LUNGS: Bibasilar atelectasis. PLEURA: Stable bilateral pleural effusions. HEART AND MEDIASTINUM: Stable BONES AND SOFT TISSUES: Stable IMPRESSION: No interval change Signed by: Dr. Luz Khoury M.D. on 09/24/2017 6:28 AM
[2017-09-24] MEDS: IPRATROPIUM BROMIDE 0.02% 2.5 ML NEB NEB SCH ×3 (07:00→22:25)
[2017-09-24 07:27] LABS: MAGNESIUM 1.6 MG/DL (1.3-2.1); PHOSPHORUS 3.7 MG/DL (2.3-4.7)
[2017-09-24 07:46] LABS: ANISOCYTOSIS SLIGHT; HYPOCHROMASIA SLIGHT; LYMPHOCYTES % (MANUAL) 9 % (19-48); METAMYELOCYTES % (MANUAL) 3 % (0-0); MONOCYTES % (MANUAL) 20 % (3.4-9.0); MYELOCYTES % (MANUAL) 3 % (0-0); NEUTROPHILS % (MANUAL) 65 % (40-74); NUCLEATED RED BLOOD CELLS 10; RBC MORPHOLOGY COMMENT ABNORMAL
[2017-09-24 07:47] LABS: PLATELET ESTIMATE MODERATELY DECREASED; PLATELET MORPHOLOGY COMMENT FEW LARGE
[2017-09-24 08:30] LABS: ALBUMIN 1.6 g/dL (3.5-5.0); BILIRUBIN,DIRECT 1.1 mg/dL (0.0-0.5)
--- NOTE | 2017-09-24 08:34 | Progress Note ---
DATE: September 24, 2017 TIME: 6:30 a.m. OVERNIGHT: The patient is awake. REVIEW OF SYSTEMS: Unable to obtain. PHYSICAL EXAMINATION VITAL SIGNS: Have been reviewed. GENERAL: A tired-appearing woman resting in bed. HEENT: Atraumatic. She has an ET tube in place. NG tube in place. CARDIOVASCULAR: Normal S1 and S2. LUNGS: Moderate breath sounds. ABDOMEN: Soft. She has a dressing in place. She has an ostomy in place. : She has a Galeana in place. EXTREMITIES: SCD bilaterally. SKIN: Dry. PSYCHIATRIC: Unable to assess. NEUROLOGIC: She is awake. LABS: Reviewed. MEDICATIONS: Reviewed. ASSESSMENT: An 82-year-old woman with: 1. Septic shock. 2. Acute respiratory failure. 3. Fulminant colitis secondary to Clostridium difficile. 4. Severe Clostridium difficile colitis. 5. Acute renal failure requiring temporary dialysis. 6. Atrial fibrillation. 7. Urinary tract infection. 8. Electrolyte derangement. 9. Obesity. 10. Shock liver. 11. Moderate anemia requiring blood transfusion. 12. Methicillin-resistant Staphylococcus aureus bacteremia. 13. Klebsiella pneumoniae urinary tract infection. 14. Hyperbilirubinemia. 15. Bilateral pleural effusion. PLAN 1. Patient with good urine output overnight. 2. Patient is awake. She is on breathing trial today. 3. Follow up with antibiotics. 4. HIT. 5. Leukocytosis persistent. 6. Anemia, stable. 7. Platelets improving from 26,000 up to 58,000. 8. Continue TPN. 9. Continue amiodarone. 10. Check LFTs this morning. 11. Critical care time more than 35 minutes. Job#: [id number] [place]
[2017-09-24] MEDS: MONTELUKAST SODIUM 10 MG TAB PO SCH (09:00)
[2017-09-24] MEDS: TIZANIDINE HCL 4 MG TAB PO SCH ×2 (09:00→21:55)
[2017-09-24] MEDS: PANTOPRAZOLE 40 MG 10ML VIAL IV SCH (09:50)
[2017-09-24] MEDS: FUROSEMIDE INJ 10 MG/ML 2 ML VIAL IV SCH (09:50)
[2017-09-24] MEDS: AMIODARONE HCL 900 MG in DEXTROSE 5 % 500ML BOTTLE 500 ML IV SCH ×2 (11:20→21:32)
[2017-09-24] MEDS: LEVOFLOXACIN 500MG/D5W 100ML 100 ML IV SCH (13:30)
[2017-09-24] MEDS: DAPTOMYCIN 600 MG in SODIUM CHLORIDE 0.9% 100 ML IV SCH (14:20)
[2017-09-24 14:33] LABS: ABG HCO3 32 mmol/L (23-28); ABG PCO2 35 mmHg (41-51); ABG PH 7.56 (7.31-7.41); ABG PO2 134 mmHg (80-105)
--- NOTE | 2017-09-24 15:00 | Progress Note ---
DATE: September 24, 2017 The patient is currently on oxygen by nasal cannula. She has been extubated. No report of vomiting. Her colostomy is functioning. No overt medication reaction reported. PHYSICAL EXAMINATION VITAL SIGNS: In the past 24 hours, maximum temperature recorded was 98.5 degrees Fahrenheit. She is hemodynamically stable. She is off vasopressors. Her sedation is also off. HEENT: She has no gross pallor. No obvious icterus. No oropharyngeal lesions. NECK: Supple. CHEST: Symmetric. LUNGS: Breath sounds are coarse in her lung licea. HEART: Sounds are regular. There is no new murmur. ABDOMEN: Soft. Bowel sounds are present. A colostomy is in place. EXTREMITIES: No acute erythema of her extremities. Her white count is 20.4 with 47% neutrophils, 11% lymphocytes, 29% monocytes. On an automated differential there are 65% neutrophils and 20% monocytes on a manual differential. Also creatinine is 0.7. There are no new positive culture reports. IMPRESSION: She is recovering from severe sepsis with shock and multiorgan failure. She has septicemia due to Methicillin-resistant Staph aureus from an infected IV access which was removed. Repeat blood cultures are negative. She has urinary tract infection with klebsiella pneumoniae. She had fulminant Clostridium difficile colitis for which she has had a colectomy. She was in respiratory failure and has been extubated. She is stable from an infectious disease point. I suggest continue current management, monitor temperature, CBC and renal function. Continue to monitor clinical response to treatment. Continue supportive care. Job#: [id number] SERJIO
[2017-09-24] MEDS ORDERED: MAGNESIUM SULFATE 2GM/50ML 50 ML IV ONE (15:45)
[2017-09-24] MEDS ORDERED: CENTRAL TPN FORMULA 1 BAG IV SCH (20:00)
[2017-09-24] MEDS: LATANOPROST(OPTH) 2.5 ML BTL OP SCH (22:04)
[2017-09-25] VITALS (72 sets, daily range): BP systolic 67–153; BP diastolic 35–103
[2017-09-25] MEDS: VANCOMYCIN 250MG/5ML ORAL SOLN PEG SCH (00:27)
[2017-09-25] MEDS ORDERED: SODIUM CHLORIDE 0.9% 1000ML 1,000 ML ONE (00:31)
[2017-09-25] MEDS ORDERED: SODIUM CHLORIDE 0.9% 1000ML 1,000 ML IV SCH (00:39)
[2017-09-25] MEDS: METRONIDAZOLE 500MG/NS 100ML 100 ML IV SCH ×2 (05:30→15:00)
[2017-09-25 05:49] LABS: BASOPHILS # (AUTO) 0.1 (0.0-0.1); BASOPHILS % 0.5 % (0.0-1.0); EOSINOPHILS # (AUTO) 0.1 (0.0-0.4); EOSINOPHILS % 0.3 % (0.0-6.0); HEMATOCRIT 29.4 % (34.2-44.1); HEMOGLOBIN 10.1 g/dL (12.0-16.0); LYMPHOCYTES # (AUTO) 2.1 (1.0-3.2); LYMPHOCYTES % 11.8 % (18.0-39.1); MEAN CORPUSCULAR HEMOGLOBIN 31.6 pg (28-32); MEAN CORPUSCULAR HGB CONC 34.4 g/dL (31-35); MEAN CORPUSCULAR VOLUME 91.9 fL (81-99); MONOCYTES # (AUTO) 4.9 (0.2-0.8); NEUTROPHILS # (AUTO) 9.1 (2.1-6.9); NEUTROPHILS % 51.6 % (38.7-80.0); PLATELET COUNT 50 x10e3/uL (140-360)
[2017-09-25 06:20] LABS: ALANINE AMINOTRANSFERASE 53 IU/L (0-55); ALBUMIN 1.6 g/dL (3.5-5.0); ALBUMIN/GLOBULIN RATIO 0.6 (0.8-2.0); ALKALINE PHOSPHATASE 284 IU/L (40-150); ANION GAP 11.9 mmol/L (8-16); BLOOD UREA NITROGEN 29 mg/dL (7-26); BUN/CREATININE RATIO 41 (6-25); CALCIUM 8.3 mg/dL (8.4-10.2); CARBON DIOXIDE 33 mmol/L (22-29); CHLORIDE 102 mmol/L (98-107); CREATININE, SERUM 0.71 mg/dL (0.57-1.11); EST GLOMERULAR FILTRATION RATE > 60 ML/MIN (60-); GLUCOSE 145 mg/dL (74-118); POTASSIUM 3.9 mmol/L (3.5-5.1); SODIUM 143 mmol/L (136-145)
[2017-09-25 06:21] LABS: MAGNESIUM 1.3 MG/DL (1.3-2.1)
--- NOTE | 2017-09-25 06:54 | Diagnostic Imaging Report ---
EXAM: CHEST SINGLE (PORTABLE), AP 1 view INDICATION: Altered mental status COMPARISON: AP view of the chest September 24, 2017 FINDINGS: LINES/TUBES: Interval removal of endotracheal tube, otherwise stable position of support lines and tubes. LUNGS: Persistent bibasilar atelectasis. PLEURA: Suspected small bilateral pleural effusions. HEART AND MEDIASTINUM: Stable appearance. BONES AND SOFT TISSUES: No acute findings. IMPRESSION: Interval removal of endotracheal tube, otherwise no significant interval change. Signed by: Dr. Luz Khoury M.D. on 09/25/2017 6:50 AM
[2017-09-25] MEDS ORDERED: MAGNESIUM SULFATE 2GM/50ML 50 ML IV ONE ×2 (07:15→08:03)
[2017-09-25] MEDS: IPRATROPIUM BROMIDE 0.02% 2.5 ML NEB NEB SCH ×3 (07:35→22:30)
--- NOTE | 2017-09-25 07:35 | Progress Note ---
DATE: September 25, 2017 TIME: 7:11 a.m. OVERNIGHT: Extubated. REVIEW OF SYSTEMS: Denies any chest pain. Denies any shortness of breath. PHYSICAL EXAMINATION VITAL SIGNS: Reviewed. GENERAL: A tired-appearing woman resting in bed. HEENT: Anicteric. NG tube in place. CARDIOVASCULAR: Normal S1 and S2. LUNGS: She has moderate breath sounds. ABDOMEN: Soft. She has an ostomy in place. She has a dressing in place. EXTREMITIES: SCDs bilaterally. SKIN: Dry. PSYCHIATRIC: Flat affect. NEUROLOGIC: She is awake, alert and appropriate. LABS: Reviewed. MEDICATIONS: Reviewed. ASSESSMENT: An 82-year-old woman with: 1. Septic shock. 2. Acute respiratory failure. 3. Fulminant colitis secondary to Clostridium difficile. 4. Acute renal failure requiring temporary dialysis. 5. History of atrial fibrillation. 6. Urinary tract infection/methicillin-resistant Staphylococcus aureus bacteremia/Klebsiella pneumoniae urinary tract infection. 7. Moderate anemia requiring blood transfusion. 8. Obesity. 9. Shock liver/transaminitis. 10. Electrolyte derangement. 11. Hyperbilirubinemia. 12. Bilateral pleural effusion. PLAN 1. Extubated overnight. Continue nasal cannula oxygen support. 2. Physical therapy consultation today. 3. Monitor closely. 4. Continue TPN. 5. Started on vancomycin overnight. 6. Leukocytosis beginning to improve down to 17,000. 7. Anemia is stable. 8. Platelets are holding in the 50,000. 9. Renal function remains stable. GFR more than 60. I's and O's are 2653/1405. 10. LFTs remain elevated. 11. Follow up HIT antibody. 12. Physical therapy. Critical care time more than 35 minutes. Job#: [id number] [place]
[2017-09-25 08:11] LABS: ANISOCYTOSIS SLIGHT; HYPOCHROMASIA SLIGHT; PLATELET ESTIMATE MODERATELY DECREASED; RBC MORPHOLOGY COMMENT ABNORMAL
[2017-09-25 08:14] LABS: PLATELET MORPHOLOGY COMMENT FEW GIANT
[2017-09-25] MEDS: BUMETANIDE INJ 0.25MG/ML 4ML VIAL IV SCH ×2 (08:45→18:45)
[2017-09-25] MEDS: PANTOPRAZOLE 40 MG 10ML VIAL IV SCH (08:45)
[2017-09-25] MEDS: TIZANIDINE HCL 4 MG TAB PO SCH ×2 (08:46→21:00)
[2017-09-25] MEDS: MONTELUKAST SODIUM 10 MG TAB PO SCH (08:46)
[2017-09-25] MEDS ORDERED: LIDOCAINE HCL 1% LOCAL INJ 20 ML VIAL ONE (12:59)
[2017-09-25] MEDS: DAPTOMYCIN 600 MG in SODIUM CHLORIDE 0.9% 100 ML IV SCH (14:27)
[2017-09-25] MEDS: LEVOFLOXACIN 500MG/D5W 100ML 100 ML IV SCH (15:00)
--- NOTE | 2017-09-25 16:49 | Progress Note ---
DATE: September 25, 2017 The patient is resting in bed. She is elderly and frail. She is awake and responsive. She has no pain complaint. No report of vomiting. No overt medication reaction reported. PHYSICAL EXAMINATION VITALS: In the past 24 hours, she had a temperature up to 99.5 degrees Fahrenheit. She is hemodynamically stable without vasopressors. HEENT: She has no gross pallor. No obvious icterus. No oropharyngeal lesions. NECK: Supple. CHEST: Symmetric. Breath sounds are decreased at the lung bases. HEART: Sounds are regular without a new murmur. ABDOMEN: Soft. Bowel sounds are present. Ostomy is in place. EXTREMITIES: No acute erythema of the extremities. Her white count is 17.5, hemoglobin 10.1 and platelet count up to 50,000. Her creatinine is 0.7. There are no new positive culture reports. IMPRESSION: She is recovering from severe sepsis with shock and multiorgan failure. She has septicemia with methicillin-resistant Staphylococcus aureus. Infected line was removed on September 19, 2017. Repeat blood cultures are negative. She had a urinary tract infection with klebsiella. She had fulminant Clostridium difficile colitis for which she has had exploratory laparotomy with colectomy and colostomy. She was in respiratory failure and has been extubated. Her white count is trending down. She has low-grade fevers. I suggest continue current management. Monitor temperature, CBC and renal function. Continue to monitor clinical response to treatment. I have discussed the patient with the family at the bedside. I have discussed the patient with the nursing staff. Job#: [id number] [place]
[2017-09-25] MEDS ORDERED: BUMETANIDE INJ 0.25 MG/ML 10 ML VIAL ONE (18:42)
[2017-09-26] VITALS (82 sets, daily range): BP systolic 71–184; BP diastolic 39–109
[2017-09-26] MEDS: METRONIDAZOLE 500MG/NS 100ML 100 ML IV SCH ×3 (01:00→20:57)
[2017-09-26] MEDS: BUMETANIDE INJ 0.25MG/ML 4ML VIAL IV SCH ×3 (02:00→20:40)
[2017-09-26] MEDS: AMIODARONE HCL 900 MG in DEXTROSE 5 % 500ML BOTTLE 500 ML IV SCH (02:00)
[2017-09-26] MEDS: CENTRAL TPN FORMULA 1 BAG IV SCH ×2 (02:00→20:41)
[2017-09-26] MEDS ORDERED: AMIODARONE 900MG 500 ML IV ONE (02:28)
[2017-09-26] MEDS ORDERED: SODIUM CHLORIDE 0.9% 1000ML 1,000 ML ONE (02:41)
[2017-09-26] MEDS: LATANOPROST(OPTH) 2.5 ML BTL OP SCH ×2 (03:09→20:40)
[2017-09-26] MEDS: VANCOMYCIN 250MG/5ML ORAL SOLN PEG SCH ×3 (03:10→20:40)
--- NOTE | 2017-09-26 06:20 | Diagnostic Imaging Report ---
EXAM: CHEST SINGLE (PORTABLE), AP 1 view INDICATION: Intubated COMPARISON: AP view of the chest September 25, 2017 FINDINGS: LINES/TUBES: Interval removal of right internal jugular vein temporary hemodialysis catheter. Stable position of central line and nasal/orogastric tube LUNGS: Persistent bibasilar atelectasis PLEURA: Suspected small bilateral pleural effusions HEART AND MEDIASTINUM: Stable BONES AND SOFT TISSUES: No acute findings. IMPRESSION: Interval removal of temporary hemodialysis catheter, otherwise no significant interval change Signed by: Dr. Luz Khoury M.D. on 09/26/2017 6:16 AM
[2017-09-26] MEDS: IPRATROPIUM BROMIDE 0.02% 2.5 ML NEB NEB SCH ×3 (07:14→22:30)
[2017-09-26 07:18] LABS: BASOPHILS # (AUTO) 0.1 (0.0-0.1); BASOPHILS % 0.3 % (0.0-1.0); EOSINOPHILS % 0.2 % (0.0-6.0); HEMATOCRIT 30.5 % (34.2-44.1); HEMOGLOBIN 10.4 g/dL (12.0-16.0); LYMPHOCYTES # (AUTO) 2.1 (1.0-3.2); LYMPHOCYTES % 13.1 % (18.0-39.1); MEAN CORPUSCULAR HEMOGLOBIN 32.7 pg (28-32); MEAN CORPUSCULAR HGB CONC 34.1 g/dL (31-35); MEAN CORPUSCULAR VOLUME 95.9 fL (81-99); MONOCYTES # (AUTO) 5.4 (0.2-0.8); MONOCYTES % 33.4 % (4.4-11.3); NEUTROPHILS # (AUTO) 7.9 (2.1-6.9); NEUTROPHILS % 48.4 % (38.7-80.0); PLATELET COUNT 64 x10e3/uL (140-360); RED BLOOD COUNT 3.18 x10e6/uL (3.6-5.1); RED CELL DISTRIBUTION WIDTH 22.4 % (11.7-14.4)
[2017-09-26 07:28] LABS: ANION GAP 11.2 mmol/L (8-16); BLOOD UREA NITROGEN 29 mg/dL (7-26); BUN/CREATININE RATIO 43 (6-25); CALCIUM 8.3 mg/dL (8.4-10.2); CARBON DIOXIDE 35 mmol/L (22-29); CHLORIDE 103 mmol/L (98-107); CREATININE, SERUM 0.68 mg/dL (0.57-1.11); EST GLOMERULAR FILTRATION RATE > 60 ML/MIN (60-); GLUCOSE 128 mg/dL (74-118); POTASSIUM 4.2 mmol/L (3.5-5.1); SODIUM 145 mmol/L (136-145)
[2017-09-26 08:18] LABS: BAND NEUTROPHILS % (MANUAL) 1 %; LYMPHOCYTES % (MANUAL) 7 % (19-48); MONOCYTES % (MANUAL) 23 % (3.4-9.0); NEUTROPHILS % (MANUAL) 63 % (40-74)
[2017-09-26 08:19] LABS: ANISOCYTOSIS MARKED; HYPOCHROMASIA SLIGHT; PLATELET ESTIMATE MODERATELY DECREASED; PLATELET MORPHOLOGY COMMENT FEW LARGE; RBC MORPHOLOGY COMMENT ABNORMAL
[2017-09-26] MEDS: MONTELUKAST SODIUM 10 MG TAB PO SCH (09:00)
[2017-09-26] MEDS: TIZANIDINE HCL 4 MG TAB PO SCH ×2 (09:00→20:43)
[2017-09-26] MEDS: PANTOPRAZOLE 40 MG 10ML VIAL IV SCH (09:11)
[2017-09-26] MEDS: BALSAM PERU/CASTOR OIL 60 GM OINT...G. TP SCH ×2 (09:55→17:26)
--- NOTE | 2017-09-26 12:46 | Progress Note ---
DATE: September 26, 2017 INFECTIOUS DISEASE PROGRESS NOTE The patient is resting quietly. She is in no acute distress. The nursing staff reports that her colostomy is functioning. No report of vomiting. No overt medication reaction reported. In the past 24 hours, she had temperatures up to 100 degrees Fahrenheit. Most of her temperatures are 99 degrees core. She is hemodynamically stable without vasopressors. There is no gross pallor, no obvious icterus, no oropharyngeal lesions. The neck is supple. The chest is symmetric. The lungs are clear. Heart sounds are regular without a new murmur. The abdomen is soft. Bowel sounds are present. The ostomy is in place. No acute erythema of her extremities. Her white count is down to 16.2, hemoglobin 10.4, platelet count is up to 64,000. Her creatinine is 0.6. Her AST is now to 35, ALT is down to 53. Amylase and lipase last check on September 23 were normal. There are no new positive culture reports. IMPRESSION: She has septicemia and line infection due to Methicillin-resistant Staphylococcus aureus. Repeat blood cultures are negative. She has urinary tract infection with klebsiella. She has fulminant Clostridium difficile colitis for which she has had exploratory laparotomy with colectomy and colostomy. She has low-grade fevers. Her white count is trending down. I suggest continue current antimicrobial therapy. I am told that she is receiving vancomycin enema. She is on IV Flagyl. She is on Levaquin for urinary tract infection. She is on daptomycin for her bloodstream infection with Methicillin-resistant Staph aureus. Monitor temperature, CBC, renal function. Continue supportive care. Reculture her fully if the low-grade temperatures persist. Job#: [id number] EV
[2017-09-26] MEDS: LEVOFLOXACIN 500MG/D5W 100ML 100 ML IV SCH (13:10)
[2017-09-26] MEDS: DAPTOMYCIN 600 MG in SODIUM CHLORIDE 0.9% 100 ML IV SCH (14:03)
[2017-09-27] VITALS (44 sets, daily range): BP systolic 91–154; BP diastolic 50–94
[2017-09-27 05:23] LABS: BASOPHILS # (AUTO) 0.1 (0.0-0.1); BASOPHILS % 0.5 % (0.0-1.0); EOSINOPHILS # (AUTO) 0.1 (0.0-0.4); EOSINOPHILS % 0.5 % (0.0-6.0); HEMATOCRIT 28.7 % (34.2-44.1); HEMOGLOBIN 9.4 g/dL (12.0-16.0); LYMPHOCYTES % 15.8 % (18.0-39.1); MEAN CORPUSCULAR HEMOGLOBIN 32.1 pg (28-32); MEAN CORPUSCULAR HGB CONC 32.8 g/dL (31-35); MONOCYTES # (AUTO) 4.2 (0.2-0.8); MONOCYTES % 32.5 % (4.4-11.3); NEUTROPHILS # (AUTO) 6.1 (2.1-6.9); NEUTROPHILS % 47.8 % (38.7-80.0); PLATELET COUNT 76 x10e3/uL (140-360); RED BLOOD COUNT 2.93 x10e6/uL (3.6-5.1); RED CELL DISTRIBUTION WIDTH 22.1 % (11.7-14.4)
[2017-09-27] MEDS: METRONIDAZOLE 500MG/NS 100ML 100 ML IV SCH ×3 (05:34→21:40)
[2017-09-27 05:52] LABS: ALANINE AMINOTRANSFERASE 29 IU/L (0-55); ALBUMIN 1.6 g/dL (3.5-5.0); ALBUMIN/GLOBULIN RATIO 0.6 (0.8-2.0); ALKALINE PHOSPHATASE 232 IU/L (40-150); ANION GAP 8.5 mmol/L (8-16); BLOOD UREA NITROGEN 34 mg/dL (7-26); BUN/CREATININE RATIO 49 (6-25); CALCIUM 8.3 mg/dL (8.4-10.2); CARBON DIOXIDE 34 mmol/L (22-29); CHLORIDE 107 mmol/L (98-107); CREATININE, SERUM 0.69 mg/dL (0.57-1.11); EST GLOMERULAR FILTRATION RATE > 60 ML/MIN (60-); GLUCOSE 117 mg/dL (74-118); POTASSIUM 4.5 mmol/L (3.5-5.1); SODIUM 145 mmol/L (136-145)
[2017-09-27 06:57] LABS: BAND NEUTROPHILS % (MANUAL) 1 %; LYMPHOCYTES % (MANUAL) 14 % (19-48); MONOCYTES % (MANUAL) 28 % (3.4-9.0); NEUTROPHILS % (MANUAL) 56 % (40-74)
[2017-09-27 06:58] LABS: ANISOCYTOSIS SLIGHT; PLATELET ESTIMATE MARKEDLY DECREASED; PLATELET MORPHOLOGY COMMENT NORMAL; RBC MORPHOLOGY COMMENT ABNORMAL
[2017-09-27] MEDS: IPRATROPIUM BROMIDE 0.02% 2.5 ML NEB NEB SCH ×3 (07:05→23:20)
[2017-09-27] MEDS: TIZANIDINE HCL 4 MG TAB PO SCH ×2 (08:02→21:40)
[2017-09-27] MEDS: MONTELUKAST SODIUM 10 MG TAB PO SCH (08:02)
[2017-09-27] MEDS: VANCOMYCIN 250MG/5ML ORAL SOLN PEG SCH (08:02)
[2017-09-27] MEDS ORDERED: METOPROLOL TARTRATE INJ 1 MG/ML VIAL IV PRN (08:30)
[2017-09-27] MEDS ORDERED: LISINOPRIL 20 MG TAB PO SCH (09:00)
[2017-09-27] MEDS: AMIODARONE HCL 200 MG TAB PO SCH (09:41)
[2017-09-27] MEDS ORDERED: BUMETANIDE INJ 0.25 MG/ML 10 ML VIAL IV SCH (10:00)
[2017-09-27] MEDS: PANTOPRAZOLE 40 MG 10ML VIAL IV SCH (10:46)
[2017-09-27] MEDS: BALSAM PERU/CASTOR OIL 60 GM OINT...G. TP SCH ×2 (10:46→17:01)
[2017-09-27] MEDS: DAPTOMYCIN 600 MG in SODIUM CHLORIDE 0.9% 100 ML IV SCH (13:13)
[2017-09-27] MEDS: LEVOFLOXACIN 500MG/D5W 100ML 100 ML IV SCH (13:13)
--- NOTE | 2017-09-27 15:15 | Progress Note ---
DATE: September 27, 2017 The patient is alert and responsive. She has no pain complaints. She is not coughing. No dyspnea at rest. No report of vomiting or diarrhea. No overt medication reaction reported. PHYSICAL EXAMINATION VITALS: In the past 24 hours, she had temperatures up to 99.7 degrees Fahrenheit. She is hemodynamically stable. No vasopressors. HEENT: She has no gross pallor. No obvious icterus. No oropharyngeal lesions. NECK: Supple. CHEST: Symmetric. The lungs are clear. HEART: Sounds are regular. There is no new murmur. ABDOMEN: Soft. Bowel sounds are present. The ostomy is in place. EXTREMITIES: No acute erythema of her extremities. Her white count is down to 12.8 with 28% monocytes, 14% lymphocytes, 56% neutrophils. Hemoglobin 9.4 and platelet count is up to 76,000. Her serum creatinine is 0.6. There are no new positive culture reports. IMPRESSION: She is recovering from severe sepsis with shock and multiorgan failure. Her renal function has recovered. She is extubated. She had fulminant Clostridium difficile colitis for which she has had exploratory laparotomy with colectomy and colostomy. She has septicemia with methicillin-resistant Staphylococcus aureus and infected line was removed on September 19, 2017. Repeat blood cultures are negative. She has a urinary tract infection with klebsiella. Clinically, she is improving. Her white count is trending down. I suggest continue current management. Monitor temperature, CBC and renal function. Continue wound care and response to treatment. Continue supportive care. Job#: [id number] [place]
[2017-09-27] MEDS ORDERED: CENTRAL TPN FORMULA 1 BAG IV SCH (20:00)
[2017-09-27] MEDS: LATANOPROST(OPTH) 2.5 ML BTL OP SCH (21:40)
[2017-09-27] MEDS: VANCOMYCIN 250MG/5ML ORAL SOLN PO SCH (21:40)
[2017-09-28] VITALS (8 sets, daily range): BP systolic 90–126; BP diastolic 51–75
[2017-09-28] MEDS: METRONIDAZOLE 500MG/NS 100ML 100 ML IV SCH ×3 (06:02→22:53)
[2017-09-28] MEDS: IPRATROPIUM BROMIDE 0.02% 2.5 ML NEB NEB SCH ×3 (06:40→23:00)
[2017-09-28 07:07] LABS: ALANINE AMINOTRANSFERASE 24 IU/L (0-55); ALBUMIN 1.6 g/dL (3.5-5.0); ALBUMIN/GLOBULIN RATIO 0.6 (0.8-2.0); ALKALINE PHOSPHATASE 224 IU/L (40-150); ANION GAP 9.6 mmol/L (8-16); BLOOD UREA NITROGEN 33 mg/dL (7-26); BUN/CREATININE RATIO 46 (6-25); CALCIUM 8.5 mg/dL (8.4-10.2); CARBON DIOXIDE 28 mmol/L (22-29); CHLORIDE 110 mmol/L (98-107); CREATININE, SERUM 0.71 mg/dL (0.57-1.11); EST GLOMERULAR FILTRATION RATE > 60 ML/MIN (60-); GLUCOSE 114 mg/dL (74-118); MAGNESIUM 1.6 MG/DL (1.3-2.1); POTASSIUM 4.6 mmol/L (3.5-5.1); SODIUM 143 mmol/L (136-145)
[2017-09-28] MEDS: BALSAM PERU/CASTOR OIL 60 GM OINT...G. TP SCH ×2 (09:43→16:44)
[2017-09-28] MEDS: TIZANIDINE HCL 4 MG TAB PO SCH ×2 (09:44→21:36)
[2017-09-28] MEDS: MONTELUKAST SODIUM 10 MG TAB PO SCH (09:44)
[2017-09-28] MEDS: PANTOPRAZOLE 40 MG 10ML VIAL IV SCH (09:44)
[2017-09-28] MEDS: VANCOMYCIN 250MG/5ML ORAL SOLN PO SCH ×2 (09:44→21:35)
[2017-09-28] MEDS: FUROSEMIDE INJ 10 MG/ML 4 ML VIAL IV SCH (09:44)
[2017-09-28] MEDS: AMIODARONE HCL 200 MG TAB PO SCH (09:44)
[2017-09-28] MEDS: LEVOFLOXACIN 500MG/D5W 100ML 100 ML IV SCH (14:04)
[2017-09-28] MEDS: DAPTOMYCIN 600 MG in SODIUM CHLORIDE 0.9% 100 ML IV SCH (14:22)
[2017-09-28] MEDS: CENTRAL TPN FORMULA 1 BAG IV SCH (21:10)
[2017-09-28] MEDS: LATANOPROST(OPTH) 2.5 ML BTL OP SCH (21:35)
[2017-09-29 01:32] VITALS: BP 102/50
[2017-09-29 04:00] VITALS: BP 115/55
[2017-09-29] MEDS: METRONIDAZOLE 500MG/NS 100ML 100 ML IV SCH ×2 (05:52→22:15)
[2017-09-29 06:29] LABS: BASOPHILS # (AUTO) 0.1 (0.0-0.1); BASOPHILS % 0.4 % (0.0-1.0); EOSINOPHILS % 0.3 % (0.0-6.0); HEMATOCRIT 28.4 % (34.2-44.1); HEMOGLOBIN 9.3 g/dL (12.0-16.0); LYMPHOCYTES % 14.7 % (18.0-39.1); MEAN CORPUSCULAR HGB CONC 32.7 g/dL (31-35); MEAN CORPUSCULAR VOLUME 97.6 fL (81-99); MONOCYTES # (AUTO) 3.8 (0.2-0.8); MONOCYTES % 27.7 % (4.4-11.3); NEUTROPHILS # (AUTO) 7.5 (2.1-6.9); NEUTROPHILS % 54.6 % (38.7-80.0); PLATELET COUNT 81 x10e3/uL (140-360); RED BLOOD COUNT 2.91 x10e6/uL (3.6-5.1); RED CELL DISTRIBUTION WIDTH 22.2 % (11.7-14.4)
[2017-09-29 06:47] LABS: ANION GAP 7.7 mmol/L (8-16); BLOOD UREA NITROGEN 30 mg/dL (7-26); BUN/CREATININE RATIO 42 (6-25); CALCIUM 8.6 mg/dL (8.4-10.2); CARBON DIOXIDE 26 mmol/L (22-29); CHLORIDE 108 mmol/L (98-107); CREATININE, SERUM 0.72 mg/dL (0.57-1.11); EST GLOMERULAR FILTRATION RATE > 60 ML/MIN (60-); GLUCOSE 110 mg/dL (74-118); POTASSIUM 4.7 mmol/L (3.5-5.1); SODIUM 137 mmol/L (136-145)
[2017-09-29] MEDS: IPRATROPIUM BROMIDE 0.02% 2.5 ML NEB NEB SCH ×3 (07:45→22:30)
[2017-09-29 07:52] LABS: EOSINOPHILS % (MANUAL) 1 % (0-7); LYMPHOCYTES % (MANUAL) 17 % (19-48); MONOCYTES % (MANUAL) 19 % (3.4-9.0); MYELOCYTES % (MANUAL) 1 % (0-0); NEUTROPHILS % (MANUAL) 62 % (40-74)
[2017-09-29 07:53] LABS: ANISOCYTOSIS SLIGHT; HYPOCHROMASIA SLIGHT; PLATELET ESTIMATE SLIGHTLY DECREASED; PLATELET MORPHOLOGY COMMENT FEW LARGE; RBC MORPHOLOGY COMMENT NORMAL
--- NOTE | 2017-09-29 08:06 | Progress Note ---
DATE: September 26, 2017 TIME: 7:30 a.m. OVERNIGHT: No events. REVIEW OF SYSTEMS: Unreliable. PHYSICAL EXAMINATION VITAL SIGNS: Reviewed. GENERAL: A tired-appearing woman resting in bed. HEENT: Anicteric. CARDIOVASCULAR: Normal S1 and S2. LUNGS: Moderate breath sounds. ABDOMEN: Soft. She has ostomy in place. She has dressing in place. EXTREMITIES: SCDs bilaterally. SKIN: Dry. PSYCHIATRIC: Flat affect. LABS: Reviewed. MEDICATIONS: Reviewed. ASSESSMENT: An 82-year-old woman with: 1. Septic shock. 2. Acute respiratory failure. 3. Fulminant colitis with Clostridium difficile infection. 4. Acute renal failure requiring temporary dialysis. 5. History of atrial fibrillation. 6. Urinary tract infection/methicillin-resistant Staphylococcus aureus bacteremia/Klebsiella pneumoniae urinary tract infection. 7. Moderate anemia requiring blood transfusion. 8. Obesity. 9. Shock liver and transaminitis. 10. Electrolyte derangement. 11. Bilateral pleural effusion. 12. Hyperbilirubinemia. PLAN 1. Continue supportive care. 2. The patient is doing well on nasal cannula oxygen. 3. Continue antibiotics and antimicrobial therapy. 4. Urine output remains good. 5. Continue nutritional support with TPN. Job#: [id number] MERCEDES
--- NOTE | 2017-09-29 08:07 | Progress Note ---
DATE: September 27, 2017 TIME: 7:30 a.m. OVERNIGHT: No events. REVIEW OF SYSTEMS: Unreliable. PHYSICAL EXAMINATION VITAL SIGNS: Reviewed. GENERAL: A tired-appearing woman resting in bed. HEENT: Anicteric. CARDIOVASCULAR: Normal S1 and S2. LUNGS: Moderate breath sounds. ABDOMEN: Soft. She has an ostomy in place. She has a dressing in place. EXTREMITIES: No edema. SKIN: Dry. PSYCHIATRIC: Flat affect. LABS: Reviewed. MEDICATIONS: Reviewed. ASSESSMENT: An 82-year-old woman. 1. Septic shock. 2. Acute respiratory failure. 3. Fulminant colitis/Clostridium difficile. 4. Acute renal failure requiring temporary dialysis. 5. History of atrial fibrillation. 6. Urinary tract infection/methicillin-resistant Staphylococcus aureus bacteremia/Klebsiella pneumoniae urinary tract infection. 7. Moderate anemia requiring blood transfusion. 8. Obesity. 9. Shock liver/transaminitis. 10. Electrolyte derangement. 11. Hyperbilirubinemia. 12. Bilateral pleural effusion. PLAN 1. Improving leukocytosis down to 12,000 from 16,000. 2. Improving platelets up to 76,000 from 64,000. 3. Total bilirubin is 1.9. 4. Continue antimicrobials. 5. Continue supportive care. 6. Continue TPN. 7. Skilled facility placement evaluation. Job#: [id number]
--- NOTE | 2017-09-29 08:09 | Progress Note ---
DATE: September 28, 2017 TIME: 7:30 a.m. OVERNIGHT: No events. REVIEW OF SYSTEMS: Unreliable. PHYSICAL EXAMINATION VITAL SIGNS: Reviewed. GENERAL: A tired-appearing woman resting in bed. HEENT: Anicteric. CARDIOVASCULAR: Normal S1 and S2. LUNGS: Moderate breath sounds. ABDOMEN: Soft. She has an ostomy in place. She has dressing in place. EXTREMITIES: No edema. SKIN: Dry. PSYCHIATRIC: Flat affect. LABS: Reviewed. MEDICATIONS: Reviewed. ASSESSMENT: An 82-year-old woman with: 1. Septic shock. 2. Acute respiratory failure. 3. Fulminant colitis secondary to Clostridium difficile. 4. Acute renal failure requiring temporary dialysis. 5. History of atrial fibrillation. 6. Urinary tract infection/methicillin-resistant Staphylococcus aureus bacteremia/Klebsiella pneumoniae urinary tract infection. PLAN 1. Continue antimicrobial. 2. Check labs in the morning. 3. Physical therapy consultation. 4. Skilled facility placement pending. Job#: [id number] MD
--- NOTE | 2017-09-29 08:14 | Progress Note ---
DATE: September 29, 2017 TIME: 7:24 a.m. OVERNIGHT: The patient had green material in the ostomy, and she had some green, gel-like material vaginal discharge. REVIEW OF SYSTEMS: Denies any chest pain or shortness of breath. PHYSICAL EXAMINATION VITAL SIGNS: Reviewed. GENERAL: A tired-appearing woman resting in bed. HEENT: Anicteric. CARDIOVASCULAR: Normal S1 and S2. LUNGS: Moderate breath sounds. ABDOMEN: Soft. She has an ostomy in place and a dressing in place. Green liquid in the ostomy bag. EXTREMITIES: No edema. SKIN: Dry. PSYCHIATRIC: Flat affect. LABS: Reviewed. MEDICATIONS: Reviewed. ASSESSMENT: An 82-year-old woman. 1. Septic shock. 2. Acute respiratory failure. 3. Fulminant colitis secondary to Clostridium difficile. 4. Acute renal failure requiring temporary dialysis. 5. History of atrial fibrillation. 6. Urinary tract infection/methicillin-resistant Staphylococcus aureus bacteremia/Klebsiella pneumoniae infection. 7. Shock liver/transaminitis. 8. Electrolyte derangement. 9. Obesity. 10. Hyperbilirubinemia. 11. Bilateral pleural effusions. 12. Vaginal discharge. PLAN 1. Monitor for vaginal discharge, questionable greenish material being discharged. However, on exam, no material was seen. Will monitor. 2. Continue supportive care. 3. Physical therapy. 4. Continue TPN. 5. WBC today is 13,700. 6. Platelet count continues to improve. 7. Renal function remains stable. 8. I's and O's were 1770/0. 9. Discharge planning. Job#: [id number]
[2017-09-29] MEDS: MONTELUKAST SODIUM 10 MG TAB PO SCH (08:42)
[2017-09-29] MEDS: FUROSEMIDE INJ 10 MG/ML 4 ML VIAL IV SCH (08:42)
[2017-09-29] MEDS: VANCOMYCIN 250MG/5ML ORAL SOLN PO SCH ×2 (08:42→21:12)
[2017-09-29] MEDS: AMIODARONE HCL 200 MG TAB PO SCH (08:42)
[2017-09-29] MEDS: TIZANIDINE HCL 4 MG TAB PO SCH ×2 (08:42→21:12)
[2017-09-29] MEDS: PANTOPRAZOLE 40 MG 10ML VIAL IV SCH (08:42)
[2017-09-29] MEDS: BALSAM PERU/CASTOR OIL 60 GM OINT...G. TP SCH ×2 (09:53→18:47)
[2017-09-29 12:00] VITALS: BP 95/50
--- NOTE | 2017-09-29 15:41 | Progress Note ---
DATE: September 29, 2017 The patient is fairly stable. She is in no acute distress. She is not coughing. She is complaining of thirst. No nausea, vomiting or diarrhea reported. No overt medication reaction reported. PHYSICAL EXAMINATION VITALS: In the past 24 hours, temperatures were up to 98.6 degrees Fahrenheit. She is stable hemodynamically. HEENT: She has no pallor. There is no icterus. No oropharyngeal lesions. NECK: Supple. CHEST: Symmetric. The lungs are clear. HEART: Sounds are regular without new murmur. ABDOMEN: Soft. Bowel sounds are present. The abdominal incision is intact and clean. Her colostomy is in place. EXTREMITIES: There is no acute erythema of the extremities. Her creatinine is 0.7. Her white count is 13.7, hemoglobin 9.3 and platelet count 81,000. There are no new positive culture reports. IMPRESSION: She is recovering from severe sepsis with shock and multiorgan failure due to septicemia and line infection due to methicillin-resistant Staphylococcus aureus. The infected line was removed on September 19, 2017. Blood culture was positive on September 17, 2017. September 19, 2017, blood cultures were negative. September 21, 2017, and September 22, 2017, blood cultures were negative. She also had urinary tract infection with klebsiella. She had fulminant Clostridium difficile colitis for which she has had exploratory laparotomy with colectomy and colostomy. I suggest she needs 14 days of treatment for her line infection and bloodstream infection due to methicillin-resistant Staphylococcus aureus. She needs at least 14 days of treatment for her Clostridium difficile colitis from the date treatment was started in the hospital. She should complete at least 7 days of treatment for her genitourinary tract infection. Monitor temperature, CBC, and renal function. Monitor her abdominal wound for healing. I will discuss the patient with the primary physician. Given her thrombocytopenia, we have her on Cubicin, and informed that this antibiotic may be too expensive for the retirement facility to which the patient is to be transferred. We cannot use Zyvox due to the already existing thrombocytopenia. We will switch to vancomycin IV with close monitoring of her CBC as vancomycin may cause thrombocytopenia in some patients. I will discuss the patient with the primary physician. Job#: [id number] [place]
--- NOTE | 2017-09-29 15:44 | Progress Note ---
DATE: September 28, 2017 INFECTIOUS DISEASE PROGRESS NOTE The patient is resting quietly. She is in no acute distress. She is not coughing much currently. No dyspnea at rest. No vomiting, no diarrhea. No overt medication reaction reported. In the previous 24 hours, she had temperatures up to 99.7 degrees Fahrenheit. She is hemodynamically stable. There is no gross pallor, no obvious icterus, no oropharyngeal lesions. The neck is supple. The chest is symmetric. Breath sounds are decreased at the lung bases. Heart sounds are regular without a new murmur. The abdomen is soft. The abdominal wound dressing is intact. A colostomy is in place. No acute erythema of her extremities. September 29 her white count 12.8, hemoglobin 9.4, platelet count 76,000. Her serum creatinine 0.7. There are no new positive culture reports. IMPRESSION: She is recovering from severe sepsis with shock and multiorgan dysfunction. She has fulminant Clostridium difficile colitis for which she had exploratory laparotomy with colectomy and colostomy. She has septicemia and line infection due to Methicillin-resistant Staphylococcus aureus. The line was removed on September 19. Repeat blood cultures September 21 and are negative. Blood cultures were positive September 17. September 19 blood cultures were negative. She had urinary tract infection with klebsiella with positive urine culture September 17. I suggest continue current management. Monitor temperature, CBC, renal function. She has thrombocytopenia which I suspect may be multifactorial including the recent septicemia, probably the effect of medications. I suggest continue current management. Monitor temperature, CBC, renal function. Continue to monitor clinical response to treatment. Job#: [id number] DARIO
[2017-09-29 16:00] VITALS: BP 85/58
[2017-09-29] MEDS: MEGESTROL ACETATE 40 MG TAB PO SCH (16:08)
[2017-09-29] MEDS: VANCOMYCIN 1GM/NS 250 ML 250 ML IV SCH (16:08)
[2017-09-29] MEDS ORDERED: SODIUM CHLORIDE 0.9% 1000ML 500 ML IV ONE (17:00)
[2017-09-29 20:00] VITALS: BP 117/61
[2017-09-29] MEDS: CENTRAL TPN FORMULA 1 BAG IV SCH (20:00)
[2017-09-29] MEDS: LATANOPROST(OPTH) 2.5 ML BTL OP SCH (21:13)
[2017-09-30] VITALS (8 sets, daily range): BP systolic 100–131; BP diastolic 47–73
[2017-09-30] MEDS: METRONIDAZOLE 500MG/NS 100ML 100 ML IV SCH ×3 (06:03→22:00)
[2017-09-30 06:28] LABS: HEMATOCRIT 24.4 % (34.2-44.1); MEAN CORPUSCULAR HEMOGLOBIN 32.5 pg (28-32); MEAN CORPUSCULAR HGB CONC 32.8 g/dL (31-35); MEAN CORPUSCULAR VOLUME 99.2 fL (81-99); PLATELET COUNT 73 x10e3/uL (140-360); RED BLOOD COUNT 2.46 x10e6/uL (3.6-5.1); RED CELL DISTRIBUTION WIDTH 22.1 % (11.7-14.4)
[2017-09-30 06:46] LABS: ANION GAP 8.5 mmol/L (8-16); BLOOD UREA NITROGEN 29 mg/dL (7-26); BUN/CREATININE RATIO 45 (6-25); CARBON DIOXIDE 21 mmol/L (22-29); CHLORIDE 109 mmol/L (98-107); CREATININE, SERUM 0.65 mg/dL (0.57-1.11); EST GLOMERULAR FILTRATION RATE > 60 ML/MIN (60-); GLUCOSE 88 mg/dL (74-118); POTASSIUM 4.5 mmol/L (3.5-5.1); SODIUM 134 mmol/L (136-145)
[2017-09-30 07:39] LABS: BAND NEUTROPHILS % (MANUAL) 1 %; EOSINOPHILS % (MANUAL) 1 % (0-7); HYPOCHROMASIA SLIGHT; LYMPHOCYTES % (MANUAL) 18 % (19-48); MONOCYTES % (MANUAL) 17 % (3.4-9.0); NEUTROPHILS % (MANUAL) 63 % (40-74); PLATELET ESTIMATE SLIGHTLY DECREASED; PLATELET MORPHOLOGY COMMENT FEW LARGE; RBC MORPHOLOGY COMMENT NORMAL
[2017-09-30 07:40] LABS: ANISOCYTOSIS SLIGHT
[2017-09-30] MEDS: IPRATROPIUM BROMIDE 0.02% 2.5 ML NEB NEB SCH ×3 (07:40→22:30)
[2017-09-30] MEDS: AMIODARONE HCL 200 MG TAB PO SCH (08:42)
[2017-09-30] MEDS: TIZANIDINE HCL 4 MG TAB PO SCH ×2 (08:42→21:00)
[2017-09-30] MEDS: VANCOMYCIN 250MG/5ML ORAL SOLN PO SCH ×2 (08:42→21:00)
[2017-09-30] MEDS: PANTOPRAZOLE 40 MG 10ML VIAL IV SCH (08:42)
[2017-09-30] MEDS: MEGESTROL ACETATE 40 MG TAB PO SCH ×2 (08:42→17:51)
[2017-09-30] MEDS: MONTELUKAST SODIUM 10 MG TAB PO SCH (08:42)
[2017-09-30] MEDS: FUROSEMIDE INJ 10 MG/ML 4 ML VIAL IV SCH (08:42)
[2017-09-30] MEDS: BALSAM PERU/CASTOR OIL 60 GM OINT...G. TP SCH ×2 (09:12→17:51)
--- NOTE | 2017-09-30 10:11 | Consultation ---
DATE OF CONSULTATION: September 22, 2017 Ms. Gregg is an 82-year-old female who was referred to me for evaluation of cytopenia. The patient had presented with septic shock. Subsequently, was found to be leukemoid. The patient was found to have Clostridia colitis. The patient had a total colectomy and subsequently referred to me for further evaluation and treatment. SOCIAL HISTORY: Cannot be obtained. FAMILY HISTORY: Cannot be obtained. ALLERGIES: REPORTED NONE. MEDICATIONS: At this time: 1. Norepinephrine. 2. Metronidazole. 3. Vasopressor. 4. Midazolam. 5. Fentanyl. 6. Vancomycin. 7. Potassium chloride. 8. Amiodarone. 9. TPN. 10. Ondansetron. 11. Montelukast. 12. Tizanidine. 13. Propofol. 14. Lasix. 15. Protonix. 16. Cefepime. REVIEW OF SYSTEMS HEENT: Normal. CARDIAC: Normal. RESPIRATORY: Intubated at the time. GI: Clostridia colitis with total resection of the colon. : At the present time, had presented with ATN. PHYSICAL EXAMINATION GENERAL: A moderately built female intubated. NECK: No palpable adenopathy. HEART: Tachycardic. LUNGS: A few crepitations. ABDOMEN: Ileostomy. RECTAL: Vaginal examination could not be done. CENTRAL NERVOUS SYSTEM: Could not be examined. LABS: Shows a sodium of 133, potassium 2.7, chloride 100, CO2 26, BUN 21, creatinine 0.9. Hemoglobin of 7.4, hematocrit 20.8, white count 16,000, and platelets 40,000. INR 1.24. Bilirubin 1.5, SGOT 139, SGPT 140, alkaline phosphatase 66. IMPRESSION 1. Leukemoid reaction. 2. Anemia. 3. Acquired thrombocytopenia. 4. Methicillin-resistant Staphylococcus aureus sepsis. 5. Klebsiella urinary tract infection. 6. Ascites by computerized tomography scan. 7. Pleural effusions by computerized tomography scan. 8. Colitis clostridia difficile. 9. Septic shock. 10. Acute tubular necrosis, recovering. 11. Lactic acidosis. 12. Atrial fibrillation. 13. Morbid obesity. 14. Total colectomy. 15. Shock liver. PLAN, COMMENTS AND SUGGESTIONS: I will hematological support her with platelet transfusion and blood transfusion. I will confine myself to hematology. Thank you very much for allowing me to participate in the management of this patient. Job#: [id number] RI cc:MD JUS DEMPSEY M.D. AUGUSTUS FAHNBULLEH, MD SATHISH CAYENNE, MD DAVID LAM, MD
--- NOTE | 2017-09-30 12:12 | Progress Note ---
DATE: September 30, 2017 TIME: 7:15 a.m. OVERNIGHT: Low blood pressure, bolus fluids. REVIEW OF SYSTEMS: Unreliable. PHYSICAL EXAMINATION VITAL SIGNS: Reviewed. GENERAL: A tired-appearing woman resting in bed. HEENT: Anicteric. CARDIOVASCULAR: Normal S1 and S2. LUNGS: Moderate breath sounds. ABDOMEN: Soft. She has an ostomy in place. She has a dressing in place. EXTREMITIES: No edema. SKIN: Dry. PSYCHIATRIC: Flat affect. LABS: Reviewed. MEDICATIONS: Reviewed. ASSESSMENT: An 82-year-old woman. 1. Septic shock. 2. Acute respiratory failure. 3. Fulminant colitis secondary to Clostridium difficile. 4. Acute renal failure requiring temporary dialysis. 5. History of atrial fibrillation. 6. Urinary tract infection/methicillin-resistant Staphylococcus aureus bacteremia/Klebsiella pneumoniae infection. 7. Shock liver/transaminitis. 8. Electrolyte derangement. 9. Obesity. 10. Hyperbilirubinemia. 11. Bilateral pleural effusions. 12. Vaginal discharge. PLAN 1. Continue diet. TPN is being weaned off. 2. Bolus fluids as needed. Follow blood pressure. 3. Fall in H and H, will recheck. 4. Physical therapy. 5. Discharge planning. Job#: [id number]
[2017-09-30] MEDS ORDERED: SODIUM CHLORIDE 0.9% 1000ML 500 ML IV ONE (12:15)
--- NOTE | 2017-09-30 14:32 | Progress Note ---
DATE: September 30, 2017 The patient is resting quietly. She is in no acute distress. She is not coughing currently. No dyspnea at rest. No vomiting. No diarrhea. No overt medication reaction reported. PHYSICAL EXAMINATION VITAL SIGNS: In the past 24 hours temperatures were up to 97.8 degrees Fahrenheit. She is stable hemodynamically. HEENT: She has no gross pallor. No obvious icterus. No oropharyngeal lesions. NECK: Supple. CHEST: Symmetric. LUNGS: Are clear. HEART: Sounds are regular. There is no new murmur. ABDOMEN: Soft. Bowel sounds are present. EXTREMITIES: There is no acute erythema of her extremities. Her white count is 13.5, hemoglobin 8.0, platelet count 73,000. Her serum creatinine is 0.6. There are no new positive culture reports. IMPRESSION: She is recovering from severe sepsis with shock and multiorgan failure including renal and respiratory failure. She was on the ventilator and has been extubated. She had fulminant Clostridium difficile colitis for which she has had an exploratory laparotomy with colectomy and colostomy. She had urinary tract infection with klebsiella. She has septicemia with methicillin-resistant staph aureus associated with an infected line that was removed on September 19. Repeat blood cultures September 21 and are negative. She still has leukocytosis. She has thrombocytopenia. Her renal failure has resolved. I suggest continue current antimicrobial therapy to complete a course of treatment as previously suggested. I have discussed the patient with Dr. Webster. Job#: [id number] SERJIO
[2017-09-30] MEDS: VANCOMYCIN 1GM/NS 250 ML 250 ML IV SCH (16:20)
[2017-09-30] MEDS: HEPARIN SOD (PORCINE) 5,000 UNIT/ML VIAL SC SCH (21:00)
[2017-09-30] MEDS: LATANOPROST(OPTH) 2.5 ML BTL OP SCH (21:00)
[2017-10-01] VITALS (8 sets, daily range): BP systolic 92–143; BP diastolic 50–67
[2017-10-01] MEDS: METRONIDAZOLE 500MG/NS 100ML 100 ML IV SCH ×3 (06:00→22:51)
[2017-10-01] MEDS: IPRATROPIUM BROMIDE 0.02% 2.5 ML NEB NEB SCH ×3 (07:00→21:00)
[2017-10-01] MEDS: MEGESTROL ACETATE 40 MG TAB PO SCH ×2 (09:05→17:04)
[2017-10-01] MEDS: VANCOMYCIN 250MG/5ML ORAL SOLN PO SCH ×2 (09:05→20:39)
[2017-10-01] MEDS: PANTOPRAZOLE 40 MG 10ML VIAL IV SCH (09:05)
[2017-10-01] MEDS: AMIODARONE HCL 200 MG TAB PO SCH (09:05)
[2017-10-01] MEDS: TIZANIDINE HCL 4 MG TAB PO SCH ×2 (09:05→20:46)
[2017-10-01] MEDS: MONTELUKAST SODIUM 10 MG TAB PO SCH (09:05)
[2017-10-01] MEDS: HEPARIN SOD (PORCINE) 5,000 UNIT/ML VIAL SC SCH ×2 (09:07→20:38)
[2017-10-01 09:21] LABS: BASOPHILS # (AUTO) 0.1 (0.0-0.1); BASOPHILS % 0.4 % (0.0-1.0); EOSINOPHILS % 0.1 % (0.0-6.0); HEMATOCRIT 23.8 % (34.2-44.1); HEMOGLOBIN 8.2 g/dL (12.0-16.0); LYMPHOCYTES # (AUTO) 1.6 (1.0-3.2); LYMPHOCYTES % 12.1 % (18.0-39.1); MEAN CORPUSCULAR HEMOGLOBIN 32.9 pg (28-32); MEAN CORPUSCULAR HGB CONC 34.5 g/dL (31-35); MEAN CORPUSCULAR VOLUME 95.6 fL (81-99); MONOCYTES # (AUTO) 2.9 (0.2-0.8); MONOCYTES % 21.1 % (4.4-11.3); NEUTROPHILS # (AUTO) 8.8 (2.1-6.9); NEUTROPHILS % 65.1 % (38.7-80.0); PLATELET COUNT 89 x10e3/uL (140-360); RED BLOOD COUNT 2.49 x10e6/uL (3.6-5.1); RED CELL DISTRIBUTION WIDTH 21.5 % (11.7-14.4)
[2017-10-01] MEDS: BALSAM PERU/CASTOR OIL 60 GM OINT...G. TP SCH ×2 (10:40→16:00)
[2017-10-01 11:11] LABS: BILIRUBIN,URINE NEGATIVE (NEGATIVE); CLARITY,URINE SL CLOUDY (CLEAR); COLOR,URINE YELLOW (YELLOW); KETONES,URINE NEGATIVE (NEGATIVE); LEUKOCYTE ESTERASE ,URINE 1+ (NEGATIVE); NITRITE,URINE NEGATIVE (NEGATIVE); PROTEIN,URINE DIPSTICK TRACE (NEGATIVE); URINE UROBILINOGEN 0.2 mg/dL (0.2 - 1)
[2017-10-01 11:26] LABS: BACTERIA,URINE FEW /HPF; RBC,URINE 0-5 /HPF (0-5)
[2017-10-01 11:27] LABS: EPITHELIAL CELLS,URINE RARE /LPF; URIC ACID CRYSTALS,URINE RARE (FEW)
[2017-10-01 11:29] LABS: AMORPHOUS SEDIMENT,URINE FEW (FEW); YEAST,URINE MANY
[2017-10-01] MEDS ORDERED: SODIUM CHLORIDE 0.9% 1000ML 500 ML IV ONE (12:15)
--- NOTE | 2017-10-01 14:03 | Progress Note ---
DATE: October 01, 2017 The patient is resting quietly. She is alert. Her sensorium is clear. She is not coughing. No dyspnea at rest. No vomiting. No diarrhea. She reports that she has no pain currently. No overt medication reaction reported. PHYSICAL EXAMINATION VITAL SIGNS: In the past 24 hours she had temperature up to 98 degrees Fahrenheit, most recent temperature 97.2. Her blood pressure currently 143/67. HEENT: She has no gross pallor. No obvious icterus. No oropharyngeal lesions. NECK: Supple. CHEST: Symmetric. LUNGS: Clear. HEART: Sounds are regular without a new murmur. ABDOMEN: Soft. Bowel sounds are present. The ostomy is in place. EXTREMITIES: No acute erythema of the extremities. White count is 13.5, serum creatinine 0.6. There are no new positive culture reports. IMPRESSION: She has been recovering from severe sepsis with shock and multiorgan dysfunction. She had fulminant Clostridium difficile colitis for which she had exploratory laparotomy with colectomy and colostomy. She has septicemia with Methicillin-resistant Staphylococcus aureus. An infected line was removed on September 19. Tip culture was positive. Blood cultures drawn September 19, and were negative. She had urinary tract infection with Klebsiella from a urine culture September 17. She still has leukocytosis. She is afebrile. I suggest continue current management. Monitor temperature, CBC, renal function. The patient has a stage II sacral decubitus wound without necrotic slough. Continue local wound care. I have discussed the findings and treatment with the patient and family at the bedside. Job#: [id number] SERJIO
[2017-10-01] MEDS: VANCOMYCIN 1GM/NS 250 ML 250 ML IV SCH (17:04)
[2017-10-01] MEDS ORDERED: SODIUM CHLORIDE 0.9% 500ML 500 ML IV ONE (20:00)
[2017-10-01] MEDS: LATANOPROST(OPTH) 2.5 ML BTL OP SCH (20:45)
[2017-10-01] MEDS ORDERED: SODIUM CHLORIDE 0.9% 250ML 250 ML ONE (22:44)
[2017-10-02] VITALS (7 sets, daily range): BP systolic 87–149; BP diastolic 42–68
[2017-10-02] MEDS: METRONIDAZOLE 500MG/NS 100ML 100 ML IV SCH ×3 (05:12→21:35)
[2017-10-02] MEDS: IPRATROPIUM BROMIDE 0.02% 2.5 ML NEB NEB SCH ×3 (07:12→22:55)
[2017-10-02 07:36] LABS: BASOPHILS % 0.3 % (0.0-1.0); EOSINOPHILS % 0.3 % (0.0-6.0); HEMOGLOBIN 7.6 g/dL (12.0-16.0); LYMPHOCYTES # (AUTO) 2.3 (1.0-3.2); LYMPHOCYTES % 19.6 % (18.0-39.1); MEAN CORPUSCULAR HEMOGLOBIN 32.1 pg (28-32); MEAN CORPUSCULAR HGB CONC 33.6 g/dL (31-35); MEAN CORPUSCULAR VOLUME 95.4 fL (81-99); MONOCYTES # (AUTO) 2.7 (0.2-0.8); MONOCYTES % 22.2 % (4.4-11.3); NEUTROPHILS # (AUTO) 6.8 (2.1-6.9); NEUTROPHILS % 56.5 % (38.7-80.0); PLATELET COUNT 99 x10e3/uL (140-360); RED BLOOD COUNT 2.37 x10e6/uL (3.6-5.1); RED CELL DISTRIBUTION WIDTH 21.5 % (11.7-14.4)
[2017-10-02 07:38] LABS: HEMATOCRIT 22.6 % (34.2-44.1)
[2017-10-02 07:47] LABS: BLOOD UREA NITROGEN 19 mg/dL (7-26); BUN/CREATININE RATIO 33 (6-25); CALCIUM 8.1 mg/dL (8.4-10.2); CARBON DIOXIDE 17 mmol/L (22-29); CHLORIDE 111 mmol/L (98-107); CREATININE, SERUM 0.57 mg/dL (0.57-1.11); EST GLOMERULAR FILTRATION RATE > 60 ML/MIN (60-); GLUCOSE 74 mg/dL (74-118); MAGNESIUM 1.3 MG/DL (1.3-2.1); SODIUM 135 mmol/L (136-145)
[2017-10-02] MEDS: HEPARIN SOD (PORCINE) 5,000 UNIT/ML VIAL SC SCH ×2 (08:02→21:35)
[2017-10-02] MEDS: MEGESTROL ACETATE 40 MG TAB PO SCH ×2 (08:02→16:54)
[2017-10-02] MEDS: AMIODARONE HCL 200 MG TAB PO SCH (08:02)
[2017-10-02] MEDS: PANTOPRAZOLE 40 MG 10ML VIAL IV SCH (08:02)
[2017-10-02] MEDS: VANCOMYCIN 250MG/5ML ORAL SOLN PO SCH ×2 (08:02→21:35)
[2017-10-02] MEDS: MONTELUKAST SODIUM 10 MG TAB PO SCH (08:02)
[2017-10-02] MEDS: BALSAM PERU/CASTOR OIL 60 GM OINT...G. TP SCH ×2 (08:02→16:48)
[2017-10-02] MEDS: TIZANIDINE HCL 4 MG TAB PO SCH ×2 (08:02→21:35)
[2017-10-02] MEDS ORDERED: SODIUM CHLORIDE 0.9% 250ML 250 ML IV ONE (08:15)
[2017-10-02 08:26] LABS: ANISOCYTOSIS SLIGHT; EOSINOPHILS % (MANUAL) 1 % (0-7); HYPOCHROMASIA MODERATE; LYMPHOCYTES % (MANUAL) 13 % (19-48); MONOCYTES % (MANUAL) 19 % (3.4-9.0); MYELOCYTES % (MANUAL) 1 % (0-0); NEUTROPHILS % (MANUAL) 66 % (40-74); PLATELET ESTIMATE SLIGHTLY DECREASED; PLATELET MORPHOLOGY COMMENT FEW LARGE; POIKILOCYTOSIS SLIGHT; RBC MORPHOLOGY COMMENT NORMAL
[2017-10-02] MEDS: FLUCONAZOLE 100 MG/NS 50 ML 50 ML IV SCH (08:43)
--- NOTE | 2017-10-02 13:30 | Progress Note ---
DATE: October 02, 2017 The patient is alert and responsive. She is in no acute distress. She is not coughing. No dyspnea at rest. No vomiting. No diarrhea. No overt medication reaction reported. PHYSICAL EXAMINATION VITALS: In the past 24 hours, she had temperatures up to 98.2 degrees Fahrenheit. She is stable hemodynamically. GENERAL: She has no gross pallor, no obvious icterus, no oropharyngeal lesions. NECK: Supple. CHEST: Symmetric. LUNGS: Clear. HEART: Sounds are regular without a new murmur. ABDOMEN: Soft. Bowel sounds are present. A colostomy is in place. EXTREMITIES: No acute erythema of the extremities. The sacral wound is stable. LABS: Her white count is down to 11.9. Her creatinine is 0.5. There are no new positive culture reports except the sacral wound was cultured yesterday which is showing gram-negative bacillus. The Gram stain shows a few WBCs, no organisms. IMPRESSION: She is recovering from severe sepsis with shock and multiorgan failure. She had fulminant Clostridium difficile colitis requiring exploratory laparotomy with colectomy and colostomy. She has septicemia with Methicillin-resistant Staphylococcus aureus. Repeat blood cultures are negative after the line was removed. She had gram-negative urinary tract infection. She has a sacral decubitus wound. I suggest to continue current management. Monitor temperature, CBC and renal function. Continue local care to her sacral wound. Continue local care to her abdominal wound. Job#: [id number]
[2017-10-02] MEDS ORDERED: SODIUM CHLORIDE 0.9% 250ML 250 ML ONE (16:17)
[2017-10-02] MEDS: VANCOMYCIN 1GM/NS 250 ML 250 ML IV SCH (16:48)
[2017-10-02] MEDS: LATANOPROST(OPTH) 2.5 ML BTL OP SCH (21:35)
[2017-10-03] VITALS: BP 106/58
[2017-10-03 04:00] VITALS: BP 158/72
[2017-10-03] MEDS: METRONIDAZOLE 500MG/NS 100ML 100 ML IV SCH ×2 (05:20→13:35)
[2017-10-03 06:07] LABS: HEMATOCRIT 26.9 % (34.2-44.1); HEMOGLOBIN 9.4 g/dL (12.0-16.0); MEAN CORPUSCULAR HEMOGLOBIN 33.8 pg (28-32); MEAN CORPUSCULAR HGB CONC 34.9 g/dL (31-35); MEAN CORPUSCULAR VOLUME 96.8 fL (81-99); PLATELET COUNT 100 x10e3/uL (140-360); RED BLOOD COUNT 2.78 x10e6/uL (3.6-5.1); RED CELL DISTRIBUTION WIDTH 21.7 % (11.7-14.4)
[2017-10-03] MEDS: FLUCONAZOLE 100 MG/NS 50 ML 50 ML IV SCH (06:43)
[2017-10-03] MEDS: IPRATROPIUM BROMIDE 0.02% 2.5 ML NEB NEB SCH ×2 (07:13→15:00)
[2017-10-03 08:15] VITALS: BP 170/79
[2017-10-03 09:20] LABS: BAND NEUTROPHILS % (MANUAL) 4 %; LYMPHOCYTES % (MANUAL) 24 % (19-48); MONOCYTES % (MANUAL) 16 % (3.4-9.0); NEUTROPHILS % (MANUAL) 56 % (40-74)
[2017-10-03 09:23] LABS: HYPOCHROMASIA SLIGHT; PLATELET ESTIMATE SLIGHTLY DECREASED; RBC MORPHOLOGY COMMENT NORMAL
[2017-10-03 09:24] LABS: ANISOCYTOSIS SLIGHT; BURR CELLS SLIGHT; PLATELET MORPHOLOGY COMMENT FEW GIANT
[2017-10-03] MEDS: PANTOPRAZOLE 40 MG 10ML VIAL IV SCH (09:29)
[2017-10-03] MEDS: VANCOMYCIN 250MG/5ML ORAL SOLN PO SCH (09:29)
[2017-10-03] MEDS: MONTELUKAST SODIUM 10 MG TAB PO SCH (09:29)
[2017-10-03] MEDS: AMIODARONE HCL 200 MG TAB PO SCH (09:29)
[2017-10-03] MEDS: MEGESTROL ACETATE 40 MG TAB PO SCH ×2 (09:29→16:19)
[2017-10-03] MEDS: HEPARIN SOD (PORCINE) 5,000 UNIT/ML VIAL SC SCH (09:30)
[2017-10-03] MEDS: BALSAM PERU/CASTOR OIL 60 GM OINT...G. TP SCH ×2 (09:30→16:19)
[2017-10-03] MEDS: TIZANIDINE HCL 4 MG TAB PO SCH (09:31)
[2017-10-03 12:04] VITALS: BP 115/58
[2017-10-03] MEDS: VANCOMYCIN 1GM/NS 250 ML 250 ML IV SCH (16:19)
== END 2017-10-03 19:00 | DRG 853 ==
LOC: ER 22:32 → ERHOLD 09-18 02:03 → ICU 09-18 02:41 → ACU 09-22 11:16 → MED/SURG3 09-27 14:45
PROVIDERS: ADMIT Internal Medicine; ATTEND Internal Medicine
PROC: 0D1B0Z4 Bypass Ileum to Cutaneous, Open Approach (ICD-10-PCS; 2017-09-19)
PROC: 5A1D70Z Performance of Urinary Filtration, Intermittent, Less than 6 Hours Per Day (ICD-10-PCS; 2017-09-19)
PROC: 30233N1 Transfusion of Nonautologous Red Blood Cells into Peripheral Vein, Percutaneous Approach (ICD-10-PCS; 2017-09-19)
PROC: 0DTE0ZZ Resection of Large Intestine, Open Approach (ICD-10-PCS; principal; 2017-09-19 19:30)
PROC: 5A1D70Z Performance of Urinary Filtration, Intermittent, Less than 6 Hours Per Day (ICD-10-PCS; 2017-09-20)
PROC: 5A1955Z Respiratory Ventilation, Greater than 96 Consecutive Hours (ICD-10-PCS; 2017-09-20)
PROC: 3E0336Z Introduction of Nutritional Substance into Peripheral Vein, Percutaneous Approach (ICD-10-PCS; 2017-09-21)
PROC: 30233R1 Transfusion of Nonautologous Platelets into Peripheral Vein, Percutaneous Approach (ICD-10-PCS; 2017-09-23)
DX: A41.4 Sepsis due to anaerobes (principal); R65.21 Severe sepsis with septic shock; N17.0 Acute kidney failure with tubular necrosis; K72.00 Acute and subacute hepatic failure without coma; J95.821 Acute postprocedural respiratory failure; T80.211A Bloodstream infection due to central venous catheter, initial encounter; A04.72 Enterocolitis due to Clostridium difficile, not specified as recurrent; N17.9 Acute kidney failure, unspecified; E87.2 Acidosis; N39.0 Urinary tract infection, site not specified; E87.1 Hypo-osmolality and hyponatremia; R18.8 Other ascites; J90 Pleural effusion, not elsewhere classified; A41.02 Sepsis due to Methicillin resistant Staphylococcus aureus; E86.0 Dehydration; D64.9 Anemia, unspecified; I48.91 Unspecified atrial fibrillation; I10 Essential (primary) hypertension; Z87.440 Personal history of urinary (tract) infections; K21.9 Gastro-esophageal reflux disease without esophagitis; E78.5 Hyperlipidemia, unspecified; E66.9 Obesity, unspecified; R53.81 Other malaise; E83.42 Hypomagnesemia; D72.823 Leukemoid reaction; D69.6 Thrombocytopenia, unspecified; B96.1 Klebsiella pneumoniae [K. pneumoniae] as the cause of diseases classified elsewhere; E80.6 Other disorders of bilirubin metabolism; E87.6 Hypokalemia; I48.0 Paroxysmal atrial fibrillation; E87.70 Fluid overload, unspecified; Z68.37 Body mass index [BMI] 37.0-37.9, adult; L89.151 Pressure ulcer of sacral region, stage 1
CPT/HCPCS: 36415; 36556; 36600; 51700; 70450; 71045; 74018; 74176; 74470; 76770; 76937; 80048; 80053; 80076; 80202; 81001; 82150; 82550; 82553; 82805; 82948; 83605; 83690; 83735; 84100; 84484; 85007; 85014; 85018; 85025; 85027; 85610; 85730; 86022; 86704; 86706; 86850; 86900; 86920; 87040; 87070; 87071; 87086; 87186; 87205; 87340; 87493; 88307; 88309; 93005; 93306; 94002; 94003; 94640; 96361; 96365; 96366; 97139; 99284; C1751; J0610; J0692; J0696; J1450; J1644; J1940; J1956; J2001; J2150; J2250; J2270; J2370; J2997; J3370; J3475; J3480; J7030; J7040; J7042; J7050; J7070; J7120; P9016; P9034

== ENCOUNTER 2017-10-03 23:16 | Observation (INO) | payer MEDICARE ==
[~2017-10-03] VITALS: Ht 170.2 cm; Wt 76.2 kg
[2017-10-04] VITALS (9 sets, daily range): BP systolic 116–164; BP diastolic 60–77
[2017-10-04] MEDS ORDERED: ONDANSETRON HCL INJ 2 MG/ML VIAL IV STA (01:01)
[2017-10-04] MEDS ORDERED: MORPHINE SULFATE 2 MG/ML SYR IV STA (01:01)
[2017-10-04] MEDS ORDERED: SODIUM CHLORIDE 0.9% 500ML 500 ML IV ONE (01:15)
[2017-10-04] MEDS ORDERED: MORPHINE SULFATE 2 MG/ML SYR IV PRN (02:30)
[2017-10-04] MEDS ORDERED: ONDANSETRON HCL INJ 2 MG/ML VIAL IV PRN (02:30)
[2017-10-04] MEDS ORDERED: ONDANSETRON HCL 4 MG ORAL DISINTEGRATING TAB SL PRN (09:30)
--- NOTE | 2017-10-04 09:44 | Diagnostic Imaging Report ---
EXAM: XR CHEST 1 VIEW DATE: 10/04/2017 9:04 AM INDICATION: Shortness of breath COMPARISON: 09/26/2017 FINDINGS: Lines and Tubes: NG tube removed. Right IJ catheter stable. Heart and Mediastinum: Prominent. Aortic vascular calcifications. Lungs and Pleura: There is an small opacity at the left lung base which obscures the left hemidiaphragm which could represent alone or in combination pleural fluid, atelectasis, or pneumonia. Bones and Soft Tissues: No acute findings. IMPRESSION: 1. Left retrocardiac opacity as above. Signed by: Dr. Faisal Graff MD on 10/04/2017 9:40 AM
[2017-10-04 10:01] LABS: BASOPHILS % 0.3 % (0.0-1.0); EOSINOPHILS % 0.4 % (0.0-6.0); HEMATOCRIT 26.2 % (34.2-44.1); HEMOGLOBIN 9.1 g/dL (12.0-16.0); LYMPHOCYTES % 17.8 % (18.0-39.1); MEAN CORPUSCULAR HEMOGLOBIN 32.4 pg (28-32); MEAN CORPUSCULAR HGB CONC 34.7 g/dL (31-35); MEAN CORPUSCULAR VOLUME 93.2 fL (81-99); MONOCYTES # (AUTO) 2.2 (0.2-0.8); MONOCYTES % 19.7 % (4.4-11.3); NEUTROPHILS # (AUTO) 6.8 (2.1-6.9); NEUTROPHILS % 60.8 % (38.7-80.0); PLATELET COUNT 128 x10e3/uL (140-360); RED BLOOD COUNT 2.81 x10e6/uL (3.6-5.1); RED CELL DISTRIBUTION WIDTH 20.7 % (11.7-14.4)
[2017-10-04 10:28] LABS: ANION GAP 7.7 mmol/L (8-16); BLOOD UREA NITROGEN 12 mg/dL (7-26); BUN/CREATININE RATIO 21 (6-25); CALCIUM 8.6 mg/dL (8.4-10.2); CARBON DIOXIDE 18 mmol/L (22-29); CHLORIDE 109 mmol/L (98-107); CREATININE, SERUM 0.58 mg/dL (0.57-1.11); EST GLOMERULAR FILTRATION RATE > 60 ML/MIN (60-); GLUCOSE 89 mg/dL (74-118); POTASSIUM 3.7 mmol/L (3.5-5.1); SODIUM 131 mmol/L (136-145)
[2017-10-04] MEDS ORDERED: SODIUM CHLORIDE 0.9% 250ML 250 ML ONE (10:49)
[2017-10-04] MEDS ORDERED: FLUCONAZOLE 100 MG/NS 50 ML 50 ML IV SCH (11:00)
--- NOTE | 2017-10-04 11:03 | History and Physical ---
CHIEF COMPLAINT: Uncontrolled pain. HISTORY OF PRESENT ILLNESS: This is an 83-year-old woman recently discharged from the hospital, now readmitted after son dissatisfied [facility] facility and uncontrolled pain. For details of the previous hospitalization, refer to the last H\T\P and Discharge Summary just a day ago. PAST MEDICAL HISTORY: Septic arthritis of the knees, hypertension, GERD, C. 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 difficile, status post total colectomy, acute renal failure requiring temporary dialysis, atrial fibrillation, urinary tract infection, MRSA bacteremia, Klebsiella pneumonia infection, shock liver, transaminitis, electrolyte derangement, obesity, bilateral pleural effusion. PAST SURGICAL HISTORY: Hysterectomy, bilateral cataract excision. ALLERGIES: PER ELECTRONIC MEDICAL RECORDS. FAMILY/SOCIAL HISTORY: The patient is . She has 3 children. No alcohol, illicits or cigarettes. MEDICATIONS: Per electronic medical records. REVIEW OF SYSTEMS: Unobtainable. PHYSICAL EXAMINATION VITAL SIGNS: Reviewed. GENERAL APPEARANCE: A tired-appearing woman resting in the bed. HEENT: Anicteric. CARDIOVASCULAR: Normal S1 and S2. LUNGS: Moderate breath sounds, ABDOMEN: Soft. She has a dressing at the midline. She has right-sided ostomy in place. EXTREMITIES: There is no edema. She has SCDs bilaterally. NEUROLOGIC: Not interactive, but eyes open. SKIN: Dry. PSYCHIATRIC: Flat affect. LABS: Reviewed. MEDICATIONS: Reviewed. ASSESSMENT: An 82-year-old woman. 1. Uncontrolled pain. 2. Fulminant colitis secondary to Clostridium difficile, status post total colectomy. 3. Urinary tract infection. 4. Methicillin-resistant Staphylococcus aureus bacteremia and Klebsiella pneumonia infection. 5. Electrolyte derangement. 6. Bilateral pleural effusion. PLAN: 1. Resume all medications. 2. Continue physical therapy. 3. SCDs for DVT prophylaxis. 4. Discharge planning back to [facility]. Son is dissatisfied with [id number]. Job#: [id number]
[2017-10-04] MEDS: VANCOMYCIN 1GM/NS 250 ML 250 ML IV SCH (11:11)
[2017-10-04 11:34] LABS: LYMPHOCYTES % (MANUAL) 27 % (19-48); MONOCYTES % (MANUAL) 17 % (3.4-9.0); NEUTROPHILS % (MANUAL) 56 % (40-74); PLATELET ESTIMATE SLIGHTLY DECREASED; PLATELET MORPHOLOGY COMMENT NORMAL; RBC MORPHOLOGY COMMENT NORMAL
[2017-10-04] MEDS: METRONIDAZOLE 500MG/NS 100ML 100 ML IV SCH ×2 (13:58→20:43)
[2017-10-04] MEDS: FLUCONAZOLE 100 MG/NS 50 ML 50 ML IV SCH (13:58)
[2017-10-04] MEDS: FUROSEMIDE INJ 10 MG/ML 2 ML VIAL IV SCH (13:59)
[2017-10-04 19:00] LABS: CLARITY,URINE HAZY (CLEAR); COLOR,URINE YELLOW (YELLOW)
[2017-10-04 19:01] LABS: BACTERIA,URINE RARE /HPF; BILIRUBIN,URINE NEGATIVE (NEGATIVE); EPITHELIAL CELLS,URINE FEW /LPF; KETONES,URINE NEGATIVE (NEGATIVE); LEUKOCYTE ESTERASE ,URINE 1+ (NEGATIVE); NITRITE,URINE NEGATIVE (NEGATIVE); PROTEIN,URINE DIPSTICK NEGATIVE (NEGATIVE); RBC,URINE 0-5 /HPF (0-5); URINE UROBILINOGEN 0.2 mg/dL (0.2 - 1); WBC,URINE (MAN) >50 /HPF (0-5)
[2017-10-04 19:02] LABS: YEAST,URINE MANY
[2017-10-04] MEDS: PRAVASTATIN 20 MG TAB PO SCH (20:43)
[2017-10-04] MEDS: LATANOPROST(OPTH) 2.5 ML BTL OP SCH (20:43)
--- NOTE | 2017-10-04 22:28 | Consultation ---
DATE OF CONSULTATION: October 04, 2017 REASON FOR CONSULTATION: Evaluate and assist in management of patient with recent septicemia, urinary tract infection. Information is gathered from the current medical record. The patient is known to me from recent hospitalization. She is an 83-year-old woman with a history of septic arthritis of the knees, hypertension, gastroesophageal reflux disease, who was recently admitted to this hospital and found with severe sepsis with shock and multiorgan failure due to prominent Clostridium difficile colitis. She also has septicemia due to methicillin-resistant Staph aureus associated with a line infection. The infected line was removed. Her repeat blood cultures were negative. She was also found to have urinary tract infection with Klebsiella pneumoniae. She underwent exploratory laparotomy with colectomy and creation of a colostomy. She developed a superficial sacral decubitus wound. She was receiving antibiotic treatment postoperatively and was discharged to a local residential facility. She is readmitted to the hospital here on October 04, 2017, because it is reported the son was not happy with the facility. The patient has, therefore, been readmitted here to continue care. MEDICAL HISTORY: As reported above. She has had past hysterectomy and bilateral cataract surgery. During her recent hospitalization, she was transiently in renal failure and required dialysis. There is a history of atrial fibrillation. There is report of recent bilateral pleural effusion. She had transaminitis during her severe sepsis with shock and multiorgan failure. SOCIAL HISTORY: No report of recent tobacco, alcohol or other forms of recreational drug use. FAMILY HISTORY: Noncontributory to her current hospitalization. ALLERGIES: SHE HAS NO KNOWN MEDICATION ALLERGIES. She is on treatment, presently, with Flagyl, IV vancomycin, and fluconazole. The rest of her medications are per the medication administration report. REVIEW OF SYSTEMS: The patient is awake and responsive. Her sensorium is clear. She has no headache or neck stiffness. No sore throat. No visual or auditory complaints. No chest pain. No abdominal pain. No genitourinary complaints. No pruritus or rash. EXAMINATION GENERAL: She is an adult woman. She is alert, responsive, coherent. She appears nontoxic and is no acute distress. VITALS: Maximum temperature recorded since readmission is 98.6 degrees Fahrenheit. She is hemodynamically stable. HEENT: She has no gross pallor. No obvious icterus. No oropharyngeal lesions. NECK: Supple. CHEST: Symmetric. LUNGS: Clear. HEART: Sounds are regular without significant murmur. ABDOMEN: Soft. The abdominal incision is intact. There is some moistness close to the area of the colostomy. No obvious drainage is detected from the incision wound. No acute erythema of the abdominal wall. The colostomy is intact. EXTREMITIES: There is no acute erythema of her extremities. Her white count is 11.1, hemoglobin 9.1, platelet count 128,000. Differentials on her white count show 56% neutrophils, 27% lymphocytes, 17% monocytes. Her serum creatinine is 0.5. There are no new culture report. Her chest x-ray done today reports a left retrocardiac opacity. IMPRESSION: This 83-year-old woman has been recovering from severe sepsis with shock and multiorgan failure. She had respiratory and renal failure. She was transiently on dialysis, which was discontinued when her kidney function normalized. She had transaminitis. She had prominent Clostridium difficile colitis necessitating exploratory laparotomy with colectomy and colostomy. She has septicemia due to methicillin-resistant Staphylococcus aureus from an infected peripherally inserted central catheter line, which was removed. Repeat blood cultures were negative. She has urinary tract infection with Klebsiella. She has a superficial decubitus wound of the gluteus close to the sacral area. The site is without acute erythema or purulent drainage. There is some maceration and erythema in the perineal area probably due to fungal dermatitis. I suggest we continue current antimicrobial therapy. We recheck urine culture. We test her colostomy content for Clostridium difficile. Monitor temperature, complete blood count, renal function, and continue local care to the sacral wound. I have discussed the findings and treatment with the nursing staff and the patient at the bedside. I will discuss the patient with Dr. Webster, who I thank for the consult and opportunity to participate in the patient's care. Job#: [id number] CQ
[2017-10-05 04:50] VITALS: BP 130/72
[2017-10-05] MEDS: METRONIDAZOLE 500MG/NS 100ML 100 ML IV SCH ×3 (05:31→21:52)
[2017-10-05 06:29] LABS: HEMATOCRIT 24.2 % (34.2-44.1); HEMOGLOBIN 8.3 g/dL (12.0-16.0); MEAN CORPUSCULAR HGB CONC 34.3 g/dL (31-35); MEAN CORPUSCULAR VOLUME 93.4 fL (81-99); PLATELET COUNT 123 x10e3/uL (140-360); RED BLOOD COUNT 2.59 x10e6/uL (3.6-5.1); RED CELL DISTRIBUTION WIDTH 20.5 % (11.7-14.4)
[2017-10-05 06:54] LABS: ALANINE AMINOTRANSFERASE 15 IU/L (0-55); ALBUMIN 1.8 g/dL (3.5-5.0); ALBUMIN/GLOBULIN RATIO 0.6 (0.8-2.0); ALKALINE PHOSPHATASE 166 IU/L (40-150); ANION GAP 8.7 mmol/L (8-16); BLOOD UREA NITROGEN 9 mg/dL (7-26); BUN/CREATININE RATIO 17 (6-25); CALCIUM 8.4 mg/dL (8.4-10.2); CARBON DIOXIDE 20 mmol/L (22-29); CHLORIDE 110 mmol/L (98-107); CREATININE, SERUM 0.54 mg/dL (0.57-1.11); EST GLOMERULAR FILTRATION RATE > 60 ML/MIN (60-); GLUCOSE 82 mg/dL (74-118); POTASSIUM 3.7 mmol/L (3.5-5.1); SODIUM 135 mmol/L (136-145)
[2017-10-05 08:00] VITALS: BP 139/56
[2017-10-05 08:01] VITALS: BP 139/56
[2017-10-05] MEDS: MONTELUKAST SODIUM 10 MG TAB PO SCH (09:05)
[2017-10-05] MEDS: FUROSEMIDE INJ 10 MG/ML 2 ML VIAL IV SCH (09:05)
[2017-10-05] MEDS: PANTOPRAZOLE SOD 40 MG TABEC PO SCH (09:05)
[2017-10-05] MEDS: MECLIZINE HCL 12.5 MG TAB PO SCH (09:05)
[2017-10-05] MEDS: VANCOMYCIN 1GM/NS 250 ML 250 ML IV SCH (09:05)
[2017-10-05] MEDS: LISINOPRIL 20 MG TAB PO SCH (09:05)
[2017-10-05] MEDS: FLUCONAZOLE 100 MG/NS 50 ML 50 ML IV SCH (12:14)
[2017-10-05 12:39] VITALS: BP 126/52
[2017-10-05] MEDS: NYSTATIN 15 GM POWDER UD BTL TOP SCH (16:52)
[2017-10-05 17:08] VITALS: BP 125/59
--- NOTE | 2017-10-05 18:10 | Progress Note ---
DATE: October 05, 2017 SUBJECTIVE: The patient is resting in bed. She is in no acute distress. She is not coughing. No dyspnea. No report of frequent changes in her colostomy. No genitourinary complaints. The nursing staff reports persistence of erythema and maceration between the perineal area. OBJECTIVE VITAL SIGNS: Her maximum temperature in the past 24 hours was up to 99 degrees Fahrenheit. Her most recent temperature is 98.4. GENERAL: She is hemodynamically stable. HEENT: She has no pallor, no icterus, no oropharyngeal lesions. NECK: Supple. CHEST: Symmetric. LUNGS: Clear. HEART: Sounds are regular without a new murmur. ABDOMEN: Soft. Bowel sounds are present. The abdominal incision is intact. Colostomy is in place. EXTREMITIES: There is no acute erythema of her extremities. PERINEAL AREA: There is erythema and maceration in the perineal area. LABORATORY DATA: Her white count is 10.4. Hemoglobin 8.3, platelet count 123,000, serum creatinine 0.5. Urine culture from October 04 is growing yeast. Clostridium difficile test on October 04 is not available. IMPRESSION: She has been on treatment for septicemia due to methicillin-resistant Staphylococcus aureus. and infected line was removed. She had exploratory laparotomy with colectomy and colostomy for prominent Clostridium difficile colitis. She had urinary tract infection with Klebsiella. She has a superficial sacral decubitus wound. It does not appear to be actively infected. Testing on her colostomy content for C. diff. is negative. PLAN: I suggest to continue current antimicrobial therapy including fluconazole. I have also asked nursing staff to change her Galeana catheter and apply Nystatin powder to the perineal area b.i.d. and after baths. Continue to monitor her abdominal wound for healing. Continue supportive care. Job#: [id number]
[2017-10-05 19:45] VITALS: BP 129/84
--- NOTE | 2017-10-05 20:13 | Progress Note ---
DATE: October 05, 2017 TIME: 1844 SUBJECTIVE: Overnight, no acute events. REVIEW OF SYSTEMS: The patient denies nausea, vomiting, shortness of breath, chest pain, dizziness. The patient reports diffuse nonspecific pain all over her body. PHYSICAL EXAMINATION: VITAL SIGNS: T 98.2, P 86, R 18, BP 125/59, SpO2 100% on 2 L/NC. GENERAL APPEARANCE: This is a tired-appearing elderly female, resting supine in bed. HEENT: Normocephalic. Oral mucosa moist and intact with poor dentition. Arcus senilis noted. No sinus tenderness. CV: S1 and S2 appreciated. LUNGS: Bilateral breath sounds clear with limited excursion. ABDOMEN: Soft with mild tenderness to light palpation over diffuse abdomen. Midline abdominal dressing clean, dry and intact. Right-sided ostomy in place with red tinged soft stool noted. EXTREMITIES: No edema times 4. DP/PT pulses faint. SCDs bilaterally. NEUROLOGIC: Alert and oriented times 3. Follows commands with gross motor function intact. SKIN: Dry. PSYCHIATRIC: Flat affect. LABORATORY DATA: Sodium 135, potassium 3.7, chloride 110, CO2 of 20, gap 8.7, BUN 9, creatinine 0.54, GFR is 60. Elevated alkaline phosphatase at 166 and low total protein and albumin present. Hematology indicates WBCs of 10.46 and H and H of 8.3 and 24.2 respectively. C-diff toxin is negative. Urinalysis is positive for leukocyte esterases and some WBCs in addition to yeast. MEDICATIONS: Reviewed. ASSESSMENT AND PLAN: This is an 82-year-old woman with: 1. Uncontrolled pain, on p.r.n. pain medication. 2. Fulminant colitis secondary to Clostridium difficile, status post total colectomy. Clostridium difficile negative. Infectious disease is managing. 3. Urinary tract infection. Intravenous antibiotic regimen. 4. Methicillin-resistant Staphylococcus aureus bacteremia and Klebsiella pneumonia infection. Per medication list/infectious disease consult. 5. Electrolyte derangement. Follow values in the morning. 6. Bilateral pleural effusions. Will encourage patient to turn, cough, deep breathe and provided incentive spirometry. 7. Prophylaxis. Sequential compression devices. DISPOSITION: Will continue physical therapy and engage case management for discharge planning to outside facility for continued SNF. Daughter at bedside, verbalized that son is dissatisfied with [facility], however, is unconvinced about transfer to [facility]. Additionally, due to the color and consistency change of colostomy, will obtain occult stool sample with lab values in the morning. Dictated by: Mina Lopez NP Job#: [id number] GE
[2017-10-05] MEDS: LATANOPROST(OPTH) 2.5 ML BTL OP SCH (21:38)
[2017-10-05] MEDS: PRAVASTATIN 20 MG TAB PO SCH (21:38)
[2017-10-05] MEDS: ACETAMINOPHEN/CODEINE 300MG - 30MG TAB PO PRN (21:51)
[2017-10-06] VITALS (11 sets, daily range): BP systolic 122–178; BP diastolic 51–77
[2017-10-06] MEDS: METRONIDAZOLE 500MG/NS 100ML 100 ML IV SCH ×3 (05:42→22:26)
[2017-10-06 06:28] LABS: ANION GAP 8.3 mmol/L (8-16); BLOOD UREA NITROGEN 7 mg/dL (7-26); BUN/CREATININE RATIO 14 (6-25); CALCIUM 8.4 mg/dL (8.4-10.2); CARBON DIOXIDE 20 mmol/L (22-29); CHLORIDE 107 mmol/L (98-107); EST GLOMERULAR FILTRATION RATE > 60 ML/MIN (60-); GLUCOSE 86 mg/dL (74-118); POTASSIUM 3.3 mmol/L (3.5-5.1); SODIUM 132 mmol/L (136-145)
[2017-10-06] MEDS ORDERED: FUROSEMIDE40 MG PO (07:46)
[2017-10-06] MEDS ORDERED: TYLENOL # 31 EA PO (07:46)
[2017-10-06] MEDS ORDERED: POTASSIUM CHLORIDE 20 MEQ TAB CR PO STA (07:55)
[2017-10-06] MEDS: FUROSEMIDE INJ 10 MG/ML 2 ML VIAL IV SCH (08:21)
[2017-10-06] MEDS: MONTELUKAST SODIUM 10 MG TAB PO SCH (08:21)
[2017-10-06] MEDS: MECLIZINE HCL 12.5 MG TAB PO SCH (08:21)
[2017-10-06] MEDS: LISINOPRIL 20 MG TAB PO SCH (08:21)
[2017-10-06] MEDS: PANTOPRAZOLE SOD 40 MG TABEC PO SCH (08:21)
[2017-10-06] MEDS: NYSTATIN 15 GM POWDER UD BTL TOP SCH ×2 (09:55→16:16)
[2017-10-06] MEDS: VANCOMYCIN 1GM/NS 250 ML 250 ML IV SCH (09:55)
[2017-10-06] MEDS: ACETAMINOPHEN/CODEINE 300MG - 30MG TAB PO PRN (10:00)
[2017-10-06] MEDS: FLUCONAZOLE 100 MG/NS 50 ML 50 ML IV SCH (11:41)
[2017-10-06] MEDS: BALSAM PERU/CASTOR OIL 60 GM OINT...G. TP SCH (17:00)
[2017-10-06] MEDS: LATANOPROST(OPTH) 2.5 ML BTL OP SCH (21:00)
[2017-10-06] MEDS: PRAVASTATIN 20 MG TAB PO SCH (21:00)
[2017-10-07] VITALS (7 sets, daily range): BP systolic 119–146; BP diastolic 57–69
[2017-10-07] MEDS ORDERED: SODIUM CHLORIDE 0.9% 250ML 250 ML ONE (05:37)
[2017-10-07] MEDS: METRONIDAZOLE 500MG/NS 100ML 100 ML IV SCH ×3 (05:52→21:01)
--- NOTE | 2017-10-07 06:18 | Progress Note ---
DATE: October 06, 2017 The patient is resting quietly. She is in no acute distress. She is not coughing. No dyspnea at rest. No vomiting. No diarrhea. No adverse medication reaction reported. PHYSICAL EXAMINATION VITALS: In the previous 24 hours, her maximum temperature was up to 98.8 degrees Fahrenheit. She is hemodynamically stable. HEENT: She has no gross pallor. No obvious icterus. No oropharyngeal lesions. NECK: Supple. CHEST: Symmetric. The lungs are clear. HEART: Sounds are regular without a new murmur. ABDOMEN: Soft. Bowel sounds are present. The colostomy is in place. The abdominal incision is intact. EXTREMITIES: There is no acute erythema of the extremities. On October 05, 2017, her white count was 10.4. Her creatinine on October 06, 2017, 0.5. There are no new positive culture reports. IMPRESSION: She is afebrile and stable. She has been recovering from severe sepsis with shock and multiorgan failure. She was transiently on dialysis for renal failure. She had fulminant Clostridium difficile colitis requiring exploratory laparotomy with colectomy and colostomy. She had a urinary tract infection with gram-negative bacilli. She has septicemia with methicillin-resistant Staphylococcus aureus. Clinically, she is much improved. I suggest continue current management. Continue supportive care. Job#: [id number] [facility]
--- NOTE | 2017-10-07 06:25 | Progress Note ---
DATE: October 07, 2017 SUBJECTIVE: The patient is fairly stable. She is in no distress. She is receiving her morning bath. She has no respiratory, gastrointestinal or genitourinary complaints. OBJECTIVE VITAL SIGNS: Maximum temperature in the past 24 hours was up to 98.8 degrees Fahrenheit. GENERAL: She is stable hemodynamically. HEENT: She has no pallor. There is no icterus. No oropharyngeal lesions. NECK: Supple. CHEST: Symmetric. LUNGS: Clear. HEART: Sounds are regular without a new murmur. ABDOMEN: Soft. Bowel sounds are present. The abdominal incision is intact and clean. Her colostomy is in place. EXTREMITIES: There is no acute erythema of her extremities. LABORATORY DATA: Her creatinine is 0.5 on October 06. Her white count on October 05 was 10.4, hemoglobin 8.3, platelet count 123,000. There are no new positive culture reports. A urine culture from October 04 grew yeast. IMPRESSION: She has been recovering from severe sepsis with shock and multiorgan failure due to prominent Clostridium difficile colitis. She had exploratory laparotomy with colectomy and colostomy. She had urinary tract infection with Klebsiella. She has septicemia due to methicillin-resistant Staphylococcus aureus associated with an infected line, which was removed. Repeat blood cultures were negative. She has form of dermatitis in the perineal area for which she is receiving treatment. I suggest continue current management. Monitor clinical response to treatment. Job#: [id number] CQ
[2017-10-07] MEDS ORDERED: ZOLPIDEM TARTRATE 5 MG TAB PO PRN (08:15)
[2017-10-07] MEDS: LISINOPRIL 20 MG TAB PO SCH (08:57)
[2017-10-07] MEDS: MONTELUKAST SODIUM 10 MG TAB PO SCH (08:57)
[2017-10-07] MEDS: FUROSEMIDE INJ 10 MG/ML 2 ML VIAL IV SCH (08:57)
[2017-10-07] MEDS: MECLIZINE HCL 12.5 MG TAB PO SCH (08:57)
[2017-10-07] MEDS: PANTOPRAZOLE SOD 40 MG TABEC PO SCH (08:57)
[2017-10-07] MEDS: NYSTATIN 15 GM POWDER UD BTL TOP SCH ×2 (09:59→15:21)
[2017-10-07] MEDS: BALSAM PERU/CASTOR OIL 60 GM OINT...G. TP SCH ×2 (10:00→15:30)
[2017-10-07] MEDS: COLLAGENASE OINTMENT 30 GM TUBE TP SCH (10:00)
[2017-10-07] MEDS: VANCOMYCIN 1GM/NS 250 ML 250 ML IV SCH (10:03)
[2017-10-07] MEDS: FLUCONAZOLE 100 MG/NS 50 ML 50 ML IV SCH (12:36)
[2017-10-07] MEDS: LATANOPROST(OPTH) 2.5 ML BTL OP SCH (21:00)
[2017-10-07] MEDS: PRAVASTATIN 20 MG TAB PO SCH (21:01)
[2017-10-08] VITALS: BP 137/63
[2017-10-08 04:00] VITALS: BP 144/69
[2017-10-08] MEDS: METRONIDAZOLE 500MG/NS 100ML 100 ML IV SCH ×2 (05:38→12:52)
[2017-10-08 07:34] VITALS: BP 144/69
[2017-10-08 07:42] VITALS: BP 112/53
--- NOTE | 2017-10-08 08:12 | Progress Note ---
DATE: October 06, 2017 TIME: 7 a.m. OVERNIGHT: No events. REVIEW OF SYSTEMS: Denies any chest pain or shortness of breath. Denies any fever, chills, sweats, headache or blurred vision. VITAL SIGNS: Reviewed. PHYSICAL EXAMINATION GENERAL: A tired-appearing woman resting supine in bed. HEENT: Anicteric. CARDIOVASCULAR: Normal S1 and S2. LUNGS: Moderate breath sounds. ABDOMEN: Soft and nontender. She has a right-sided ostomy in place. EXTREMITIES: No edema. SKIN: Dry. PSYCHIATRIC: Flat affect. LABS: Reviewed. MEDICATIONS: Reviewed. ASSESSMENT AND PLAN: An 82-year-old woman. 1. Diffuse pain. 2. Fulminant colitis secondary to Clostridium difficile, status post total colectomy. 3. Urinary tract infection. 4. Methicillin-resistant Staphylococcus aureus bacteremia and Klebsiella pneumonia infection. 5. Electrolyte derangement. 6. Bilateral pleural effusions. PLAN 1. Continue antibiotics. 2. Follow up cultures. 3. Continue antifungal. 4. Continue physical therapy. 5. Discharge planning. Job#: [id number]
[2017-10-08] MEDS: LISINOPRIL 20 MG TAB PO SCH (08:15)
--- NOTE | 2017-10-08 08:17 | Progress Note ---
DATE: October 07, 2017 TIME: 7 a.m. OVERNIGHT: She had problems falling asleep, and also wants to be transitioned to solid food. REVIEW OF SYSTEMS: Denies any dizziness, chest pain, shortness of breath, fever, chills, sweats. Denies any headache, blurred vision. Denies any leg pain. PHYSICAL EXAMINATION VITAL SIGNS: Reviewed. GENERAL: A tired-appearing woman resting in bed. HEENT: Anicteric. CARDIOVASCULAR: Normal S1 and S2. LUNGS: Moderate breath sounds. ABDOMEN: Soft and nondistended. She has right-sided colostomy. EXTREMITIES: No edema. SKIN: Dry. PSYCHIATRIC: Flat affect. LABS: Reviewed. MEDICATIONS: Reviewed. ASSESSMENT: An 82-year-old woman with: 1. Abdominal pain. 2. Fulminant colitis secondary to cultures of difficile: Status post total colectomy. 3. Urinary tract infection. 4. Methicillin-resistant Staphylococcus aureus bacteremia and Klebsiella pneumonia infection. 5. Electrolyte derangement. 6. Bilateral pleural effusion. 7. Funguria. PLAN 1. Continue antimicrobial. 2. Continue physical therapy. 3. Start Ambien for insomnia. 4. Transition to solid food. 5. The patient is ready for transition to facility, but son is still undecided. The patient will remain in observation. Job#: [id number] [facility]
[2017-10-08] MEDS: MECLIZINE HCL 12.5 MG TAB PO SCH (08:19)
[2017-10-08] MEDS: FUROSEMIDE INJ 10 MG/ML 2 ML VIAL IV SCH (08:19)
[2017-10-08] MEDS: BALSAM PERU/CASTOR OIL 60 GM OINT...G. TP SCH (08:19)
[2017-10-08] MEDS: PANTOPRAZOLE SOD 40 MG TABEC PO SCH (08:19)
[2017-10-08] MEDS: COLLAGENASE OINTMENT 30 GM TUBE TP SCH (08:19)
[2017-10-08] MEDS: MONTELUKAST SODIUM 10 MG TAB PO SCH (08:19)
[2017-10-08] MEDS: NYSTATIN 15 GM POWDER UD BTL TOP SCH (08:19)
--- NOTE | 2017-10-08 08:21 | Progress Note ---
DATE: October 08, 2017 TIME: 7:53 a.m. OVERNIGHT: Patient was discharged previously 2 days ago, but she remains in the hospital due to son being undecided as to skilled facility. REVIEW OF SYSTEMS: Denies any chest pain or shortness of breath. Denies any headache or blurred vision. Denies any leg pain. VITAL SIGNS: Reviewed. PHYSICAL EXAMINATION GENERAL: A tired-appearing woman resting in bed. HEENT: Anicteric. CARDIOVASCULAR: Normal S1 and S2. LUNGS: Moderate breath sounds. ABDOMEN: Soft. She has a right-sided ostomy in place. EXTREMITIES: No edema. SKIN: Dry. PSYCHIATRIC: Flat affect. NEUROLOGIC: Awake and alert. LABS: Reviewed. MEDICATIONS: Reviewed. ASSESSMENT AND PLAN: This is an 82-year-old woman. 1. Fulminant colitis secondary to Clostridium difficile, status post total colectomy. 2. Methicillin-resistant Staphylococcus aureus bacteremia and Klebsiella pneumonia infection. 3. Urinary tract infection. 4. Funguria. 5. Electrolyte derangement. 6. Bilateral pleural effusions. 7. Insomnia. PLAN 1. Continue regimen. 2. Continue Ambien. 3. Continue antimicrobial. 4. Continue physical therapy. 5. Patient is ready for discharge. She had been discharged 2 days ago and remains in the hospital due to son being undecided. We will keep the patient in observation while we await discharge at this time. In the meantime, will continue physical therapy. Job#: [id number]
[2017-10-08] MEDS: VANCOMYCIN 1GM/NS 250 ML 250 ML IV SCH (09:29)
[2017-10-08 11:27] VITALS: BP 119/55
[2017-10-08] MEDS: FLUCONAZOLE 100 MG/NS 50 ML 50 ML IV SCH (11:48)
--- NOTE | 2017-10-08 20:45 | Progress Note ---
DATE: NO DICTATION, LENGTH 7 SECONDS. Job#: [id number] MH
[2017-10-08] MEDS ORDERED: SIMVASTATIN 20 MG TAB PO SCH (21:00)
--- NOTE | 2017-10-08 21:03 | Progress Note ---
DATE: TIME OF SERVICE: 7:30 a.m. SUBJECTIVE: Overnight no events. VITAL SIGNS: Reviewed. PHYSICAL EXAMINATION GENERAL: A tired-appearing woman resting in bed. HEENT: Anicteric. CARDIOVASCULAR: Normal S1 and S2. No murmurs. ABDOMEN: Soft. Nondistended. She has ostomy in place. EXTREMITIES: No edema. SKIN: Dry. NEUROLOGIC: Awake but not fully interactive. PSYCHIATRIC: Flat affect. LABS: Reviewed. MEDICATIONS: Reviewed. ASSESSMENT AND PLAN: This is an 82-year-old woman. 1. Septic shock. 2. Fulminant colitis secondary to Clostridium difficile. 3. Acute respiratory failure, requiring temporary dialysis. 4. History of atrial fibrillation. 5. Urinary tract infection/methicillin-resistant Staphylococcus aureus bacteremia and Klebsiella pneumonia infection. 6. Shock liver. 7. Transaminitis. 8. Electrolyte derangement. 9. Obesity. 10. Hyperbilirubinemia. 11. Bilateral pleural effusion. 12. Vaginal discharge. PLAN 1. Continue diet. 2. Continue physical therapy. 3. Follow up hemoglobin and hematocrit. 4. Discharge planning. 5. Tolerating diet. Continue advancing diet. Job#: [id number]
--- NOTE | 2017-10-08 21:43 | Discharge Summary ---
PRINCIPAL DIAGNOSES 1. Septic shock. 2. Acute respiratory failure. 3. Fulminant colitis secondary to Clostridium difficile. 4. Acute renal failure, requiring temporary hemodialysis. 5. History of atrial fibrillation. 6. Urinary tract infection. 7. Methicillin-resistant Staphylococcus aureus bacteremia. 8. Klebsiella pneumoniae infection. 9. Shock liver. 10. Transaminitis. 11. Electrolyte derangement. 12. Obesity. 13. Hyperbilirubinemia. 14. Bilateral pleural effusion. 15. Vaginal discharge. SECONDARY DIAGNOSIS: Atrial fibrillation. CHIEF COMPLAINT: Diarrhea and low blood pressure. HISTORY OF PRESENT ILLNESS: An 82-year-old with diarrhea and low blood pressure. Please refer to H and P for further details. HOSPITAL COURSE: Patient had diarrhea. She had worsening leukocytosis. Found to have acute abdomen. Had a C. difficile, fulminant colitis, taken to the OR. Underwent total colectomy. Started on TPN and antibiotics. Patient did well, was eventually extubated. Tolerating solid diet now. Patient also treated with dialysis temporarily prior to the surgical procedure. Dialysis was quickly discontinued. Patient had good urine output. Renal function has recovered. Also, found to have urinary tract infection and MRSA bacteremia and Klebsiella pneumoniae infection, treated with antibiotic therapy by infectious disease. Had shocked liver and transaminitis and electrolyte derangement and bilateral pleural effusion. Patient did well. Subsequently will be transitioned to skilled facility. DISCHARGE MEDICATION: Per electronic medical record. FOLLOWUP 1. With primary care doctor in 1 week. 2. Surgery in 2 weeks. CONDITION ON DISCHARGE: Stable and improving. DISCHARGE LOCATION: Skilled facility. CHRISTPOHER SAENZ MD Job#: [id number] CQ
--- NOTE | 2017-10-09 17:07 | Discharge Summary ---
PRINCIPAL DIAGNOSES 1. Fulminant colitis secondary to Clostridium difficile status post total colectomy. 2. Methicillin-resistant Staphylococcus aureus bacteremia. 3. Klebsiella pneumoniae infection. 4. Urinary tract infection. 5. Funguria. 6. Electrolyte derangement. 7. Bilateral pleural effusion. 8. Insomnia. SECONDARY DIAGNOSIS: Clostridium difficile infection. CHIEF COMPLAINT: Abdominal pain. HISTORY OF PRESENT ILLNESS: An 82-year-old woman with abdominal pain. Refer to the H and P for further details of the hospital course. Patient was residing at [facility] but developed abdominal pain and worsening pain therefore brought back to the hospital by her son for further evaluation and management. Please refer to the H and P for further details of the hospital course. Patient continued treatment for fulminant colitis which had pretty much resolved. She had C. difficile infection treated, antimicrobial. Infectious diseases assumed management. Patient had MRSA bacteremia and Klebsiella pneumoniae infection and urinary tract infection and funguria. Treated with antifungal and antimicrobials. Bilateral effusion has improved. Respiratory status okay. Patient's pain was treated with medication regimen. DISCHARGE MEDICATIONS: Per electronic medical record. DISCHARGE LOCATION: [facility]. FOLLOWUP: With primary care doctor in 1 week and other specialists as needed. CHRISTOPHER SAENZ MD Job#: [id number] DG
== END 2017-10-08 15:37 ==
LOC: ER 23:16 → ERHOLD 10-04 02:33 → IMCU 10-04 03:46
PROVIDERS: ADMIT Internal Medicine; ATTEND Internal Medicine
DX: A04.72 Enterocolitis due to Clostridium difficile, not specified as recurrent (principal); R10.9 Unspecified abdominal pain; N39.0 Urinary tract infection, site not specified; R78.81 Bacteremia; B95.62 Methicillin resistant Staphylococcus aureus infection as the cause of diseases classified elsewhere; B96.1 Klebsiella pneumoniae [K. pneumoniae] as the cause of diseases classified elsewhere; J90 Pleural effusion, not elsewhere classified; B36.8 Other specified superficial mycoses; G47.00 Insomnia, unspecified; E87.8 Other disorders of electrolyte and fluid balance, not elsewhere classified; I48.91 Unspecified atrial fibrillation; E80.6 Other disorders of bilirubin metabolism; N89.8 Other specified noninflammatory disorders of vagina; K94.19 Other complications of enterostomy; L89.152 Pressure ulcer of sacral region, stage 2
CPT/HCPCS: 36415 ×4; 71045; 80048 ×2; 80053; 81001; 82270; 84132; 85007; 85025; 85027; 87086; 87493; 97110 ×2; 97139 ×2; 97162; 97530 ×3; 99284; G0378 ×5; G8981; G8982; J1450 ×4; J1940 ×5; J2270; J2405; J3370 ×5; J7040; J7050 ×2; S0164 ×4